=== PATIENT | female | born 1950 ===

== ENCOUNTER 2016-12-25 09:05 | Emergency (ER) | payer MEDICARE, OTHER ==
[2016-09-13 23:18] VITALS: BMI 29.8
--- NOTE | 2016-12-26 09:04 | RAD ---
HISTORY: Not available COMPARISON: No prior. TECHNIQUE: Chest PA and lateral FINDINGS: LUNGS: No active pulmonary disease. PLEURA: No significant pleural effusion identified. No pneumothorax apparent. CARDIOVASCULAR: Normal. OSSEOUS STRUCTURES: No significant abnormalities. VISUALIZED UPPER ABDOMEN: Normal. OTHER FINDINGS: None. IMPRESSION: No active disease.
== END 2016-12-25 12:30 | disposition home or self-care (01) ==
LOC: H.EDERROR 09:05 → H.ER 09:05 → H.EDERROR 12:30
DX: J40 Bronchitis, not specified as acute or chronic (principal)

== ENCOUNTER 2017-09-21 12:34 | Emergency (ER) | payer MEDICARE, OTHER ==
[2017-09-21 12:34] VITALS: BMI 29.8
[2017-09-21 12:48] VITALS: PULSE 90; RESP 18; TEMP 98; O2SAT 100
--- NOTE | 2017-09-21 14:53 | ED PDOC ---
Lower Extremity Pain/Injury Time Seen by Provider: 09/21/17 14:10 Chief Complaint (Nursing): Lower Extremity Problem/Injury Chief Complaint (Provider): hip pain History Per: Patient Additional Complaint(s): 67-year-old female presents with left hip pain that started yesterday. Patient was walking when she stumbled on her right leg causing sharp pain to left hip. Patient is concerned because she has history of L hip replacement. She is able to walk with cane that she uses at baseline. No medication taken for pain relief. PMD: Dr. Kwon Past Medical History Reviewed: Historical Data, Nursing Documentation, Vital Signs Vital Signs: Last Vital Signs Temp 98 F 09/21/17 12:44 Pulse 90 09/21/17 12:44 Resp 18 09/21/17 12:44 BP 168/73 H 09/21/17 12:44 Pulse Ox 100 09/21/17 12:44 - Medical History PMH: Anxiety, Asthma, CAD (Hx of cardiac stent placement), Depression, Diabetes , HTN, Hypothyroidism, Seizures - Surgical History Surgical History: Coronary Stent Other surgeries: Left hip replacement - Family History Family History: States: No Known Family Hx - Living Arrangements Living Arrangements: With Family - Social History Current smoker - smoking cessation education provided: No Alcohol: None Drugs: Denies - Home Medications Home Medications: Ambulatory Orders Medication Instructions Recorded Insulin Human NPH 25 units SC QAM 01/18/14 Insulin Pork Regular 6 units SC AMHS 01/18/14 Levothyroxine Sodium [Synthroid] 1 tab PO DAILY 01/18/14 Nitrofurantoin Macrocrystals 1 cap PO BID #10 cap 07/14/15 [Macrobid] Insulin Human Isophane (NPH) 25 - 26 unit SC QAM 08/29/16 [Novolin N] Insulin Human Regular [Novolin R] 3 unit SC DIN 08/29/16 Insulin Human Regular [Novolin R] 6 unit SC BRK 08/29/16 Levothyroxine [Synthroid] 112 mcg PO DAILY 08/29/16 Fluconazole 150 mg PO ONCE #1 tablet 09/01/16 - Allergies Allergies/Adverse Reactions: Allergies Allergy/AdvReac Type Severity Reaction Status Date / Time iodine Allergy DIZZINESS Verified 09/13/16 23:25 Penicillins Allergy RASH Verified 09/13/16 23:25 Wells Criteria for PE - Wells Criteria for Pulmonary Embolism Clinical Signs and Symptoms of DVT: No P.E is #1 Diagnosis, or Equally Likely: No Heart Rate >100: No Immobilization at least 3 days;Surgery previous 4 weeks: No Previous, objectively diagnosed PE or DVT: No Hemoptysis: No Malignancy w/treatment within 6 months, or palliative: No Total Score: 0 Review of Systems ROS Statement: Except As Marked, All Systems Reviewed And Found Negative Musculoskeletal: Positive for: Other (left hip pain) Physical Exam - Reviewed Nursing Documentation Reviewed: Yes Vital Signs Reviewed: Yes - Physical Exam Appears: Positive for: Well, Non-toxic, No Acute Distress Skin: Negative for: Rash Eye Exam: Positive for: Normal appearance Cardiovascular/Chest: Positive for: Regular Rate, Rhythm Respiratory: Positive for: Normal Breath Sounds. Negative for: Respiratory Distress Extremity: Positive for: Normal ROM Neurologic/Psych: Positive for: Alert, Oriented, Gait (steady with cane that she uses at baseline) - ECG O2 Sat by Pulse Oximetry: 100 Pulse Ox Interpretation: Normal - Other Rad Pelvis and Left Hip x-ray X-Ray: Interpreted by Me, Viewed By Me X-Ray Interpretation: prosthesis is grossly aligned, no acute fx or dis Medical Decision Making Medical Decision Makin67 year old with left hip pain Plan: X-ray left hip and pelvis Pain meds declined Patient is aware of x-ray results, all questions answered. Advised Tylenol for pain and follow up with primary doctor for any persistent symptoms. Disposition - Clinical Impression Clinical Impression: Hip pain - Patient ED Disposition Is Patient to be Admitted: No Counseled Patient/Family Regarding: Diagnosis, Need For Followup - Disposition Referrals: Ari Kwon DO [[facility]] - Disposition: Routine/Home Disposition Time: 15:56 Condition: STABLE Additional Instructions: Tylenol as needed for pain. Follow-up with primary doctor for any persistent symptoms. Instructions: Hip Pain (ED) Forms: [employer] ([place]amese)
[2017-09-21 16:17] VITALS: BP 132/72
--- NOTE | 2017-09-21 16:52 | RAD ---
PROCEDURE: Left Hip X-ray Radiographs. HISTORY: Pain. No history of recent/ related trauma provided anatomic area of interest greater trochanteric region COMPARISON: None. FINDINGS: BONES: Satisfactory position of bipolar hip arthroplasty on the left. No evidence of orthopedic hardware failure. JOINTS: Degenerative changes noted contralateral, right hip SOFT TISSUES: Normal. OTHER FINDINGS: None. IMPRESSION: No significant or acute findings to account for/ related to the clinical presentation.
== END 2017-09-21 16:17 | disposition home or self-care (01) ==
LOC: H.ER 12:34
DX: M25.552 Pain in left hip (principal)

== ENCOUNTER 2017-10-16 11:36 | Inpatient (IN) | payer MEDICARE, OTHER ==
[2017-10-16 11:36] VITALS: BMI 29.8
[2017-10-16] MEDS ORDERED: Sucralfate 1 gm/10 ml Oral Susp UD PO STA (12:35)
--- NOTE | 2017-10-16 12:44 | ED PDOC ---
HPI: Chest Pain Time Seen by Provider: 10/16/17 12:00 Chief Complaint (Nursing): Abdominal Pain Chief Complaint (Provider): Abdominal Pain History Per: Patient History/Exam Limitations: no limitations Onset/Duration Of Symptoms: Hrs (x4), Sudden Onset Current Symptoms Are (Timing): Still Present Additional Complaint(s): 67 year old female with medical history of seizures, hypertension and diabetes, presents to the emergency department for acute onset of severe substernal chest pain associated with burning sensation radiating to back ongoing since 0800 earlier today. Patient reported having her normal breakfast of oatmeal and coffee when symptoms began. Denied any fever, chills, dizziness, shortness of breath, nausea, vomiting, abdominal pain or headache. PMD: Ari Kwon MD Past Medical History Reviewed: Historical Data, Nursing Documentation, Vital Signs Vital Signs: Last Vital Signs Temp 98.0 F 10/16/17 11:54 Pulse 89 10/16/17 11:54 Resp 20 10/16/17 11:54 BP 161/83 H 10/16/17 11:54 Pulse Ox 100 10/16/17 12:51 - Medical History PMH: Anxiety, Asthma, CAD (Hx of cardiac stent placement), Depression, Diabetes , HTN, Hypothyroidism, Seizures Denies: Chronic Kidney Disease - Surgical History Surgical History: Coronary Stent Denies: No Surg Hx - Family History Family History: States: Unknown Family Hx - Social History Current smoker - smoking cessation education provided: No Alcohol: None Drugs: Denies - Immunization History Hx Tetanus Toxoid Vaccination: No Hx Influenza Vaccination: No Hx Pneumococcal Vaccination: No - Home Medications Home Medications: Ambulatory Orders Medication Instructions Recorded Insulin Human NPH 25 units SC QAM 01/18/14 Insulin Pork Regular 6 units SC AMHS 01/18/14 Levothyroxine Sodium [Synthroid] 1 tab PO DAILY 01/18/14 Nitrofurantoin Macrocrystals 1 cap PO BID #10 cap 07/14/15 [Macrobid] Insulin Human Isophane (NPH) 25 - 26 unit SC QAM 08/29/16 [Novolin N] Insulin Human Regular [Novolin R] 3 unit SC DIN 08/29/16 Insulin Human Regular [Novolin R] 6 unit SC BRK 08/29/16 Levothyroxine [Synthroid] 112 mcg PO DAILY 01/20/17 Fluconazole 150 mg PO ONCE #1 tablet 09/01/16 - Allergies Allergies/Adverse Reactions: Allergies Allergy/AdvReac Type Severity Reaction Status Date / Time iodine Allergy DIZZINESS Verified 10/16/17 11:54 Penicillins Allergy RASH Verified 10/16/17 11:54 Review of Systems ROS Statement: Except As Marked, All Systems Reviewed And Found Negative Constitutional: Negative for: Fever, Chills Cardiovascular: Positive for: Chest Pain (substernal with burning sensation) Respiratory: Negative for: Shortness of Breath Gastrointestinal: Negative for: Nausea, Vomiting, Abdominal Pain Musculoskeletal: Positive for: Back Pain Neurological: Negative for: Headache, Dizziness Physical Exam - Reviewed Nursing Documentation Reviewed: Yes Vital Signs Reviewed: Yes - Physical Exam Appears: Positive for: Non-toxic, Uncomfortable, In Acute Distress (moderately due to pain) Cardiovascular/Chest: Positive for: Regular Rate, Rhythm, Chest Non Tender (on palpation) Respiratory: Positive for: Normal Breath Sounds. Negative for: Decreased Breath Sounds, Respiratory Distress Pulses-Dorsalis Pedis (L): 2+ Pulses-Dorsalis Pedis (R): 2+ Gastrointestinal/Abdominal: Positive for: Normal Exam, Soft. Negative for: Tenderness, Mass Extremity: Positive for: Normal ROM (upper/lower), Capillary Refill (<2 seconds) . Negative for: Pedal Edema (bilateral), Calf Tenderness (bilateral) Neurologic/Psych: Positive for: Alert, Oriented - Laboratory Results Result Diagrams: 10/16/17 12:57 10/16/17 12:57 - ECG O2 Sat by Pulse Oximetry: 100 (RA) Pulse Ox Interpretation: Normal Medical Decision Making Medical Decision Making: Initial Impression: Acute onset of substernal chest pain Initial Plan: * EKG * CMP * Lipase * Troponin I * CBC * CXR * Carafate Oral susp 1gm PO * Famotidine 20mg IVP * Morphine 2mg IVP * Accucheck Scribe Attestation: Documented by Sonam Solares, acting as a scribe for Nathan Granados III, DO. Provider Scribe Attestation: All medical record entries made by the Scribe were at my direction and personally dictated by me. I have reviewed the chart and agree that the record accurately reflects my personal performance of the history, physical exam, medical decision making, and the department course for this patient. I have also personally directed, reviewed, and agree with the discharge instructions and disposition. patient still has persistent chest pain. Given age and h/o DM and hypertension, will admit for observation. Disposition - Clinical Impression Clinical Impression: Chest pain Doctor Will See Patient In The: Hospital - Disposition Disposition: Transfer of Care Disposition Time: 14:30 Condition: FAIR Forms: [facility] ([place]) - Pt Status Changed To: Hospital Disposition Of: Observation - POA Present On Arrival: None
[2017-10-16] MEDS ORDERED: Sucralfate 1 gm/10 ml Oral Susp UD ONE (13:03)
[2017-10-16 13:08] LABS: BASO # 0.1 K/uL (0.0-0.2); BASO % 1.4 % (0.0-2.0); EOS % 0.4 % (0.0-4.0); HEMOGLOBIN 13.2 g/dL (12.0-16.0); LYMPH # 1.1 K/uL (1.0-4.3); LYMPH % 12.6 % (20.0-40.0); MEAN CELL VOLUME 90.6 fl (81.0-99.0); MEAN CORPUSCULAR HEMOGLOBIN 30.5 pg (27.0-31.0); MEAN CORPUSCULAR HGB CONC 33.7 g/dL (33.0-37.0); MEAN PLATELET VOLUME 9.4 fl (7.2-11.7); MONO # 0.4 K/uL (0.0-0.8); MONO % 4.9 % (0.0-10.0); NEUT # 7.4 K/uL (1.8-7.0); NEUT % 80.7 % (50.0-75.0); RBC 4.33 Mil/uL (3.80-5.20); RED CELL DISTRIBUTION WIDTH 14.3 % (11.5-14.5); WHITE BLOOD COUNT 9.1 K/uL (4.8-10.8)
[2017-10-16 13:19] LABS: ALB/GLOB RATIO 1.1 (1.0-2.1); ALBUMIN 4.7 g/dL (3.5-5.0); ALT/SGPT 29 U/L (9-52); AST/SGOT 28 U/L (14-36); BLOOD UREA NITROGEN 16 mg/dl (7-17); CALCIUM 10.7 mg/dL (8.4-10.2); GFR AFRICAN-AMERICAN > 60; GFR NON-AFRICAN AMERICAN > 60; LIPASE 13 U/L (23-300)
--- NOTE | 2017-10-16 15:13 | RAD ---
HISTORY: chest pain radiating to the back COMPARISON: Comparison chest 12/25/2016 TECHNIQUE: Chest PA and lateral FINDINGS: LUNGS: No active pulmonary disease. PLEURA: No significant pleural effusion identified. No pneumothorax apparent. CARDIOVASCULAR: Normal. OSSEOUS STRUCTURES: Re- demonstrated is a chronic anterior wedge compression fracture of what appears to be the the T12 segment. Mild multilevel degenerative spondylosis of the thoracic spine. No significant abnormalities. VISUALIZED UPPER ABDOMEN: Normal. OTHER FINDINGS: None. IMPRESSION: No acute consolidation.
[2017-10-16] MEDS ORDERED: Alum-Mag Hydrox-Simethicone Susp (30 mL) PO STA (15:46)
--- NOTE | 2017-10-16 16:54 | CP.PCM.CON ---
History of Present Illness - History of Present Illness History of Present Illness: pt very poor historian. unable to answer most questions, appears very anxious and uncomfortable. pt states she has had substernal burning since this morning. she says this radiates to her back. denies palp, sob, vommiting. she admits to nausea, mild abd discomfort. Pt admits to intermittent left sided cp for 3 days ( 2 weeks ago). she took her asa for 3 days and these episodes resolved. today pt recieved pepcid, viscous lido and carafate without relief. pt has a hx of pci to prox lad and mid om1 in 2011 at [facility]. she is noncompliant with asa, taking it only on occasion. Review of Systems - Review of Systems Systems not reviewed;Unavailable: Acuity of Condition, Uncooperative Past Patient History - Infectious Disease Hx of Infectious Diseases: None - Past Medical History & Family History Past Medical History?: Yes - Past Social History Smoking Status: Current Some Days Smoker Chewing Tobacco Use: No Cigar Use: No Alcohol: None Drugs: Denies - CARDIAC Hx Cardiac Disorders: Yes - PULMONARY Hx Asthma: Yes - NEUROLOGICAL Hx Seizures: Yes - HEENT Hx HEENT Problems: No - RENAL Hx Chronic Kidney Disease: No - ENDOCRINE/METABOLIC Hx Endocrine Disorders: Yes - HEMATOLOGICAL/ONCOLOGICAL Hx Blood Transfusions: Yes - INTEGUMENTARY Hx Dermatological Problems: No - MUSCULOSKELETAL/RHEUMATOLOGICAL Hx Falls: Yes - GASTROINTESTINAL Hx Gastrointestinal Disorders: No - GENITOURINARY/GYNECOLOGICAL Hx Genitourinary Disorders: No - PSYCHIATRIC Hx Psychophysiologic Disorder: Yes - SURGICAL HISTORY Hx Coronary Stent: Yes - ANESTHESIA Hx Anesthesia: Yes Hx Anesthesia Reactions: No Hx Malignant Hyperthermia: No Meds Allergies/Adverse Reactions: Allergies Allergy/AdvReac Type Severity Reaction Status Date / Time iodine Allergy DIZZINESS Verified 10/16/17 11:54 Penicillins Allergy RASH Verified 10/16/17 11:54 Physical Exam - Constitutional Appears: In Acute Distress - Head Exam Head Exam: ATRAUMATIC, NORMAL INSPECTION, NORMOCEPHALIC - Eye Exam Eye Exam: EOMI, Normal appearance, PERRL. absent: Conjunctival injection, Nystagmus, Periorbital swelling, Periorbital tenderness, Scleral icterus Pupil Exam: NORMAL ACCOMODATION, PERRL. absent: Fixed, Irregular, Miosis, Mydriatic, Unequal - ENT Exam ENT Exam: Mucous Membranes Moist, Normal Exam. absent: Mucous Membranes Dry, Normal External Ear Exam, Normal Oropharynx, TM's Normal Bilaterally - Neck Exam Neck exam: Positive for: Normal Inspection. Negative for: Full Rom, Lymphadenopathy, Meningismus, Tenderness, Thyromegaly - Respiratory Exam Respiratory Exam: Clear to Auscultation Bilateral, NORMAL BREATHING PATTERN. absent: Accessory Muscle Use, Chest Wall Tenderness, Decreased Breath Sounds, Prolonged Expiratory Phase, Rales, Rhonchi, Wheezes, Respiratory Distress, Stridor - Cardiovascular Exam Cardiovascular Exam: REGULAR RHYTHM, +S1, +S2, Systolic Murmur. absent: Bradycardia, Tachycardia, Clicks, Diastolic murmur, Gallop, Irregular Rhythm, JVD, RRR, Rubs, +S4 - GI/Abdominal Exam GI & Abdominal Exam: Normal Bowel Sounds, Soft, Tenderness. absent: Bruit, Diminished Bowel Sounds, Distended, Firm, Guarding, Hernia, Hyperactive Bowel Sounds, Hypoactive Bowel Sounds, Mass, Organomegaly, Pulsatile Mass, Rebound, Rigid - Rectal Exam Rectal Exam: Deferred. absent: Black Stool, Bloody Stool, Hemorrhoids, Fecal Impaction, NORMAL INSPECTION - Exam Exam: absent: Circumcision, NORMAL INSPECTION, Scrotal Swelling, Testicular Tenderness, Uretheral Discharge, Testicular Vertical Lie, Bladder Distension External exam: absent: Ecchymosis, Erythema, Lacerations, Lesions, NORMAL EXTERNAL EXAM, Swelling Speculum exam: absent: Cervical Discharge, Erythema, Foreign Body, Laceration, NORMAL SPECULUM EXAM, Tissue, Vaginal Bleeding, Vaginal Discharge Bimanual exam: absent: Adenexal Mass, Adnexal, Cervical Motion Tendernes, NORMAL BIMANUAL EXAM, Uterine Enlargement, Uterine Tenderness - Extremities Exam Extremities exam: Positive for: normal inspection. Negative for: calf tenderness, full ROM, joint swelling, normal capillary refill, pedal edema, tenderness, pedal pulses present - Back Exam Back exam: NORMAL INSPECTION. absent: CVA tenderness (L), CVA tenderness (R), FULL ROM, muscle spasm, paraspinal tenderness, rash noted, tenderness, vertebral tenderness - Neurological Exam Neurological exam: Alert, CN II-XII Intact, Oriented x3 - Psychiatric Exam Psychiatric exam: Anxious - Skin Skin Exam: Dry, Intact, Normal Color, Warm Results - Vital Signs Recent Vital Signs: Last Vital Signs Temp 97.7 F 10/16/17 16:10 Pulse 64 10/16/17 16:10 Resp 18 10/16/17 16:10 BP 150/54 L 10/16/17 16:10 Pulse Ox 97 10/16/17 15:55 - Labs Result Diagrams: 10/16/17 12:57 10/16/17 12:57 Labs: Laboratory Results - last 24 hr 10/16/17 10/16/17 10/16/17 12:13 12:57 12:57 WBC 9.1 RBC 4.33 Hgb 13.2 Hct 39.3 MCV 90.6 MCH 30.5 MCHC 33.7 RDW 14.3 Plt Count 261 MPV 9.4 Neut % (Auto) 80.7 H Lymph % (Auto) 12.6 L [place] % (Auto) 4.9 Eos % (Auto) 0.4 Baso % (Auto) 1.4 Neut # (Auto) 7.4 H Lymph # (Auto) 1.1 [place] # (Auto) 0.4 Eos # (Auto) 0.0 Baso # (Auto) 0.1 Sodium 144 Potassium 4.4 Chloride 102 Carbon Dioxide 28 Anion Gap 18 BUN 16 Creatinine 0.7 Est GFR ( Amer) > 60 Est GFR (Non-Af Amer) > 60 POC Glucose (mg/dL) 158 H Random Glucose 94 Calcium 10.7 H Total Bilirubin 0.6 AST 28 ALT 29 Alkaline Phosphatase 97 Troponin I 0.0780 Total Protein 8.9 H Albumin 4.7 Globulin 4.2 H Albumin/Globulin Ratio 1.1 Lipase 13 L 10/16/17 10/16/17 13:48 14:41 WBC RBC Hgb Hct MCV MCH MCHC RDW Plt Count MPV Neut % (Auto) Lymph % (Auto) [place] % (Auto) Eos % (Auto) Baso % (Auto) Neut # (Auto) Lymph # (Auto) [place] # (Auto) Eos # (Auto) Baso # (Auto) Sodium Potassium Chloride Carbon Dioxide Anion Gap BUN Creatinine Est GFR ( Amer) Est GFR (Non-Af Amer) POC Glucose (mg/dL) 48 L 142 H Random Glucose Calcium Total Bilirubin AST ALT Alkaline Phosphatase Troponin I Total Protein Albumin Globulin Albumin/Globulin Ratio Lipase - EKG Data EKG Interpreted by: Myself EKG shows normal: Sinus rhythm Rate: Normal Assessment & Plan (1) Abdominal pain Status: Acute (2) HTN (hypertension) Status: Acute (3) Chest pain Status: Acute (4) CAD (coronary artery disease) Status: Acute (5) Diabetes mellitus Status: Acute - Assessment and Plan (Free Text) Plan: ETIOLOGY OF PTS SUBSTERNAL CP IS UNCLEAR. FIRST TROP AND EKG WNL. TREATMENT FOR GERD DID NOT BRING ON RELIEF. SL NTG DID NOT BRING RELIEF. WILL ORDER ECHO, STRESS TEST, ASA AND PLAVIX. LOW DOSE METOPROLOL. CONT TELE MONITOR. WILL NEED FULL LIST OF PTS HOME MEDS. NO REGLAN GIVEN HX OF SZ D/O
[2017-10-16] MEDS ORDERED: Bismuth Subsalicylate 262 mg Chew Tab PO PRN (18:32)
--- NOTE | 2017-10-16 19:40 | PCM.RRT ---
BOIL OFF MACHINE OPERATOR CLOTH Nurse Assessment - Situation Location: telemetry Room Number: 407-2 BOIL OFF MACHINE OPERATOR CLOTH Reason for Call: Change in Mental Status BOIL OFF MACHINE OPERATOR CLOTH Called By: RN - IV IV Inserted during BOIL OFF MACHINE OPERATOR CLOTH?: No - Respiratory Oxygen Delivery Method: Nasal Cannula Received Nebulizer Treatments: No Was the Patient Ventilated with Bag/Mask 100% O2?: No Secretions Suctioned?: No Was the Patient Intubated?: No Was the Patient Placed on a Ventilator?: No - Medication Medications Administered During BOIL OFF MACHINE OPERATOR CLOTH: Xanax 0.25 mg PO - Diagnostic Test Ordered EKG: No Chest X-Ray: No CT Scan: No - Vital Signs Vital Signs: Rapid Response Vital Sign Blood Pressure 176/75 Pulse Rate 64 Respiratory Rate 21 Temperature 97.5 F Oxygen Saturation 99 - Time BOIL OFF MACHINE OPERATOR CLOTH Ended Time BOIL OFF MACHINE OPERATOR CLOTH Ended: 18:55 - Vital Signs at end of BOIL OFF MACHINE OPERATOR CLOTH Vital Signs at end of BOIL OFF MACHINE OPERATOR CLOTH: Rapid Response End Vital Sign Blood Pressure 176/73 Pulse Rate 64 Respiratory Rate 21 O2 Sat by Pulse Oximetry 99 - Recommendations BOIL OFF MACHINE OPERATOR CLOTH Level of Care Recommendations: Remain in current setting I.Reason for BOIL OFF MACHINE OPERATOR CLOTH - A) Acute Change in Patient: Subjective: S: 67 y/o female with PMHx of HTN, HLD, DM, CAD s/p stenting (several years ago) , 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 Nurse whom was at bedside reported the pt stopped responding and had associated "stiffening" of upper extremities. Entire episode lasted approx 5-10secs as per witness. No associated weakness, numbness/tingling, post-ictal confusion, bladder/bowel incontinence. O: ROS: no fever/chills, headaches, changes in vision, dizziness/lightheadedness , CP/SOB/Palpitations, N/V/D/C, urinary symptoms, weakness, muscle pain, bladder /bowel incontinence, numbness/tingling. PE: Vitals on presentation: 97. 5 F, BP 176/75, HR 99, POX: 99% RA Gen: AAOx3, NAD Cardio: RRR, S1S2+, no MRG Lungs: CTA B/L, no WRR Neuro: CN II-XII grossly intact, no pronator drift, no asymmetry, msk strength 5 /5 b/l in upper and lower extremities, sensation intact Assessment: 67 y/o female with BOIL OFF MACHINE OPERATOR CLOTH called for suspected breakthrough seizure activity. Plan: vitals stable, pt alert and oriented, no focal neurological deficit, no seizure activity witnessed during BOIL OFF MACHINE OPERATOR CLOTH admission labs and imaging reviewed with attending -prolactin ordered -non contrast head CT ordered -EEG ordered -attending discussed case with admitting MD, wanting neurology consult -consult placed with Dr. Cohn Vitals on BOIL OFF MACHINE OPERATOR CLOTH end: BP: 176/73, HR 64, RR 16 POX 99% - Neurological Status (Select all that apply): Alert, Responsive, Oriented, Verbal, Follows Commands - Respiratory Oxygen Delivery Method: Nasal Cannula @L/min Oxygen Flow Rate: 2
[2017-10-16] MEDS ORDERED: Enoxaparin 40 mg Syringe SC SCH (21:00)
[2017-10-16 21:05] LABS: PROLACTIN 22.8 ng/mL (3.0-18.9)
[2017-10-16] MEDS: Enoxaparin 80 mg Syringe SC SCH (22:07)
--- NOTE | 2017-10-17 07:33 | CT ---
PROCEDURE: CT HEAD WITHOUT CONTRAST. HISTORY: questionable seizure COMPARISON: None available. TECHNIQUE: Axial computed tomography images were obtained through the head/brain without intravenous contrast. Radiation dose: Total exam DLP = mGy-cm. This CT exam was performed using one or more of the following dose reduction techniques: Automated exposure control, adjustment of the mA and/or kV according to patient size, and/or use of iterative reconstruction technique. FINDINGS: HEMORRHAGE: No intracranial hemorrhage. BRAIN: No mass effect or edema. No atrophy or chronic microvascular ischemic changes. VENTRICLES: Unremarkable. No hydrocephalus. CALVARIUM: Unremarkable. PARANASAL SINUSES: Unremarkable as visualized. No significant inflammatory changes. MASTOID AIR CELLS: Unremarkable as visualized. No inflammatory changes. OTHER FINDINGS: None. IMPRESSION: Normal CT of the Head.
[2017-10-17] MEDS ORDERED: Insulin Regular 100 units/ml SC SCH ×2 (08:00→17:00)
[2017-10-17 08:03] LABS: HEMOGLOBIN 12.5 g/dL (12.0-16.0); MEAN CELL VOLUME 91.5 fl (81.0-99.0); MEAN CORPUSCULAR HEMOGLOBIN 30.6 pg (27.0-31.0); MEAN CORPUSCULAR HGB CONC 33.5 g/dL (33.0-37.0); RBC 4.07 Mil/uL (3.80-5.20); RED CELL DISTRIBUTION WIDTH 14.6 % (11.5-14.5); WHITE BLOOD COUNT 7.7 K/uL (4.8-10.8)
[2017-10-17 08:14] LABS: ALB/GLOB RATIO 1.1 (1.0-2.1); ALBUMIN 4.2 g/dL (3.5-5.0); ALT/SGPT 31 U/L (9-52); AMYLASE 44 U/L (30-110); AST/SGOT 56 U/L (14-36); BLOOD UREA NITROGEN 13 mg/dl (7-17); CALCIUM 10.2 mg/dL (8.4-10.2); GFR AFRICAN-AMERICAN > 60; GFR NON-AFRICAN AMERICAN > 60; LIPASE 17 U/L (23-300)
[2017-10-17] MEDS: Levothyroxine 125 MCG TAB PO SCH (08:20)
[2017-10-17 08:34] LABS: T4 7.95 ug/dl (5.5-11.0)
[2017-10-17] MEDS ORDERED: Enoxaparin 40 mg Syringe SC SCH (09:00)
[2017-10-17 10:21] LABS: BARBITURATES, UR NEGATIVE (NEGATIVE); BENZODIAZEPINES, UR NEGATIVE (NEGATIVE); OPIATES, UR NEGATIVE (NEGATIVE); PHENCYCLIDINE, UR NEGATIVE (NEGATIVE)
[2017-10-17] MEDS: Enoxaparin 80 mg Syringe SC SCH ×2 (10:58→21:35)
[2017-10-17] MEDS: Cholecalciferol 1,000 INTLU TAB PO SCH (10:58)
--- NOTE | 2017-10-17 11:04 | CARD ---
APPROVED REPORT EXAM: Two-dimensional and M-mode echocardiogram with Doppler and color Doppler. Other Information Quality : GoodRhythm : NSR INDICATION Chest Pain 2D DIMENSIONS IVSd1.24 (0.7-1.1cm)LVDd4.56 (3.9-5.9cm) LVOT Diameter1.79 (1.8-2.4cm)PWd0.78 (0.7-1.1cm) IVSs1.06 (0.8-1.2cm)LVDs3.36 (2.5-4.0cm) FS (%) 26.3 %PWs0.90 (0.8-1.2cm) M-Mode DIMENSIONS Left Atrium (MM)3.88 (2.5-4.0cm)IVSd1.06 (0.7-1.1cm) Aortic Root3.38 (2.2-3.7cm)LVDd4.59 (4.0-5.6cm) Aortic Cusp Exc.1.74 (1.5-2.0cm)PWd0.82 (0.7-1.1cm) IVSs1.18 cmFS (%) 33 % LVDs3.09 (2.0-3.8cm)PWs1.32 cm Mitral Valve MV E Xwjiiwnn75.8cm/sMV DECEL [id number] A Wqlrkhdw424.0cm/s MV GKW88riB/A ratio0.9MVA (PHT)2.54cm2 TDI Lateral E' Peak V7.17cm/sMedial E' Peak V8.07cm/sE/Lateral E'13.4 E/Medial E'11.9 Pulmonary Valve PV Peak Tlnxvvzr13.9cm/s LEFT VENTRICLE The left ventricle is normal size. There is normal left ventricular wall thickness. The left ventricular function is normal. The left ventricular ejection fraction is within the normal range. The Ejection Fraction is 60-65%. There is normal LV segmental wall motion. The left ventricular diastolic function is normal. RIGHT VENTRICLE The right ventricle is normal size. There is normal right ventricular wall thickness. The right ventricular systolic function is normal. ATRIA The left atrium size is normal. The right atrium size is normal. AORTIC VALVE The aortic valve is normal in structure. No aortic regurgitation is present. There is no aortic valvular stenosis. MITRAL VALVE The mitral valve is normal in structure. There is no mitral valve stenosis. There is no mitral valve regurgitation noted. TRICUSPID VALVE The tricuspid valve is normal in structure. There is no tricuspid valve regurgitation noted. There is no tricuspid valve stenosis. PULMONIC VALVE The pulmonary valve is normal in structure. There is no pulmonic valvular regurgitation. GREAT VESSELS The aortic root is normal in size. The IVC is normal in size and collapses >50% with inspiration. PERICARDIAL EFFUSION The pericardium appears normal. <Conclusion> The left ventricle is normal size. The left ventricular function is normal. The left ventricular ejection fraction is within the normal range. The Ejection Fraction is 60-65%.
--- NOTE | 2017-10-17 11:58 | CP.PCM.CON ---
History of Present Illness - History of Present Illness History of Present Illness: Psychiatry consult CC: "I had chest pain." HPI: 67 y/o female with PMHx of HTN, HLD, DM, CAD s/p stenting (several years ago), petite mal seizures as child, admitted for evaluation of acute chest pain. Patient reports that she does not want to take all the medications the doctors prescribe because she is concerned about side effects and being over medicated. She is concerned that the elderly are constantly overmedicated by doctors. She denies paranoid ideation that anyone is trying to harm her, follow her, poison her. She denies depression/anxiety/AH/VH/SI/HI. She denies acute psychiatric complaints and does not believe she needs psychiatric medications. Patient is A + O x 3 and is aware that there are both risks and benefits associated with taking medications. PPHx: No past psychiatric treatment, hospitalizations or medications. PMHx: HTN, HLD, DM, CAD s/p stenting (several years ago), petite mal seizures ALL: Iodine, PCN SHx: Lives alone, , has 3 adult children. Used to work at a [employer], now retired. 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 Patient denies all acute psychiatric complaints and is not acutely psychotic. -No acute psychiatric medications or treatment indicated at this time. Past Patient History - Infectious Disease Hx of Infectious Diseases: None - Past Medical History & Family History Past Medical History?: Yes - Past Social History Smoking Status: Current Some Days Smoker Chewing Tobacco Use: No Cigar Use: No Alcohol: None Drugs: Denies - CARDIAC Hx Cardiac Disorders: Yes - PULMONARY Hx Asthma: Yes - NEUROLOGICAL Hx Seizures: Yes - HEENT Hx HEENT Problems: No - RENAL Hx Chronic Kidney Disease: No - ENDOCRINE/METABOLIC Hx Endocrine Disorders: Yes - HEMATOLOGICAL/ONCOLOGICAL Hx Blood Transfusions: Yes - INTEGUMENTARY Hx Dermatological Problems: No - MUSCULOSKELETAL/RHEUMATOLOGICAL Hx Falls: Yes - GASTROINTESTINAL Hx Gastrointestinal Disorders: No - GENITOURINARY/GYNECOLOGICAL Hx Genitourinary Disorders: No - PSYCHIATRIC Hx Psychophysiologic Disorder: Yes - SURGICAL HISTORY Hx Coronary Stent: Yes - ANESTHESIA Hx Anesthesia: Yes Hx Anesthesia Reactions: No Hx Malignant Hyperthermia: No Meds Allergies/Adverse Reactions: Allergies Allergy/AdvReac Type Severity Reaction Status Date / Time iodine Allergy DIZZINESS Verified 10/16/17 11:54 Penicillins Allergy RASH Verified 10/16/17 11:54 - Medications Medications: Current Medications Aspirin (Aspirin Chewable) 81 mg PO DAILY [facility] Last Admin: 10/17/17 10:57 Dose: 81 mg Bismuth Subsalicylate (Pepto Bismol) 524 mg PO Q1 PRN PRN Reason: Heartburn Last Admin: 10/16/17 19:30 Dose: 524 mg Cholecalciferol (Vitamin D) 2,000 intlu PO DAILY [facility] Last Admin: 10/17/17 10:58 Dose: Not Given Clopidogrel Bisulfate (Plavix) 75 mg PO DAILY [facility] Last Admin: 10/17/17 10:58 Dose: Not Given Enoxaparin Sodium (Lovenox) 70 mg SC Q12 [facility] PRN Reason: Protocol Last Admin: 10/17/17 10:58 Dose: Not Given Famotidine (Pepcid) 40 mg PO DAILY [facility] Last Admin: 10/17/17 10:58 Dose: Not Given Insulin Human Lispro (Humalog) 0 units SC ACHS [facility] PRN Reason: Protocol Insulin Human Regular (Humulin R) 2 units SC DIN [facility] Insulin Human Regular (Humulin R) 5 units SC BRK [facility] Last Admin: 10/17/17 08:21 Dose: 5 units Levothyroxine Sodium (Synthroid) 125 mcg PO DAILY@0630 [facility] Last Admin: 10/17/17 08:20 Dose: 125 mcg Meclizine HCl (Antivert) 25 mg PO DAILY PRN PRN Reason: Dizziness Metoprolol Tartrate (Lopressor) 25 mg PO Q12 [facility] Last Admin: 10/17/17 10:57 Dose: Not Given Nitroglycerin (Nitrostat Sl Tab) 0.4 mg SL Q5M PRN PRN Reason: Other Last Admin: 10/16/17 22:04 Dose: 0.4 mg Results - Vital Signs Recent Vital Signs: Last Vital Signs Temp 98.1 F 10/17/17 09:00 Pulse 61 10/17/17 10:57 Resp 18 10/17/17 09:00 BP 147/84 10/17/17 10:57 Pulse Ox 97 10/17/17 09:00 - Labs Result Diagrams: 10/17/17 06:45 10/17/17 06:45 Labs: Laboratory Results - last 24 hr 10/16/17 10/16/17 10/16/17 12:13 12:57 12:57 WBC 9.1 RBC 4.33 Hgb 13.2 Hct 39.3 MCV 90.6 MCH 30.5 MCHC 33.7 RDW 14.3 Plt Count 261 MPV 9.4 Neut % (Auto) 80.7 H Lymph % (Auto) 12.6 L Banks % (Auto) 4.9 Eos % (Auto) 0.4 Baso % (Auto) 1.4 Neut # (Auto) 7.4 H Lymph # (Auto) 1.1 Banks # (Auto) 0.4 Eos # (Auto) 0.0 Baso # (Auto) 0.1 Sodium 144 Potassium 4.4 Chloride 102 Carbon Dioxide 28 Anion Gap 18 BUN 16 Creatinine 0.7 Est GFR ( Amer) > 60 Est GFR (Non-Af Amer) > 60 POC Glucose (mg/dL) 158 H Random Glucose 94 Lactic Acid Calcium 10.7 H Magnesium Total Bilirubin 0.6 AST 28 ALT 29 Alkaline Phosphatase 97 Troponin I 0.0780 Total Protein 8.9 H Albumin 4.7 Globulin 4.2 H Albumin/Globulin Ratio 1.1 Amylase Lipase 13 L Thyroxine (T4) TSH 3rd Generation Prolactin Urine Opiates Screen Urine Methadone Screen Ur Barbiturates Screen Ur Phencyclidine Scrn Ur Amphetamines Screen U Benzodiazepines Scrn U Oth Cocaine Metabols U Cannabinoids Screen Alcohol, Quantitative 10/16/17 10/16/17 10/16/17 13:48 14:41 17:25 WBC RBC Hgb Hct MCV MCH MCHC RDW Plt Count MPV Neut % (Auto) Lymph % (Auto) Banks % (Auto) Eos % (Auto) Baso % (Auto) Neut # (Auto) Lymph # (Auto) Banks # (Auto) Eos # (Auto) Baso # (Auto) Sodium Potassium Chloride Carbon Dioxide Anion Gap BUN Creatinine Est GFR ( Amer) Est GFR (Non-Af Amer) POC Glucose (mg/dL) 48 L 142 H 135 H Random Glucose Lactic Acid Calcium Magnesium Total Bilirubin AST ALT Alkaline Phosphatase Troponin I Total Protein Albumin Globulin Albumin/Globulin Ratio Amylase Lipase Thyroxine (T4) TSH 3rd Generation Prolactin Urine Opiates Screen Urine Methadone Screen Ur Barbiturates Screen Ur Phencyclidine Scrn Ur Amphetamines Screen U Benzodiazepines Scrn U Oth Cocaine Metabols U Cannabinoids Screen Alcohol, Quantitative 10/16/17 10/16/17 10/16/17 19:10 19:35 21:21 WBC RBC Hgb Hct MCV MCH MCHC RDW Plt Count MPV Neut % (Auto) Lymph % (Auto) Banks % (Auto) Eos % (Auto) Baso % (Auto) Neut # (Auto) Lymph # (Auto) Banks # (Auto) Eos # (Auto) Baso # (Auto) Sodium Potassium Chloride Carbon Dioxide Anion Gap BUN Creatinine Est GFR ( Amer) Est GFR (Non-Af Amer) POC Glucose (mg/dL) 154 H Random Glucose Lactic Acid Calcium Magnesium Total Bilirubin AST ALT Alkaline Phosphatase Troponin I 1.1000 H* Total Protein Albumin Globulin Albumin/Globulin Ratio Amylase Lipase Thyroxine (T4) TSH 3rd Generation Prolactin 22.8 H Urine Opiates Screen Urine Methadone Screen Ur Barbiturates Screen Ur Phencyclidine Scrn Ur Amphetamines Screen U Benzodiazepines Scrn U Oth Cocaine Metabols U Cannabinoids Screen Alcohol, Quantitative < 10 10/17/17 10/17/17 10/17/17 05:45 06:14 06:45 WBC RBC Hgb Hct MCV MCH MCHC RDW Plt Count MPV Neut % (Auto) Lymph % (Auto) Banks % (Auto) Eos % (Auto) Baso % (Auto) Neut # (Auto) Lymph # (Auto) Banks # (Auto) Eos # (Auto) Baso # (Auto) Sodium 139 Potassium 4.6 Chloride 97 L Carbon Dioxide 30 Anion Gap 17 BUN 13 Creatinine 0.6 L Est GFR ( Amer) > 60 Est GFR (Non-Af Amer) > 60 POC Glucose (mg/dL) 294 H Random Glucose 348 H Lactic Acid 0.7 Calcium 10.2 Magnesium 1.8 Total Bilirubin 0.9 AST 56 H D ALT 31 Alkaline Phosphatase 94 Troponin I 7.4200 H* Total Protein 7.9 Albumin 4.2 Globulin 3.7 Albumin/Globulin Ratio 1.1 Amylase 44 Lipase 17 L Thyroxine (T4) 7.95 TSH 3rd Generation 18.80 H Prolactin Urine Opiates Screen Urine Methadone Screen Ur Barbiturates Screen Ur Phencyclidine Scrn Ur Amphetamines Screen U Benzodiazepines Scrn U Oth Cocaine Metabols U Cannabinoids Screen Alcohol, Quantitative 10/17/17 10/17/17 10/17/17 06:45 09:06 11:10 WBC 7.7 RBC 4.07 Hgb 12.5 Hct 37.2 MCV 91.5 MCH 30.6 MCHC 33.5 RDW 14.6 H Plt Count 239 MPV Neut % (Auto) Lymph % (Auto) Banks % (Auto) Eos % (Auto) Baso % (Auto) Neut # (Auto) Lymph # (Auto) Banks # (Auto) Eos # (Auto) Baso # (Auto) Sodium Potassium Chloride Carbon Dioxide Anion Gap BUN Creatinine Est GFR ( Amer) Est GFR (Non-Af Amer) POC Glucose (mg/dL) 383 H Random Glucose Lactic Acid Calcium Magnesium Total Bilirubin AST ALT Alkaline Phosphatase Troponin I Total Protein Albumin Globulin Albumin/Globulin Ratio Amylase Lipase Thyroxine (T4) TSH 3rd Generation Prolactin Urine Opiates Screen Negative Urine Methadone Screen Negative Ur Barbiturates Screen Negative Ur Phencyclidine Scrn Negative Ur Amphetamines Screen Negative U Benzodiazepines Scrn Negative U Oth Cocaine Metabols Negative U Cannabinoids Screen Negative Alcohol, Quantitative
[2017-10-17] MEDS: Insulin Lispro (humaLOG) 100 Units/ml Inj SC SCH ×3 (12:05→21:35)
--- NOTE | 2017-10-17 12:20 | CARD ---
APPROVED REPORT EKG Measurement Heart [id number] [place] [id number] <Conclusion> Normal sinus rhythm Normal ECG
--- NOTE | 2017-10-17 12:36 | MRI ---
EXAM: MR Head Without Intravenous Contrast EXAM DATE/TIME: Examination ordered 10/16/2017 9:11 PM. Image number total count reviewed 413 CLINICAL HISTORY: The patient is 67 years old and is female; Signs and symptoms; Other: Seizure; Additional info: Seizure-like activity Facility exam id and description: Mri br s brain without contrast TECHNIQUE: Magnetic resonance images of the head/brain without intravenous contrast in multiple planes. COMPARISON: CT - HEAD W/O CONTRAST 2017-10-16 19:58 FINDINGS: BRAIN: There are mild confluent T2 hyperintensities on T2 and FLAIR imaging in the periventricular white matter, bilaterally. These hyperintensities do not exert mass effect or restricted diffusion. These are felt to represent the sequela of small vessel ischemic disease (microangiopathy). There is no restricted diffusion identified. High-resolution coronal images demonstrate NO abnormalities in the mesial temporal lobes. There is no mass, mass-effect or midline shift. There are no intra-or extra-axial fluid collections. No intracranial hemorrhage is identified on gradient echo. The rose/white matter differentiation is intact. To the extent that they may be viewed on routine MR images, the intracranial vascular flow-voids have a normal appearance. VENTRICLES: Ventricles: The ventricles, sulci, and basilar cisterns are prominent, compatible with minimal stable atrophy. BONES/JOINTS: Unremarkable. SINUSES: The visualized paranasal sinuses are clear. No acute sinusitis. MASTOID AIR CELLS: Unremarkable as visualized. No mastoid effusion. ORBITS: The globes and orbits are intact. SELLA: Again noted is an enlarged and partially empty sella. The midline structures including the clivus, corpus callosum, superior sagittal sinus and cerebellar tonsils are normal. OTHER FINDINGS: NO hemosiderin deposition on gradient echo. IMPRESSION: 1. There are mild confluent T2 hyperintensities on T2 and FLAIR imaging in the periventricular white matter, bilaterally. These hyperintensities do not exert mass effect or restricted diffusion. These are felt to represent the sequela of small vessel ischemic disease (microangiopathy). The appearance is stable from the prior head CT. 2. There is no restricted diffusion identified. NO evidence of ischemia. 3. Again noted is an enlarged and partially empty sella. 4. High-resolution coronal images demonstrate NO abnormalities in the mesial temporal lobes.
--- NOTE | 2017-10-17 14:19 | CP.PCM.PN ---
Subjective - Date & Time of Evaluation Date of Evaluation: 10/17/17 Time of Evaluation: 15:22 - Subjective Subjective: pt refusing meds b/c she does not want to have a bag of meds. pschy consult deemed pt competent Objective - Vital Signs/Intake and Output Vital Signs (last 24 hours): Temp Pulse Resp BP Pulse Ox 98.2 F 65 18 149/77 99 10/17/17 12:25 10/17/17 12:25 10/17/17 12:25 10/17/17 12:25 10/17/17 12:25 - Medications Medications: Current Medications Aspirin (Aspirin Chewable) 81 mg PO DAILY [facility] Last Admin: 10/17/17 10:57 Dose: 81 mg Bismuth Subsalicylate (Pepto Bismol) 524 mg PO Q1 PRN PRN Reason: Heartburn Last Admin: 10/16/17 19:30 Dose: 524 mg Cholecalciferol (Vitamin D) 2,000 intlu PO DAILY [facility] Last Admin: 10/17/17 10:58 Dose: Not Given Clopidogrel Bisulfate (Plavix) 75 mg PO DAILY [facility] Last Admin: 10/17/17 10:58 Dose: Not Given Enoxaparin Sodium (Lovenox) 70 mg SC Q12 [facility] PRN Reason: Protocol Last Admin: 10/17/17 10:58 Dose: Not Given Famotidine (Pepcid) 40 mg PO DAILY [facility] Last Admin: 10/17/17 10:58 Dose: Not Given Insulin Human Lispro (Humalog) 0 units SC ACHS [facility] PRN Reason: Protocol Last Admin: 10/17/17 12:05 Dose: 8 units Insulin Human Regular (Humulin R) 2 units SC DIN [facility] Insulin Human Regular (Humulin R) 5 units SC BRK [facility] Last Admin: 10/17/17 08:21 Dose: 5 units Levothyroxine Sodium (Synthroid) 125 mcg PO DAILY@0630 [facility] Last Admin: 10/17/17 08:20 Dose: 125 mcg Meclizine HCl (Antivert) 25 mg PO DAILY PRN PRN Reason: Dizziness Metoprolol Tartrate (Lopressor) 25 mg PO Q12 [facility] Last Admin: 10/17/17 10:57 Dose: Not Given Nitroglycerin (Nitrostat Sl Tab) 0.4 mg SL Q5M PRN PRN Reason: Other Last Admin: 10/16/17 22:04 Dose: 0.4 mg - Labs Labs: 10/17/17 06:45 10/17/17 06:45 Assessment and Plan (1) Abdominal pain Status: Acute (2) HTN (hypertension) Status: Acute (3) Chest pain Status: Acute (4) CAD (coronary artery disease) Status: Acute (5) Diabetes mellitus Status: Acute (6) NSTEMI (non-ST elevated myocardial infarction) Status: Acute (7) Medical non-compliance Status: Acute - Assessment and Plan (Free Text) Plan: pt needs cath on thursday. i will not do cath or stent unless pt agrees to and is compliant with dual antiplt therapy. i explained to pt that she is having a progressive heart attack and she needs to take the meds at this time. she has agreed. i explained the risk of , arrythmia, further mi, chf, vt.
--- NOTE | 2017-10-17 15:09 | CP.PCM.HP ---
History of Present Illness - History of Present Illness History of Present Illness: CC: Abdominal pain/Chest pain. 67 y/o F, Hx of Petite Mal Seizure as child, CAD with coronary stent placement, came to ER [facility] on 10/16/17 to be evaluated Chest pain since 8am DOA , acute onset of substernal chest pain radiated to the back , also epigastric with burning sensation moderate intensity 5:10, associated to nausea, no vomiting or diarrhea On admission, c/o of Chest pain, constant, moderate intensity of 5:10 radiates to back. Pt non in compliance with her ASA. After admission, [employer] was called by nurse for suspected breakthrough seizure activity, Pt stopped responding with associated stiffening of upper extremities for a laps of 5-10 seconds, no post-ictal confusion, weakness, numbness/tingling , headache, vomiting. Aggravated factor: Non compliance with medications, she is concern to be overmedicated by doctors for her advanced age. Pt denied: Fever, chills, SOB, cough, palpitations, dizziness, weakness, numbness/tingling, v/d, urinary symptoms, change in vision,sick contact, recent travel out of [facility] CXR showed: No acute consolidations. EKG: Normal sinus rhythm. Head CT: Normal CT. Brain MRI: Mild confluent T2 hyperintensities on T2 and flair imaging in the periventricular white matter b/l, no mas effect or restricted diffusion. Echo: LVEF 60-65% Present on Admission - Present on Admission Any Indicators Present on Admission: No Review of Systems - Constitutional Constitutional: Other (negative) - EENT Eyes: Requires Corrective Lenses Ears: Other (negative) Nose/Mouth/Throat: Other (negative) - Cardiovascular Cardiovascular: Chest Pain, Radiating Pain - Respiratory Respiratory: Other (negative) - Gastrointestinal Gastrointestinal: Abdominal Pain, Heartburn, Nausea - Genitourinary Genitourinary: Other (negative) - Musculoskeletal Musculoskeletal: Back Pain - Integumentary Integumentary: Other (negative) - Neurological Neurological: Other (negative) - Psychiatric Psychiatric: Other (negative) - Endocrine Endocrine: Other (negative) - Hematologic/Lymphatic Hematologic: Other (negative) Past Patient History - Infectious Disease Hx of Infectious Diseases: None - Past Medical History & Family History Past Medical History?: Yes Pertinent Family History: Unknown - Past Social History Smoking Status: Current Some Days Smoker Chewing Tobacco Use: No Cigar Use: No Alcohol: None Drugs: Denies Home Situation {Lives}: Alone - CARDIAC Hx Cardiac Disorders: Yes Hx Hypertension: Yes - PULMONARY Hx Respiratory Disorders: Yes Hx Asthma: Yes - NEUROLOGICAL Hx Neurological Disorder: Yes Hx Seizures: Yes - HEENT Hx HEENT Problems: No - RENAL Hx Chronic Kidney Disease: No - ENDOCRINE/METABOLIC Hx Endocrine Disorders: Yes - HEMATOLOGICAL/ONCOLOGICAL Hx Blood Disorders: Yes Hx Blood Transfusions: Yes - INTEGUMENTARY Hx Dermatological Problems: No - MUSCULOSKELETAL/RHEUMATOLOGICAL Hx Musculoskeletal Disorders: Yes Hx Falls: Yes - GASTROINTESTINAL Hx Gastrointestinal Disorders: No - GENITOURINARY/GYNECOLOGICAL Hx Genitourinary Disorders: No - PSYCHIATRIC Hx Psychophysiologic Disorder: Yes Hx Anxiety: Yes - SURGICAL HISTORY Hx Surgeries: Yes Hx Coronary Stent: Yes - ANESTHESIA Hx Anesthesia: Yes Hx Anesthesia Reactions: No Hx Malignant Hyperthermia: No Meds Home Medications: Home Medication List Medication Instructions Recorded Confirmed Type Aspirin [Aspirin Chewable] 81 mg PO DAILY #30 chew 10/20/17 Rx Clopidogrel [Plavix] 75 mg PO DAILY #30 tab 10/20/17 Rx Levothyroxine Sodium [Levothroid] 137 mcg PO DAILY@0630 #30 tab 10/20/17 Rx Metoprolol Tartrate [Lopressor] 25 mg PO Q12 #60 tab 10/20/17 Rx Allergies/Adverse Reactions: Allergies Allergy/AdvReac Type Severity Reaction Status Date / Time iodine Allergy DIZZINESS Verified 10/16/17 11:54 Penicillins Allergy RASH Verified 10/16/17 11:54 Physical Exam - Constitutional Appears: No Acute Distress - Head Exam Head Exam: NORMAL INSPECTION - Eye Exam Eye Exam: PERRL - ENT Exam ENT Exam: Normal Exam - Neck Exam Neck exam: Positive for: Normal Inspection - Respiratory Exam Respiratory Exam: NORMAL BREATHING PATTERN - Cardiovascular Exam Cardiovascular Exam: REGULAR RHYTHM - GI/Abdominal Exam GI & Abdominal Exam: Normal Bowel Sounds, Soft. absent: Distended, Tenderness - Extremities Exam Extremities exam: Positive for: normal inspection - Back Exam Back exam: NORMAL INSPECTION - Neurological Exam Neurological exam: Alert, Oriented x3 Additional comments: Follows commands - Psychiatric Exam Psychiatric exam: Normal Mood - Skin Skin Exam: Warm Results - Vital Signs Recent Vital Signs: Last Vital Signs Temp 98.2 F 10/17/17 12:25 Pulse 65 10/17/17 12:25 Resp 18 10/17/17 12:25 BP 149/77 10/17/17 12:25 Pulse Ox 99 10/17/17 12:25 reviewed Kelly - Labs Result Diagrams: 10/20/17 04:25 10/20/17 04:25 Labs: Laboratory Results - last 24 hr 10/16/17 10/16/17 10/16/17 17:25 19:10 19:35 WBC RBC Hgb Hct MCV MCH MCHC RDW Plt Count Sodium Potassium Chloride Carbon Dioxide Anion Gap BUN Creatinine Est GFR ( Amer) Est GFR (Non-Af Amer) POC Glucose (mg/dL) 135 H Random Glucose Lactic Acid Calcium Magnesium Total Bilirubin AST ALT Alkaline Phosphatase Troponin I 1.1000 H* Total Protein Albumin Globulin Albumin/Globulin Ratio Amylase Lipase Thyroxine (T4) TSH 3rd Generation Prolactin 22.8 H Urine Opiates Screen Urine Methadone Screen Ur Barbiturates Screen Ur Phencyclidine Scrn Ur Amphetamines Screen U Benzodiazepines Scrn U Oth Cocaine Metabols U Cannabinoids Screen Alcohol, Quantitative < 10 10/16/17 10/17/17 10/17/17 21:21 05:45 06:14 WBC RBC Hgb Hct MCV MCH MCHC RDW Plt Count Sodium Potassium Chloride Carbon Dioxide Anion Gap BUN Creatinine Est GFR ( Amer) Est GFR (Non-Af Amer) POC Glucose (mg/dL) 154 H 294 H Random Glucose Lactic Acid 0.7 Calcium Magnesium Total Bilirubin AST ALT Alkaline Phosphatase Troponin I Total Protein Albumin Globulin Albumin/Globulin Ratio Amylase Lipase Thyroxine (T4) TSH 3rd Generation Prolactin Urine Opiates Screen Urine Methadone Screen Ur Barbiturates Screen Ur Phencyclidine Scrn Ur Amphetamines Screen U Benzodiazepines Scrn U Oth Cocaine Metabols U Cannabinoids Screen Alcohol, Quantitative 10/17/17 10/17/17 10/17/17 06:45 06:45 09:06 WBC 7.7 RBC 4.07 Hgb 12.5 Hct 37.2 MCV 91.5 MCH 30.6 MCHC 33.5 RDW 14.6 H Plt Count 239 Sodium 139 Potassium 4.6 Chloride 97 L Carbon Dioxide 30 Anion Gap 17 BUN 13 Creatinine 0.6 L Est GFR ( Amer) > 60 Est GFR (Non-Af Amer) > 60 POC Glucose (mg/dL) Random Glucose 348 H Lactic Acid Calcium 10.2 Magnesium 1.8 Total Bilirubin 0.9 AST 56 H D ALT 31 Alkaline Phosphatase 94 Troponin I 7.4200 H* Total Protein 7.9 Albumin 4.2 Globulin 3.7 Albumin/Globulin Ratio 1.1 Amylase 44 Lipase 17 L Thyroxine (T4) 7.95 TSH 3rd Generation 18.80 H Prolactin Urine Opiates Screen Negative Urine Methadone Screen Negative Ur Barbiturates Screen Negative Ur Phencyclidine Scrn Negative Ur Amphetamines Screen Negative U Benzodiazepines Scrn Negative U Oth Cocaine Metabols Negative U Cannabinoids Screen Negative Alcohol, Quantitative 10/17/17 11:10 WBC RBC Hgb Hct MCV MCH MCHC RDW Plt Count Sodium Potassium Chloride Carbon Dioxide Anion Gap BUN Creatinine Est GFR ( Amer) Est GFR (Non-Af Amer) POC Glucose (mg/dL) 383 H Random Glucose Lactic Acid Calcium Magnesium Total Bilirubin AST ALT Alkaline Phosphatase Troponin I Total Protein Albumin Globulin Albumin/Globulin Ratio Amylase Lipase Thyroxine (T4) TSH 3rd Generation Prolactin Urine Opiates Screen Urine Methadone Screen Ur Barbiturates Screen Ur Phencyclidine Scrn Ur Amphetamines Screen U Benzodiazepines Scrn U Oth Cocaine Metabols U Cannabinoids Screen Alcohol, Quantitative reviewed J.P. - EKG Data EKG comments: reviewed J.P. - Impressions Impression: Echo: Reviewed J.P. - Imaging and Cardiology Chest x-ray Status: Report reviewed by me (Kelly) CT scan - head Status: Report reviewed by me (Kelly) MRI - head Status: Report reviewed by me (Kelly) Assessment & Plan (1) NSTEMI (non-ST elevated myocardial infarction) Status: Acute (2) Chest pain Assessment and Plan: NSTMI Status: Acute Priority: High (3) CAD (coronary artery disease) Assessment and Plan: Stent Status: Chronic Priority: High (4) Abdominal pain Assessment and Plan: Related to NSTMI Status: Acute Priority: High (5) Seizure Status: Acute Priority: High (6) HTN (hypertension) Status: Acute Priority: High (7) Diabetes mellitus Status: Chronic Priority: High (8) Hypothyroidism Status: Chronic Priority: Medium (9) Medical non-compliance Status: Chronic Priority: High - Assessment and Plan (Free Text) Plan: Discussed with [employer] financial planning consultant , Patient to have Cardiac Cath on Thursday it Patient agrees to take Plavix and ASA. Discussed with Patient, She agrees to take Plavix and ASA, She is refusing Lovenox , for possible Cardiac Cath on Thursday. Cardiology, Neurology and Psychiatric consult appreciated , no Psychiatric disease, Patient's blood sugar fluctuating , She wants use only her out Patient Insulin. Endocrinology consult. - Date & Time Date: 10/17/17 Time: 13:00
[2017-10-17 15:32] LABS: SQUAMOUS EPITHIAL 1 /hpf (0-5); URINE BILIRUBIN NEGATIVE (NEGATIVE); URINE BLOOD NEGATIVE (NEGATIVE); URINE CLARITY CLEAR (Clear); URINE COLOR YELLOW (YELLOW); URINE GLUCOSE (UA) >=500 mg/dL (Normal); URINE LEUKOCYTE ESTERASE NEG Leu/uL (Negative); URINE PROTEIN NEGATIVE (NEGATIVE); URINE UROBILINOGEN 0.2-1.0 mg/dL (0.2-1.0)
[2017-10-18] MEDS: Levothyroxine 125 MCG TAB PO SCH ×2 (06:56→06:58)
[2017-10-18] MEDS: Insulin Lispro (humaLOG) 100 Units/ml Inj SC SCH ×2 (07:00→12:28)
[2017-10-18] MEDS ORDERED: NOVOLIN N SC SCH (08:00)
[2017-10-18] MEDS ORDERED: INSULIN REGULAR SC SCH (08:00)
[2017-10-18 08:33] LABS: INR 1.1 (0.9-1.2); PROTHROMBIN TIME 11.9 Seconds (9.8-13.1)
[2017-10-18] MEDS: Enoxaparin 80 mg Syringe SC SCH ×2 (10:21→22:36)
[2017-10-18] MEDS: Cholecalciferol 1,000 INTLU TAB PO SCH (10:24)
[2017-10-18] MEDS ORDERED: NOVOLIN R SC ONE (12:00)
[2017-10-18] MEDS ORDERED: Insulin Regular 100 units/ml SC SCH (16:30)
--- NOTE | 2017-10-18 17:59 | US ---
PROCEDURE: Duplex ultrasound of the carotid and vertebral arteries. HISTORY: Chest pain COMPARISON: None available. TECHNIQUE: Grayscale and duplex Doppler evaluation of the cervical carotid and vertebral arteries were performed. The common carotid, carotid bifurcations and cervical ICA and proximal ECA were evaluated. The vertebral arteries were evaluated for gross patency and direction. FINDINGS: RIGHT CAROTID ARTERIES: Common Carotid Artery: Intimal thickening is present Maximal flow velocity of 78.1 cm/s. Carotid Bifurcation: Normal. Internal Carotid Artery:Heterogeneous plaque formation. Maximal flow velocity of 98.4 cm/s. External Carotid Artery (proximal branches): Normal. Maximal flow velocity of 138.7 cm/s. ICA/CCA Ratio: 1.3 LEFT CAROTID ARTERIES: Common Carotid Artery: Intimal thickening is present Maximal flow velocity of 90.3 cm/s. Carotid Bifurcation: Normal. Internal Carotid Artery:Heterogeneous plaque formation. Maximal flow velocity of 11.9 cm/s. External Carotid Artery (proximal branches): Normal. Maximal flow velocity of 104.6 cm/s. ICA/CCA Ratio: 1.2 VERTEBRAL ARTERIES: Right Vertebral Artery: Patent. Antegrade flow. Left Vertebral Artery: Patent. Antegrade flow. OTHER FINDINGS: None. IMPRESSION: Right ICA degree of stenosis: Less than 50% Left ICA degree of stenosis: Less than 50% Reference Internal Carotid Artery (ICA) Peak Systolic Velocity (PSV) for above: 1. Less than 50% stenosis less than 125 cm/s peak systolic velocity 2. 50-69% stenosis 125-230cm/s peak systolic velocity 3. Greater than 70% but less than near occlusion greater than 230 cm/s peak systolic velocity
--- NOTE | 2017-10-18 19:43 | CP.PCM.PN ---
Subjective - Date & Time of Evaluation Date of Evaluation: 10/18/17 Time of Evaluation: 19:00 - Subjective Subjective: F/U NSTEMI Pt awake, no A/D, no chest pain. Objective - Vital Signs/Intake and Output Vital Signs (last 24 hours): Temp Pulse Resp BP Pulse Ox 98.4 F 79 20 180/64 H 100 10/18/17 19:24 10/18/17 19:24 10/18/17 19:24 10/18/17 19:24 10/18/17 19:24 - Medications Medications: Current Medications Aspirin (Aspirin Chewable) 81 mg PO DAILY [facility] Last Admin: 10/18/17 10:25 Dose: Not Given Bismuth Subsalicylate (Pepto Bismol) 524 mg PO Q1 PRN PRN Reason: Heartburn Last Admin: 10/16/17 19:30 Dose: 524 mg Cholecalciferol (Vitamin D) 2,000 intlu PO DAILY [facility] Last Admin: 10/18/17 10:24 Dose: 2,000 intlu Clopidogrel Bisulfate (Plavix) 75 mg PO DAILY [facility] Last Admin: 10/18/17 10:25 Dose: Not Given Enoxaparin Sodium (Lovenox) 70 mg SC Q12 [facility] PRN Reason: Protocol Last Admin: 10/18/17 10:21 Dose: Not Given Famotidine (Pepcid) 40 mg PO DAILY [facility] Last Admin: 10/18/17 10:24 Dose: 40 mg Home Med (Patient's Own Medication) 25 unit SC BRK [facility] Last Admin: 10/18/17 08:00 Dose: Not Given Home Med (Patient's Own Medication) 5 unit SC BRK [facility] Last Admin: 10/18/17 08:00 Dose: Not Given Home Med (Patient's Own Medication) 0 unit SC ACHS [facility] PRN Reason: Protocol Sodium Chloride (Sodium Chloride 0.45%) 1,000 mls @ 125 mls/hr IV .Q8H [facility] Stop: 10/19/17 16:09 Insulin Human NPH (Humulin N) 30 units SC HS [facility] Insulin Human NPH (Humulin N) 20 units SC ACB [facility] Insulin Human Regular (Humulin R) 14 units SC ACB [facility] Insulin Human Regular (Humulin R) 10 units SC ACD [facility] Insulin Human Regular (Humulin R) 0 units SC ACHS [facility] Levothyroxine Sodium (Synthroid) 125 mcg PO DAILY@0630 [facility] Last Admin: 10/18/17 06:58 Dose: Not Given Meclizine HCl (Antivert) 25 mg PO DAILY PRN PRN Reason: Dizziness Metoprolol Tartrate (Lopressor) 25 mg PO Q12 [facility] Last Admin: 10/18/17 10:24 Dose: 25 mg Nitroglycerin (Nitrostat Sl Tab) 0.4 mg SL Q5M PRN PRN Reason: Other Last Admin: 10/16/17 22:04 Dose: 0.4 mg - Labs Labs: 10/17/17 06:45 10/17/17 06:45 PT 11.9 Seconds (9.8-13.1) 10/18/17 07:00 INR 1.1 (0.9-1.2) 10/18/17 07:00 APTT 32.0 Seconds (25.6-37.1) 10/18/17 07:00 - Constitutional Appears: No Acute Distress - Head Exam Head Exam: NORMAL INSPECTION - Eye Exam Eye Exam: PERRL - ENT Exam ENT Exam: Normal Exam - Neck Exam Neck Exam: Normal Inspection - Respiratory Exam Respiratory Exam: NORMAL BREATHING PATTERN - Cardiovascular Exam Cardiovascular Exam: REGULAR RHYTHM - GI/Abdominal Exam GI & Abdominal Exam: Soft, Normal Bowel Sounds - Extremities Exam Extremities Exam: Normal Inspection - Back Exam Back Exam: NORMAL INSPECTION - Neurological Exam Neurological Exam: Alert, Oriented x3 Additional comments: Follows commands. - Psychiatric Exam Psychiatric exam: Normal Mood - Skin Skin Exam: Warm Assessment and Plan (1) NSTEMI (non-ST elevated myocardial infarction) Status: Acute (2) Chest pain Status: Acute (3) CAD (coronary artery disease) Status: Chronic (4) Abdominal pain Status: Acute (5) Seizure Status: Acute (6) HTN (hypertension) Status: Acute (7) Diabetes mellitus Status: Chronic (8) Hypothyroidism Status: Chronic (9) Medical non-compliance Status: Chronic - Assessment and Plan (Free Text) Plan: For Cardiac Cath tomorrow, continue current Tx.
[2017-10-18] MEDS: Insulin Regular 100 units/ml SC SCH (22:31)
[2017-10-18] MEDS: Insulin NPH Human 100 Units/ml Inj SC SCH (22:34)
[2017-10-18] MEDS: Sodium Chloride 0.45% 1,000 ML IV SCH (22:37)
[2017-10-19 00:19] VITALS: RESP 18
--- NOTE | 2017-10-19 03:02 | CON ---
ENDOCRINOLOGY CONSULTATION DATE: LOCATION: Room 407. HISTORY OF PRESENT ILLNESS: This is a 67-year-old female with known history of type 2 insulin-requiring diabetes presenting here with substernal chest pain and currently undergoing cardiac workup at this time for acute coronary syndrome and is also being referred for diabetic evaluation because of persistent hyperglycemic accelerations as noted thereof. PAST MEDICAL HISTORY: As mentioned above, history of type 2 insulin-requiring diabetes on a combination of NPH given as 25 units every morning and regular insulin given as 5 units at breakfast time and 2 units at dinner time. 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 History of diabetic retinopathy and polyneuropathy with also coronary artery disease and previous coronary artery stent placements. FAMILY HISTORY: Positive for hypertension and diabetes. SOCIAL HISTORY: The patient has supportive family. No known substance use. REVIEW OF SYSTEMS: Admits to generalized body weakness with easy fatigability and tiredness and suboptimal energy level. Also admits to dizziness and lightheadedness, worse in the last 2-3 days prior to admission. Moreover, admits to sudden onset of substernal chest pain with radiation to the entire left precordial the area and associated with progressive shortness of breath initially on exertion and then at rest. Her oral intake has been variable with nausea, dyspepsia and vague upper abdominal pains. Also admits to marked polyuria, nocturia and polydipsia with lower extremity paresthesias, especially nocturnally. PHYSICAL EXAMINATION GENERAL: This is an average built female in no apparent distress. VITAL SIGNS: Blood pressure of 140/80, pulse of 70 beats per minute regular, temperature 98, respirations 20, height is 5 feet and 1 inches and weight is 156 pounds. HEENT: Head normocephalic. Eyes anicteric with pink conjunctivae. Funduscopy not possible at this time. Ears, nose and throat otherwise normal. NECK: Supple. Thyroid gland is normal in size. No carotid bruits or cervical adenopathy. CARDIOPULMONARY: Some adynamic precordium. S1 and S2 is rapid and regular. LUNGS: Clear to auscultation. ABDOMEN: Flat and soft with positive bowel sounds. EXTREMITIES: No peripheral edema. Pulses are +2 bilaterally. LABORATORY DATA: Chemistry showed a BUN of 13, sodium 139, potassium 4.6, chloride 97, CO2 of 30, glucose 348 and creatinine 0.6. Her glucose levels have ranged today from 383-464 and 287 mg/dL. Her A1c is 9.6% which is elevated and indicative of suboptimal metabolic control of her diabetic condition even prior to this admission. Her troponin is 7.420. ASSESSMENT: This is a 67-year-old female with uncontrolled and decompensated type 2 insulin-requiring diabetes with with marked hyperglycemic accelerations related to the intercurrent suboptimal insulin therapy on the background of very poor adherence and compliance to the insulin regimen as noted thereof. She also has diabetic microvascular complications of retinopathy and polyneuropathy with diabetic macrovascular complications of coronary artery disease with previous coronary artery stent placement and underlying peripheral arterial disease and vasculopathy. PLAN OF MANAGEMENT: As discussed with the patient and staff, we will modify her current insulin regimen to actual preference of insulin medications and she has opted to go for the same combination of regular and NPH insulin as given at home. So we will discontinue the Humalog coverage scale as ordered here and also the Humalog fixed dose as noted. We will change her over to Humulin regular insulin given as 14 units before breakfast and 10 units before dinner to start today. We will also modify the coverage scale using regular insulin as ordered. Moreover, we will also add NPH given as 30 units subcu at bedtime daily to start tonight. We will modify the coverage scale to hypoglycemia and detailed orders been given. We will also repeat the thyroid studies and adjust her levothyroxine dose accordingly. We will obtain serial chemistries and supplement accordingly needed. Sonam Lozano MD
[2017-10-19 06:32] LABS: ALB/GLOB RATIO 1.2 (1.0-2.1); ALBUMIN 4.1 g/dL (3.5-5.0); ALT/SGPT 31 U/L (9-52); AST/SGOT 37 U/L (14-36); BLOOD UREA NITROGEN 16 mg/dl (7-17); CALCIUM 10.2 mg/dL (8.4-10.2); GFR AFRICAN-AMERICAN > 60; GFR NON-AFRICAN AMERICAN > 60
--- NOTE | 2017-10-19 13:48 | CP.PCM.PN ---
Subjective - Date & Time of Evaluation Date of Evaluation: 10/19/17 Time of Evaluation: 13:46 - Subjective Subjective: PT DOING WELL POST CATH. Objective - Vital Signs/Intake and Output Vital Signs (last 24 hours): Temp Pulse Resp BP Pulse Ox 97.8 F 70 18 134/69 99 10/19/17 05:38 10/19/17 05:38 10/19/17 05:38 10/19/17 05:38 10/19/17 05:38 - Medications Medications: Current Medications Aspirin (Aspirin Chewable) 81 mg PO DAILY [facility] Last Admin: 10/18/17 10:25 Dose: Not Given Bismuth Subsalicylate (Pepto Bismol) 524 mg PO Q1 PRN PRN Reason: Heartburn Last Admin: 10/16/17 19:30 Dose: 524 mg Cholecalciferol (Vitamin D) 2,000 intlu PO DAILY [facility] Last Admin: 10/18/17 10:24 Dose: 2,000 intlu Clopidogrel Bisulfate (Plavix) 75 mg PO DAILY [facility] Last Admin: 10/18/17 10:25 Dose: Not Given Enoxaparin Sodium (Lovenox) 70 mg SC Q12 [facility] PRN Reason: Protocol Last Admin: 10/18/17 22:36 Dose: Not Given Famotidine (Pepcid) 40 mg PO DAILY [facility] Last Admin: 10/18/17 10:24 Dose: 40 mg Home Med (Patient's Own Medication) 25 unit SC BRK [facility] Last Admin: 10/18/17 08:00 Dose: Not Given Home Med (Patient's Own Medication) 5 unit SC BRK [facility] Last Admin: 10/18/17 08:00 Dose: Not Given Home Med (Patient's Own Medication) 0 unit SC ACHS [facility] PRN Reason: Protocol Last Admin: 10/18/17 22:53 Dose: 1 unit Sodium Chloride (Sodium Chloride 0.45%) 1,000 mls @ 125 mls/hr IV .Q8H [facility] Stop: 10/19/17 16:09 Last Admin: 10/18/17 22:37 Dose: Not Given Insulin Human NPH (Humulin N) 30 units SC HS [facility] Last Admin: 10/18/17 22:34 Dose: Not Given Insulin Human NPH (Humulin N) 20 units SC ACB [facility] Insulin Human Regular (Humulin R) 14 units SC ACB [facility] Insulin Human Regular (Humulin R) 10 units SC ACD [facility] Insulin Human Regular (Humulin R) 0 units SC ACHS [facility] Last Admin: 10/18/17 22:31 Dose: 4 units Levothyroxine Sodium (Levothroid) 137 mcg PO DAILY@0630 [facility] Last Admin: 10/19/17 06:26 Dose: 137 mcg Meclizine HCl (Antivert) 25 mg PO DAILY PRN PRN Reason: Dizziness Metoprolol Tartrate (Lopressor) 25 mg PO Q12 [facility] Last Admin: 10/18/17 22:31 Dose: 25 mg Nitroglycerin (Nitrostat Sl Tab) 0.4 mg SL Q5M PRN PRN Reason: Other Last Admin: 10/16/17 22:04 Dose: 0.4 mg - Labs Labs: 10/17/17 06:45 10/19/17 04:20 PT 11.9 Seconds (9.8-13.1) 10/18/17 07:00 INR 1.1 (0.9-1.2) 10/18/17 07:00 APTT 32.0 Seconds (25.6-37.1) 10/18/17 07:00 - Constitutional Appears: Well - Head Exam Head Exam: ATRAUMATIC, NORMAL INSPECTION, NORMOCEPHALIC - Eye Exam Eye Exam: EOMI, Normal appearance, PERRL. absent: Conjunctival injection, Nystagmus, Periorbital swelling, Periorbital tenderness, Scleral icterus Pupil Exam: NORMAL ACCOMODATION, PERRL - ENT Exam ENT Exam: Mucous Membranes Moist, Normal Exam. absent: Mucous Membranes Dry, Normal External Ear Exam, Normal Oropharynx, TM's Normal Bilaterally - Neck Exam Neck Exam: Full ROM, Normal Inspection. absent: Lymphadenopathy - Respiratory Exam Respiratory Exam: Clear to Ausculation Bilateral, NORMAL BREATHING PATTERN. absent: Accessory Muscle Use, Chest Wall Tenderness, Decreased Breath Sounds, Prolonged Expiratory Phase, Rales, Rhonchi, Wheezes, Respiratory Distress, Stridor - Cardiovascular Exam Cardiovascular Exam: REGULAR RHYTHM, +S1, +S2, Murmur. absent: Bradycardia, Tachycardia, Clicks, Diastolic murmur, Gallop, Irregular Rhythm, JVD, RRR, Rubs , +S4 - GI/Abdominal Exam GI & Abdominal Exam: Soft, Normal Bowel Sounds. absent: Bruit, Distended, Firm , Guarding, Rigid, Tenderness, Diminished Bowel Sounds, Hernia, Hyperactive Bowel Sounds, Hypoactive Bowel Sounds, Organomegaly, Pulsatile Mass, Rebound, Mass - Rectal Exam Rectal Exam: Deferred - Extremities Exam Extremities Exam: Full ROM, Normal Capillary Refill, Normal Inspection. absent : Calf Tenderness, Joint Swelling, Pedal Edema, Tenderness - Back Exam Back Exam: NORMAL INSPECTION. absent: CVA tenderness (L), CVA tenderness (R), Full ROM, muscle spasm, paraspinal tenderness, rash noted, tenderness, vertebral tenderness - Neurological Exam Neurological Exam: Alert, Awake, CN II-XII Intact, Normal Gait, Oriented x3. absent: Abnormal Gait, Altered, Motor Sensory Deficit, Reflexes Normal - Psychiatric Exam Psychiatric exam: Normal Affect, Normal Mood. absent: Agitated, Anxious, Depressed, Flat Affect, Homicidal Ideation, Manic, Suicidal Ideation - Skin Skin Exam: Dry, Intact, Normal Color, Warm. absent: Abrasion, Cyanosis, Diaphoretic, Erythema, Mottled, Pallor, Pallor, Petechiae, Rash, Urticaria, Vesicles Assessment and Plan (1) Abdominal pain Status: Acute (2) HTN (hypertension) Status: Acute (3) Chest pain Status: Acute (4) CAD (coronary artery disease) Status: Chronic (5) Diabetes mellitus Status: Chronic (6) NSTEMI (non-ST elevated myocardial infarction) Status: Acute (7) Medical non-compliance Status: Chronic - Assessment and Plan (Free Text) Plan: PT WITH MULTIVESSEL DISEASE. CULPRIT LESION LIKELY MID RCA. PT SHOULD STAY ON DUAL ANTIPLTS. IF SHE PROVES THAT SHE CAN TOLERATE THEM X 1 MONTH AND AGREES TO 1YR OF DUAL ANTIPLT THEN WE CAN CONSIDER PCI. MONITOR UNTIL AM. RECHECK TROP
[2017-10-19] MEDS: Insulin Regular 100 units/ml SC SCH ×3 (16:15→21:40)
[2017-10-19] MEDS: Insulin NPH Human 100 Units/ml Inj SC SCH ×2 (16:16→21:41)
[2017-10-19] MEDS: Enoxaparin 80 mg Syringe SC SCH ×2 (16:18→21:50)
[2017-10-19] MEDS: Cholecalciferol 1,000 INTLU TAB PO SCH (16:20)
[2017-10-19] MEDS: Sodium Chloride 0.45% 1,000 ML IV SCH (16:20)
--- NOTE | 2017-10-19 16:33 | CP.PCM.CON ---
History of Present Illness - History of Present Illness History of Present Illness: The patient is a 67-year-old woman with a past medical history of epilepsy as a child, CAD (s/p 3 stents), who had chest pain, and went to [facility] cardiac cath. The stents are patent. A few days ago, the patient was witnessed having a seizure. She refused EEG and does not want to be on AEDs. Review of Systems - Review of Systems All systems: reviewed and no additional remarkable complaints except Past Patient History - Infectious Disease Hx of Infectious Diseases: None - Past Medical History & Family History Past Medical History?: Yes - Past Social History Smoking Status: Current Some Days Smoker Chewing Tobacco Use: No Cigar Use: No Alcohol: None Drugs: Denies Home Situation {Lives}: Alone - CARDIAC Hx Cardiac Disorders: Yes Hx Hypertension: Yes - PULMONARY Hx Respiratory Disorders: Yes Hx Asthma: Yes - NEUROLOGICAL Hx Neurological Disorder: Yes Hx Seizures: Yes - HEENT Hx HEENT Problems: No - RENAL Hx Chronic Kidney Disease: No - ENDOCRINE/METABOLIC Hx Endocrine Disorders: Yes - HEMATOLOGICAL/ONCOLOGICAL Hx Blood Disorders: Yes Hx Blood Transfusions: Yes - INTEGUMENTARY Hx Dermatological Problems: No - MUSCULOSKELETAL/RHEUMATOLOGICAL Hx Musculoskeletal Disorders: Yes Hx Falls: Yes - GASTROINTESTINAL Hx Gastrointestinal Disorders: No - GENITOURINARY/GYNECOLOGICAL Hx Genitourinary Disorders: No - PSYCHIATRIC Hx Psychophysiologic Disorder: Yes Hx Anxiety: Yes - SURGICAL HISTORY Hx Surgeries: Yes Hx Coronary Stent: Yes - ANESTHESIA Hx Anesthesia: Yes Hx Anesthesia Reactions: No Hx Malignant Hyperthermia: No Meds Allergies/Adverse Reactions: Allergies Allergy/AdvReac Type Severity Reaction Status Date / Time iodine Allergy DIZZINESS Verified 10/16/17 11:54 Penicillins Allergy RASH Verified 10/16/17 11:54 - Medications Medications: Current Medications Aspirin (Aspirin Chewable) 81 mg PO DAILY [facility] Last Admin: 10/19/17 16:16 Dose: Not Given Bismuth Subsalicylate (Pepto Bismol) 524 mg PO Q1 PRN PRN Reason: Heartburn Last Admin: 10/16/17 19:30 Dose: 524 mg Cholecalciferol (Vitamin D) 2,000 intlu PO DAILY [facility] Last Admin: 10/19/17 16:20 Dose: Not Given Clopidogrel Bisulfate (Plavix) 75 mg PO DAILY [facility] Last Admin: 10/19/17 16:20 Dose: Not Given Enoxaparin Sodium (Lovenox) 70 mg SC Q12 [facility] PRN Reason: Protocol Last Admin: 10/19/17 16:18 Dose: Not Given Famotidine (Pepcid) 40 mg PO DAILY [facility] Last Admin: 10/19/17 16:18 Dose: Not Given Insulin Human NPH (Humulin N) 30 units SC HS [facility] Last Admin: 10/18/17 22:34 Dose: Not Given Insulin Human NPH (Humulin N) 20 units SC ACB [facility] Last Admin: 10/19/17 16:16 Dose: Not Given Insulin Human Regular (Humulin R) 14 units SC ACB [facility] Last Admin: 10/19/17 16:17 Dose: Not Given Insulin Human Regular (Humulin R) 10 units SC ACD [facility] Last Admin: 10/19/17 16:17 Dose: Not Given Insulin Human Regular (Humulin R) 0 units SC ACHS [facility] Last Admin: 10/19/17 16:15 Dose: Not Given Levothyroxine Sodium (Levothroid) 137 mcg PO DAILY@0630 [facility] Last Admin: 10/19/17 06:26 Dose: 137 mcg Meclizine HCl (Antivert) 25 mg PO DAILY PRN PRN Reason: Dizziness Metoprolol Tartrate (Lopressor) 25 mg PO Q12 [facility] Last Admin: 10/19/17 16:17 Dose: Not Given Nitroglycerin (Nitrostat Sl Tab) 0.4 mg SL Q5M PRN PRN Reason: Other Last Admin: 10/16/17 22:04 Dose: 0.4 mg Physical Exam - Neurological Exam Neurological exam: Alert, CN II-XII Intact, Normal Gait, Oriented x3, Reflexes Normal Results - Vital Signs Recent Vital Signs: Last Vital Signs Temp 97.7 F 10/19/17 16:11 Pulse 92 H 10/19/17 16:11 Resp 18 10/19/17 16:11 BP 151/62 H 10/19/17 16:11 Pulse Ox 98 10/19/17 16:11 - Labs Result Diagrams: 10/17/17 06:45 10/19/17 04:20 Labs: Laboratory Results - last 24 hr 10/18/17 10/18/17 10/19/17 16:52 21:08 00:00 Sodium Potassium Chloride Carbon Dioxide Anion Gap BUN Creatinine Est GFR ( Amer) Est GFR (Non-Af Amer) POC Glucose (mg/dL) 268 H 390 H 231 H Random Glucose Calcium Total Bilirubin AST ALT Alkaline Phosphatase Total Protein Albumin Globulin Albumin/Globulin Ratio 10/19/17 10/19/17 04:20 05:46 Sodium 140 Potassium 4.3 Chloride 99 Carbon Dioxide 29 Anion Gap 16 BUN 16 Creatinine 0.6 L Est GFR ( Amer) > 60 Est GFR (Non-Af Amer) > 60 POC Glucose (mg/dL) 130 H Random Glucose 141 H Calcium 10.2 Total Bilirubin 0.6 AST 37 H D ALT 31 Alkaline Phosphatase 100 Total Protein 7.6 Albumin 4.1 Globulin 3.5 Albumin/Globulin Ratio 1.2 Assessment & Plan (1) Seizure Assessment and Plan: The patient is non-compliant with medications and refuses further testing. She was informed that she is not allowed to drive according to the laws in [place]. She should follow up with outpatient neurology. No further recommendations. Status: Acute Priority: High
--- NOTE | 2017-10-19 16:33 | CP.PCM.CON ---
History of Present Illness - History of Present Illness History of Present Illness: 67 year old female with PMHx of DM, CAD s/p 3 stents, hypothyroidism, and vertigo presents with substernal chest pain starting yesterday morning. The chest pain was described as burning and radiated across the chest and to the back, it has since resolved since she came to the hospital yesterday. Neurology consulted for remote history of seizure. Patient states she has had one seizure at age 14 with no recurrence that she is aware of. Patient denies headache, dizziness, nausea, vomiting, and any focal weakness or numbness. 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 absent: Chest Pain at Rest, Leg Edema, Rapid Heart Rate - Respiratory Respiratory: absent: Cough, Wheezing, Chest Congestion - Gastrointestinal Gastrointestinal: absent: Abdominal Pain, Diarrhea - Genitourinary Genitourinary: absent: Dysuria - Neurological Neurological: absent: Abnormal Gait, Abnormal Movements, Confusion, Dizziness, Numbness, Focal Weakness, Frequent Falls, Headaches, Loss of Vision, Memory Loss - Psychiatric Psychiatric: absent: As Per HPI Past Patient History - Infectious Disease Hx of Infectious Diseases: None - Past Medical History & Family History Past Medical History?: Yes - Past Social History Smoking Status: Current Some Days Smoker Chewing Tobacco Use: No Cigar Use: No Alcohol: None Drugs: Denies - CARDIAC Hx Cardiac Disorders: Yes - PULMONARY Hx Asthma: Yes - NEUROLOGICAL Hx Seizures: Yes - HEENT Hx HEENT Problems: No - RENAL Hx Chronic Kidney Disease: No - ENDOCRINE/METABOLIC Hx Endocrine Disorders: Yes - HEMATOLOGICAL/ONCOLOGICAL Hx Blood Transfusions: Yes - INTEGUMENTARY Hx Dermatological Problems: No - MUSCULOSKELETAL/RHEUMATOLOGICAL Hx Falls: Yes - GASTROINTESTINAL Hx Gastrointestinal Disorders: No - GENITOURINARY/GYNECOLOGICAL Hx Genitourinary Disorders: No - PSYCHIATRIC Hx Psychophysiologic Disorder: Yes - SURGICAL HISTORY Hx Coronary Stent: Yes - ANESTHESIA Hx Anesthesia: Yes Hx Anesthesia Reactions: No Hx Malignant Hyperthermia: No Meds Allergies/Adverse Reactions: Allergies Allergy/AdvReac Type Severity Reaction Status Date / Time iodine Allergy DIZZINESS Verified 10/16/17 11:54 Penicillins Allergy RASH Verified 10/16/17 11:54 - Medications Medications: Current Medications Aspirin (Aspirin Chewable) 81 mg PO DAILY [facility] Last Admin: 10/17/17 10:57 Dose: 81 mg Bismuth Subsalicylate (Pepto Bismol) 524 mg PO Q1 PRN PRN Reason: Heartburn Last Admin: 10/16/17 19:30 Dose: 524 mg Cholecalciferol (Vitamin D) 2,000 intlu PO DAILY [facility] Last Admin: 10/17/17 10:58 Dose: Not Given Clopidogrel Bisulfate (Plavix) 75 mg PO DAILY [facility] Last Admin: 10/17/17 10:58 Dose: Not Given Enoxaparin Sodium (Lovenox) 70 mg SC Q12 [facility] PRN Reason: Protocol Last Admin: 10/17/17 10:58 Dose: Not Given Famotidine (Pepcid) 40 mg PO DAILY [facility] Last Admin: 10/17/17 10:58 Dose: Not Given Insulin Human Lispro (Humalog) 0 units SC ACHS [facility] PRN Reason: Protocol Last Admin: 10/17/17 12:05 Dose: 8 units Insulin Human Regular (Humulin R) 2 units SC DIN [facility] Insulin Human Regular (Humulin R) 5 units SC BRK [facility] Last Admin: 10/17/17 08:21 Dose: 5 units Levothyroxine Sodium (Synthroid) 125 mcg PO DAILY@0630 [facility] Last Admin: 10/17/17 08:20 Dose: 125 mcg Meclizine HCl (Antivert) 25 mg PO DAILY PRN PRN Reason: Dizziness Metoprolol Tartrate (Lopressor) 25 mg PO Q12 [facility] Last Admin: 10/17/17 10:57 Dose: Not Given Nitroglycerin (Nitrostat Sl Tab) 0.4 mg SL Q5M PRN PRN Reason: Other Last Admin: 10/16/17 22:04 Dose: 0.4 mg Physical Exam - Constitutional Appears: Well, No Acute Distress - Head Exam Head Exam: NORMAL INSPECTION, NORMOCEPHALIC - Eye Exam Eye Exam: EOMI, PERRL - ENT Exam ENT Exam: Mucous Membranes Moist - Respiratory Exam Respiratory Exam: NORMAL BREATHING PATTERN - Cardiovascular Exam Cardiovascular Exam: REGULAR RHYTHM, +S1, +S2 - Neurological Exam Additional comments: Awake, Alert and oriented x3. Speech fluent. Can name and repeat. CN 2-12 grossly intact. No nystagmus. no facial asymmetry, tongue midline. 5/5 strength all extremities; 2/4 DTR's b/l, no clonus Normal gait. Negative pronator drift; normal finger to nose, normal heel to tai ; normal rapid alternating movements and fine motor skills Results - Vital Signs Recent Vital Signs: Last Vital Signs Temp 98.2 F 10/17/17 12:25 Pulse 65 10/17/17 12:25 Resp 18 10/17/17 12:25 BP 149/77 10/17/17 12:25 Pulse Ox 99 10/17/17 12:25 - Labs Result Diagrams: 10/17/17 06:45 10/19/17 04:20 Labs: Laboratory Results - last 24 hr 10/16/17 10/16/17 10/16/17 13:48 14:41 17:25 WBC RBC Hgb Hct MCV MCH MCHC RDW Plt Count Sodium Potassium Chloride Carbon Dioxide Anion Gap BUN Creatinine Est GFR ( Amer) Est GFR (Non-Af Amer) POC Glucose (mg/dL) 48 L 142 H 135 H Random Glucose Lactic Acid Calcium Magnesium Total Bilirubin AST ALT Alkaline Phosphatase Troponin I Total Protein Albumin Globulin Albumin/Globulin Ratio Amylase Lipase Thyroxine (T4) TSH 3rd Generation Prolactin Urine Opiates Screen Urine Methadone Screen Ur Barbiturates Screen Ur Phencyclidine Scrn Ur Amphetamines Screen U Benzodiazepines Scrn U Oth Cocaine Metabols U Cannabinoids Screen Alcohol, Quantitative 10/16/17 10/16/17 10/16/17 19:10 19:35 21:21 WBC RBC Hgb Hct MCV MCH MCHC RDW Plt Count Sodium Potassium Chloride Carbon Dioxide Anion Gap BUN Creatinine Est GFR ( Amer) Est GFR (Non-Af Amer) POC Glucose (mg/dL) 154 H Random Glucose Lactic Acid Calcium Magnesium Total Bilirubin AST ALT Alkaline Phosphatase Troponin I 1.1000 H* Total Protein Albumin Globulin Albumin/Globulin Ratio Amylase Lipase Thyroxine (T4) TSH 3rd Generation Prolactin 22.8 H Urine Opiates Screen Urine Methadone Screen Ur Barbiturates Screen Ur Phencyclidine Scrn Ur Amphetamines Screen U Benzodiazepines Scrn U Oth Cocaine Metabols U Cannabinoids Screen Alcohol, Quantitative < 10 10/17/17 10/17/17 10/17/17 05:45 06:14 06:45 WBC RBC Hgb Hct MCV MCH MCHC RDW Plt Count Sodium 139 Potassium 4.6 Chloride 97 L Carbon Dioxide 30 Anion Gap 17 BUN 13 Creatinine 0.6 L Est GFR ( Amer) > 60 Est GFR (Non-Af Amer) > 60 POC Glucose (mg/dL) 294 H Random Glucose 348 H Lactic Acid 0.7 Calcium 10.2 Magnesium 1.8 Total Bilirubin 0.9 AST 56 H D ALT 31 Alkaline Phosphatase 94 Troponin I 7.4200 H* Total Protein 7.9 Albumin 4.2 Globulin 3.7 Albumin/Globulin Ratio 1.1 Amylase 44 Lipase 17 L Thyroxine (T4) 7.95 TSH 3rd Generation 18.80 H Prolactin Urine Opiates Screen Urine Methadone Screen Ur Barbiturates Screen Ur Phencyclidine Scrn Ur Amphetamines Screen U Benzodiazepines Scrn U Oth Cocaine Metabols U Cannabinoids Screen Alcohol, Quantitative 10/17/17 10/17/17 10/17/17 06:45 09:06 11:10 WBC 7.7 RBC 4.07 Hgb 12.5 Hct 37.2 MCV 91.5 MCH 30.6 MCHC 33.5 RDW 14.6 H Plt Count 239 Sodium Potassium Chloride Carbon Dioxide Anion Gap BUN Creatinine Est GFR ( Amer) Est GFR (Non-Af Amer) POC Glucose (mg/dL) 383 H Random Glucose Lactic Acid Calcium Magnesium Total Bilirubin AST ALT Alkaline Phosphatase Troponin I Total Protein Albumin Globulin Albumin/Globulin Ratio Amylase Lipase Thyroxine (T4) TSH 3rd Generation Prolactin Urine Opiates Screen Negative Urine Methadone Screen Negative Ur Barbiturates Screen Negative Ur Phencyclidine Scrn Negative Ur Amphetamines Screen Negative U Benzodiazepines Scrn Negative U Oth Cocaine Metabols Negative U Cannabinoids Screen Negative Alcohol, Quantitative Assessment & Plan - Assessment and Plan (Free Text) Assessment: 67 year old female with PMHx of DM, CAD s/p 3 stents, hypothyroidism, vertigo, and remote history of seizure as a teenager presents with burning substernal chest pain radiating to the back. Neurology consult for evaluation of remote history of seizure. Plan 1. continue antiplatelets as per medice team 2. f/u outpatient EEG
--- NOTE | 2017-10-20 00:14 | PN ---
DATE: ENDOCRINOLOGY PROGRESS NOTE LOCATION: In room 407, bed 2. This is a 67-year-old female with recent uncontrolled type 2 insulin-requiring diabetes, now being followed closely for metabolic management. She continues to have persistent hyperglycemic accelerations as noted overnight. She has been sent to [facility] for cardiac catheterization procedure as noted thereof today. Her glucose levels have ranged from 130-231 and 390 mg/dL. Her A1c is 9.6%. The latest chemistry showed a BUN of 16, sodium 140, potassium 4.3, chloride 99, CO2 of 29, glucose 141 and creatinine 0.6. So at this time, we will continue the same basal and bolus insulin regimen to allow for dose equilibration as she was actually kept n.p.o. and the dose regimen was held this morning as noted. We will continue her Humulin NPH given as 20 units before breakfast and 30 units at bedtime as ordered. We will continue the Humulin regular insulin given as 14 units before breakfast and 10 units before dinner as ordered. We will also continue the modified levothyroxine dose of 137 mcg once daily in the morning as ordered. We will obtain serial chemistries and supplement accordingly as needed. We will follow. Sonam Lozano MD
[2017-10-20 05:53] LABS: HEMOGLOBIN 10.8 g/dL (12.0-16.0); MEAN CELL VOLUME 90.3 fl (81.0-99.0); MEAN CORPUSCULAR HEMOGLOBIN 30.4 pg (27.0-31.0); MEAN CORPUSCULAR HGB CONC 33.7 g/dL (33.0-37.0); RBC 3.54 Mil/uL (3.80-5.20); RED CELL DISTRIBUTION WIDTH 14.2 % (11.5-14.5); WHITE BLOOD COUNT 9.8 K/uL (4.8-10.8)
[2017-10-20 05:56] VITALS: O2SAT 99
[2017-10-20 06:16] LABS: BLOOD UREA NITROGEN 22 mg/dl (7-17); CALCIUM 9.6 mg/dL (8.4-10.2); GFR AFRICAN-AMERICAN > 60; GFR NON-AFRICAN AMERICAN > 60
[2017-10-20 07:57] VITALS: BP 140/70; PULSE 80; TEMP 97.5
[2017-10-20] MEDS: Insulin NPH Human 100 Units/ml Inj SC SCH (08:51)
[2017-10-20] MEDS: Insulin Regular 100 units/ml SC SCH ×2 (08:51→08:52)
[2017-10-20] MEDS: Cholecalciferol 1,000 INTLU TAB PO SCH (08:52)
--- NOTE | 2017-10-21 08:40 | PN ---
DATE: ENDO FOLLOWUP NOTE LOCATION: Room 407. SUBJECTIVE: This is a 67-year-old female with recent uncontrolled type 2 insulin-requiring diabetes presenting here with acute coronary syndrome and underwent cardiac workup and management and is now also being followed closely for metabolic management. Her glycemic levels are fluctuating, but improved and today's glucose levels have ranged from 264 mg/dL to 275 mg/dL. The latest chemistry showed BUN of 22, sodium of 138, potassium of 4.4, chloride of 99, CO2 of 27, glucose of 264, and creatinine of 0.7. Her A1c is elevated at 9.6%. So at this time, we would recommend the same basal and bolus insulin regimen with NPH given as 30 units at bedtime and 20 units before breakfast as ordered. We will continue the regular insulin given as 14 units before breakfast and 10 units before dinner as ordered. We will also continue the low dose regular insulin coverage scale as ordered to obviate hypoglycemia and detailed orders have been given. We will continue her levothyroxine given as 137 mcg once daily because of persistent subclinical hypothyroidism as noted. We will follow and advise accordingly. Sonam Lozano MD
== END 2017-10-20 10:49 | disposition left against medical advice (07) | DRG 282 ==
LOC: H.ER 11:36 → H.ERHOLD 15:13 → H.TEL 17:40 → OBSVTOIN 10-17 15:08
PROVIDERS: ADMIT Internal Medicine Pulmonary Disease; ATTEND Internal Medicine Pulmonary Disease
PROC: 4A023N7 Measurement of Cardiac Sampling and Pressure, Left Heart, Percutaneous Approach (ICD-10-PCS; principal; 2017-10-19)
PROC: B205YZZ Plain Radiography of Left Heart using Other Contrast (ICD-10-PCS; 2017-10-19)
DX: I21.4 Non-ST elevation (NSTEMI) myocardial infarction (principal); E11.42 Type 2 diabetes mellitus with diabetic polyneuropathy; E11.51 Type 2 diabetes mellitus with diabetic peripheral angiopathy without gangrene; E11.319 Type 2 diabetes mellitus with unspecified diabetic retinopathy without macular edema; E11.65 Type 2 diabetes mellitus with hyperglycemia; I11.9 Hypertensive heart disease without heart failure; I25.10 Atherosclerotic heart disease of native coronary artery without angina pectoris; E03.9 Hypothyroidism, unspecified; E78.5 Hyperlipidemia, unspecified; G40.909 Epilepsy, unspecified, not intractable, without status epilepticus; J45.909 Unspecified asthma, uncomplicated; H54.61 Unqualified visual loss, right eye, normal vision left eye; F41.9 Anxiety disorder, unspecified; F17.210 Nicotine dependence, cigarettes, uncomplicated; H91.92 Unspecified hearing loss, left ear; Z91.14 Patient's other noncompliance with medication regimen; Z91.19 Patient's noncompliance with other medical treatment and regimen; Z95.5 Presence of coronary angioplasty implant and graft; Z96.642 Presence of left artificial hip joint; Z79.4 Long term (current) use of insulin; Z79.02 Long term (current) use of antithrombotics/antiplatelets; Z88.0 Allergy status to penicillin; Z91.041 Radiographic dye allergy status

== ENCOUNTER 2017-11-11 17:22 | Emergency (ER) | payer MEDICARE, OTHER ==
[2017-11-11 17:22] VITALS: BMI 29.5
[2017-11-11 17:32] VITALS: TEMP 97.9
--- NOTE | 2017-11-11 18:19 | ED PDOC ---
HPI: Chest Pain Chief Complaint (Provider): "sania been feeling weak recently, iván worse today" <Dany Ann - Last Filed: 11/11/17 18:38> <Kristine Mckinney - Last Filed: 11/11/17 21:40> Time Seen by Provider: 11/11/17 17:47 Chief Complaint (Nursing): Chest Pain Additional Complaint(s): 67 y/o female, hx of IDDM, CAD (s/p cardiac cath 10/19/2017), Hypothyroid presents via EMS for evaluation of weakness. Pt reports she has been feeling weak for the past several weeks for noticed an acute worsening today. She reports she checked her sugar and it was 46 around 3pm today. She felt a "thumping" in her chest during the episode but no chest pain assoicated with it. Described it as a "pulse like sensation". She ate several cookies and relaxed. She reports b/l hand tingling that is chronic but thinks its been worse recently. No pre-syncopal symptoms. No common cardiac symptoms during episode. No difficulty speaking. No asymetric weakness/tingling. Reports symptoms are exacerbated with "plavix usage". Alleviated when she eats or drinks things with high sugar. No other complaints/concerns. Denies any recent URI symptoms, no urinary tract symptoms. Denies cough, CP/SOB/palpitations, diaphoresis. PMD: Cher (Dany Ann) Supervising Attending Note - Supervising Attending Note The Documented history was done by the: Physician Market Research Consultant, Attending Physician The documented physical exam was done by the: Physician Market Research Consultant, Attending Physician The documented procedures were done by the: Physician Market Research Consultant, Attending Physician - Attestation: I have personally seen and examined this patient.: Yes I have fully participated in the care of the patient.: Yes I have reviewed all pertinent clinical information: Yes <Kristine Mckinney - Last Filed: 11/11/17 21:40> Past Medical History Reviewed: Historical Data, Nursing Documentation, Vital Signs - Medical History PMH: Anxiety, Asthma, CAD (Hx of cardiac stent placement), Depression, Diabetes , HTN, Hypothyroidism, Seizures Denies: Chronic Kidney Disease - Surgical History Surgical History: Coronary Stent - Family History Family History: States: Unknown Family Hx - Immunization History Hx Tetanus Toxoid Vaccination: No Hx Influenza Vaccination: No Hx Pneumococcal Vaccination: No <Dany Ann - Last Filed: 11/11/17 18:38> Reviewed: Historical Data <Kristine Mckinney - Last Filed: 11/11/17 21:40> Vital Signs: Last Vital Signs Temp 97.9 F 11/11/17 17:28 Pulse 70 11/11/17 20:18 Resp 16 11/11/17 20:18 BP 160/69 H 11/11/17 20:18 Pulse Ox 100 11/11/17 21:06 - Home Medications Home Medications: Ambulatory Orders Medication Instructions Recorded Insulin Human Regular [Novolin R] 2 unit SC DIN 08/29/16 Insulin Human Regular [Novolin R] 5 unit SC BRK 08/29/16 Cholecalciferol (Vitamin D3) 2,000 unit PO DAILY 10/16/17 [Vitamin D3] Insulin Human NPH [Humulin N] 25 unit SC QAM 10/16/17 Meclizine [Meclizine*] 25 mg PO DAILY PRN 10/16/17 Aspirin [Aspirin Chewable] 81 mg PO DAILY #30 chew 10/20/17 Clopidogrel [Plavix] 75 mg PO DAILY #30 tab 10/20/17 Levothyroxine Sodium [Levothroid] 137 mcg PO DAILY@0630 #30 tab 10/20/17 Metoprolol Tartrate [Lopressor] 25 mg PO Q12 #60 tab 10/20/17 - Allergies Allergies/Adverse Reactions: Allergies Allergy/AdvReac Type Severity Reaction Status Date / Time iodine Allergy DIZZINESS Verified 11/11/17 17:28 Penicillins Allergy RASH Verified 11/11/17 17:28 Review of Systems Constitutional: Negative for: Fever, Chills, Sweats, Weakness, Malaise Eyes: Negative for: Vision Change Cardiovascular: Negative for: Chest Pain, Palpitations, Orthopnea, Paroxysmal Noc. Dyspnea, Edema, Light Headedness Respiratory: Negative for: Cough, Shortness of Breath, Hemoptysis, SOB with Exertion, Pleuritic Pain, Wheezing Gastrointestinal: Negative for: Nausea, Vomiting, Abdominal Pain, Diarrhea, Constipation Genitourinary Female: Negative for: Dysuria, Frequency, Incontinence, Hematuria Skin: Negative for: Rash, Bruising Neurological: Positive for: Weakness, Numbness (b/l hands ). Negative for: Incoordination, Change in Speech, Confusion, Altered Mental Status, Headache, Dizziness Psych: Negative for: Anxiety, Depression <Dany Ann - Last Filed: 11/11/17 18:38> ROS Statement: Except As Marked, All Systems Reviewed And Found Negative <Kristine Mckinney - Last Filed: 11/11/17 21:40> Physical Exam - Reviewed Nursing Documentation Reviewed: Yes Vital Signs Reviewed: Yes - Physical Exam Appears: Positive for: Well, Non-toxic, No Acute Distress Head Exam: Positive for: ATRAUMATIC, NORMOCEPHALIC Skin: Positive for: Normal Color, Warm, Dry. Negative for: Diaphoresis, Pallor Eye Exam: Positive for: EOMI, PERRL, Other (cataracts). Negative for: Conjunctival injection Neck: Positive for: Normal, Painless ROM, Supple Cardiovascular/Chest: Positive for: Regular Rate, Rhythm, Chest Non Tender. Negative for: Edema, Gallop, JVD, Murmur, Bradycardia, Tachycardia, Friction Rub , Irregularly Irregular Respiratory: Positive for: Normal Breath Sounds. Negative for: Decreased Breath Sounds, Accessory Muscle Use, Crackles, Rales, Rhonchi, Stridor, Wheezing , Respiratory Distress Pulses-Dorsalis Pedis (L): 2+ Pulses-Dorsalis Pedis (R): 2+ Pulses-Radial (L): 2+ Pulses-Radial (R): 2+ Gastrointestinal/Abdominal: Positive for: Normal Exam, Bowel Sounds (normal ), Soft. Negative for: Tenderness, Organomegaly, Mass, Distended, Guarding, Rebound Back: Negative for: L CVA Tenderness, R CVA Tenderness, Vertebral Tenderness Extremity: Positive for: Capillary Refill (<2s). 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 Negative for: Motor/Sensory Deficits, Aphasia, Facial Droop <Dany Ann - Last Filed: 11/11/17 18:38> - ECG O2 Sat by Pulse Oximetry: 97 <Dany Ann - Last Filed: 11/11/17 18:38> - Laboratory Results Result Diagrams: 11/11/17 18:35 11/11/17 18:35 <Kristine Mckinney - Last Filed: 11/11/17 21:40> - Progress ED Course And Treament: hypoglycemia/dehydration/generalized weakness/diabetic neuropathy CBC CMP UA Troponin EKG Accucheck (Dany Ann) Disposition <Dany Ann - Last Filed: 11/11/17 18:38> - Patient ED Disposition Is Patient to be Admitted: Transfer of Care - Disposition Disposition: Transfer of Care Disposition Time: 07:00 Patient Signed Over To: Martin Ardon <Kristine Mckinney - Last Filed: 11/11/17 21:40> - Clinical Impression Clinical Impression: Hypoglycemia - Disposition Referrals: [facility] [Outside] [facility] [Outside] Arie Ayon MD [Staff Provider] - Condition: STABLE Instructions: Low Blood Sugar, Adult (DC) Forms: [facility] (Djiboutian)
[2017-11-11 18:46] LABS: HEMOGLOBIN 11.6 g/dL (12.0-16.0); MEAN CELL VOLUME 90.7 fl (81.0-99.0); MEAN CORPUSCULAR HEMOGLOBIN 30.6 pg (27.0-31.0); MEAN CORPUSCULAR HGB CONC 33.7 g/dL (33.0-37.0); RBC 3.8 Mil/uL (3.80-5.20); RED CELL DISTRIBUTION WIDTH 14.7 % (11.5-14.5); WHITE BLOOD COUNT 8.4 K/uL (4.8-10.8)
[2017-11-11 20:18] VITALS: BP 160/69; PULSE 70; RESP 16; O2SAT 100
[2017-11-11 20:28] LABS: SQUAMOUS EPITHIAL 1 /hpf (0-5); URINE BILIRUBIN NEGATIVE (NEGATIVE); URINE BLOOD NEGATIVE (NEGATIVE); URINE CLARITY CLEAR (Clear); URINE COLOR STRAW (YELLOW); URINE GLUCOSE (UA) NEG (Normal); URINE LEUKOCYTE ESTERASE NEG Leu/uL (Negative); URINE PROTEIN NEGATIVE (NEGATIVE); URINE UROBILINOGEN 0.2-1.0 mg/dL (0.2-1.0)
[2017-11-11 20:42] LABS: ALB/GLOB RATIO 1.2 (1.0-2.1); ALBUMIN 4.1 g/dL (3.5-5.0); ALT/SGPT 27 U/L (9-52); AST/SGOT 38 U/L (14-36); BLOOD UREA NITROGEN 16 mg/dl (7-17); GFR AFRICAN-AMERICAN > 60; GFR NON-AFRICAN AMERICAN > 60
--- NOTE | 2017-11-11 21:06 | ED PDOC ---
- Laboratory Results Result Diagrams: 11/11/17 18:35 11/11/17 18:35 - ECG O2 Sat by Pulse Oximetry: 100 Pulse Ox Interpretation: Normal Medical Decision Making Medical Decision MakinPM Patient was seen at bedside, all dressed and pacing room requesting to be discharged, states she felt better after drinking juice. States she has an appointment with entry level account executive at the end of the month, advised patient to also followup in 1 - 2 days with PMD, will give referral to clinic, [facility] , and collections rep med doctor. Strongly advised patient not to d/c any of her medications without consent of physician first. Patient stable, ambulatory, well appearing upon discharge. Disposition - Clinical Impression Clinical Impression: Hypoglycemia - POA Present On Arrival: None - Disposition Referrals: Arie Ayon MD [Staff Provider] - [facility] [Outside] [facility] [Outside] Disposition: Routine/Home Disposition Time: 21:05 Condition: IMPROVED Instructions: Low Blood Sugar, Adult (DC) Forms: [facility] (Wolof)
--- NOTE | 2017-11-12 09:31 | RAD ---
HISTORY: Chest pain COMPARISON: Comparison made with chest radiograph 10/16/2017 FINDINGS: LUNGS: Poor inspiration with low lung volumes, mild crowded bronchovascular markings and mild bibasilar atelectasis. PLEURA: No significant pleural effusion identified, no pneumothorax apparent. CARDIOVASCULAR: Cardiomegaly. OSSEOUS STRUCTURES: No significant abnormalities. VISUALIZED UPPER ABDOMEN: Normal. OTHER FINDINGS: None. IMPRESSION: Poor inspiration with low lung volumes, mild crowded bronchovascular markings and mild bibasilar atelectasis.
== END 2017-11-11 21:13 | disposition home or self-care (01) ==
LOC: H.ER 17:22
DX: E11.9 Type 2 diabetes mellitus without complications (principal); Z86.59 Personal history of other mental and behavioral disorders; I25.10 Atherosclerotic heart disease of native coronary artery without angina pectoris; Z95.5 Presence of coronary angioplasty implant and graft; E03.9 Hypothyroidism, unspecified; J45.909 Unspecified asthma, uncomplicated; Z79.02 Long term (current) use of antithrombotics/antiplatelets; Z79.4 Long term (current) use of insulin; Z79.82 Long term (current) use of aspirin; Z88.0 Allergy status to penicillin

== ENCOUNTER 2017-11-22 15:31 | Inpatient (IN) | payer MEDICARE, OTHER ==
[2017-11-22 15:31] VITALS: BMI 29.5
[2017-11-22] MEDS ORDERED: Sodium Chloride 0.9% 1,000 ML IV STA (15:55)
--- NOTE | 2017-11-22 16:00 | ED PDOC ---
HPI: Chest Pain Time Seen by Provider: 11/22/17 15:42 Chief Complaint (Nursing): Chest Pain Chief Complaint (Provider): Chest Pain History Per: Patient History/Exam Limitations: no limitations Additional Complaint(s): 67 year old female with a past medical history of a coronary stent, seizures ( not on medications), diabetes, and thyroid disease who presents to the emergency department via ambulance after patient called today, 11/22/2017, because she was experiencing generalized weakness, left hand weakness (not new; intermittent), and a left-sided pressure to the chest region. Patient states when she woke up this morning and walked to the kitchen, chest pressure started. Reports she then took either half of a Plavix or 3 aspirin that relieved symptoms and decided to take a shower (patient appears to be confused on what she took earlier). Patient says after she took a shower and walked into the kitchen again, symptoms returned and decided to call the ambulance. On field , EMS gave patient 1 aspirin and 1 nitroglycerin. Denies fever or chills. No dyspnea, headaches, dizziness, neck pain, numbness, tingles. No chest pain currently. Of note, patient has a coronary stent and will be receiving a new one soon. PMD: Dr. Ari Kwon MD Past Medical History Reviewed: Historical Data, Nursing Documentation, Vital Signs Vital Signs: Last Vital Signs Temp 98.1 F 11/22/17 15:33 Pulse 78 11/22/17 15:33 Resp 16 11/22/17 15:33 BP 142/68 11/22/17 15:33 Pulse Ox 99 11/22/17 18:41 - Medical History PMH: Anxiety, Asthma, CAD (Hx of cardiac stent placement), Depression, Diabetes , HTN, Hypothyroidism, Seizures (known seizure and does not take any meds for it ) Denies: Chronic Kidney Disease - Surgical History Surgical History: Coronary Stent - Family History Family History: States: Unknown Family Hx - Social History Current smoker - smoking cessation education provided: No Alcohol: None Drugs: Denies - Immunization History Hx Tetanus Toxoid Vaccination: No Hx Influenza Vaccination: No Hx Pneumococcal Vaccination: No - Home Medications Home Medications: Ambulatory Orders Medication Instructions Recorded Insulin Human Regular [Novolin R] 2 unit SC DIN 08/29/16 Insulin Human Regular [Novolin R] 5 unit SC BRK 08/29/16 Cholecalciferol (Vitamin D3) 2,000 unit PO DAILY 10/16/17 [Vitamin D3] Insulin Human NPH [Humulin N] 25 unit SC QAM 10/16/17 Aspirin [Aspirin Chewable] 81 mg PO DAILY #30 chew 10/20/17 Clopidogrel [Plavix] 75 mg PO DAILY #30 tab 10/20/17 Levothyroxine Sodium [Levothroid] 137 mcg PO DAILY@0630 #30 tab 10/20/17 Metoprolol Tartrate [Lopressor] 25 mg PO Q12 #60 tab 10/20/17 - Allergies Allergies/Adverse Reactions: Allergies Allergy/AdvReac Type Severity Reaction Status Date / Time iodine Allergy DIZZINESS Verified 11/22/17 15:54 Penicillins Allergy RASH Verified 11/22/17 15:54 Review of Systems ROS Statement: Except As Marked, All Systems Reviewed And Found Negative (As per HPI, otherwise negative) Constitutional: Positive for: Weakness (Generalized). Negative for: Fever, Chills Cardiovascular: Positive for: Chest Pain (Left-sided pressure to the chest region) Neurological: Positive for: Weakness (Left hand (not new)) Physical Exam - Reviewed Nursing Documentation Reviewed: Yes Vital Signs Reviewed: Yes - Physical Exam Appears: Positive for: No Acute Distress Head Exam: Positive for: NORMAL INSPECTION Skin: Positive for: Normal Color, Warm, Dry Eye Exam: Positive for: Normal appearance ENT: Positive for: Normal ENT Inspection Cardiovascular/Chest: Positive for: Regular Rate, Rhythm. Negative for: Murmur Respiratory: Positive for: Normal Breath Sounds. Negative for: Accessory Muscle Use, Respiratory Distress Gastrointestinal/Abdominal: Positive for: Normal Exam, Soft. Negative for: Tenderness Back: Positive for: Normal Inspection. Negative for: L CVA Tenderness, R CVA Tenderness Extremity: Positive for: Normal ROM. Negative for: Tenderness, Pedal Edema Neurologic/Psych: Positive for: Alert, health care facility administrator II-XII (intact), Oriented (x3), Gait (Steady). Negative for: Motor/Sensory Deficits, Aphasia, Facial Droop - Laboratory Results Result Diagrams: 11/22/17 16:07 11/22/17 16:07 Interpretation Of Abn Labs: no acute - ECG ECG: Positive for: Interpreted By Me, Viewed By Me ECG Rhythm: Positive for: Normal QRS, Normal ST Segment, Sinus Rhythm O2 Sat by Pulse Oximetry: 99 (RA) Pulse Ox Interpretation: Normal - Radiology X-Ray: Read By Radiologist X-Ray Interpretation: No Acute Disease - CT Scan/US ct Other Rad Studies (CT/US): Read By Radiologist Other Rad Interpretation: no acute - Progress ED Course And Treament: 1853: Stable. AAOx3. Son at bedside. Pt. has capacity to make decisions. Pt. with no pain, tolerated po. Ambulated with no issues. Has CAD hx. Refuses to stay for obs and further management. Aware of possible or decreased functioning from chest pain, heart attack, or other etiologies. Son agrees with pt. decision and pt. will AMA. Has cardiology, Dr. Araya, appointment soon and will fu with him. Advised to see him right away. Medical Decision Making Medical Decision Making: Time: 1554 Initial impression: Chest pain Initial plan: --EKG --CMP --Magnesium --Phosphorous --Troponin I --CBC w. diff --PTT & Prothrombin --Chest Portable --Sodium Chloride 1L IV --AccuCheck --Head CT --Reevaluation --Patient had free episode in ER with decreased responsiveness for 5 seconds and clenching hand. Patient then acknowledged that she has a history of seizures and thinks this episode was related to a seizure because it was similar to previous experiences. States she does not taking any medications because she only has seizures about 1 to 2 times a year. No stool or urine incontinence. Time: 1642 --Chest x-ray FINDINGS: LUNGS: No active pulmonary disease. PLEURA: No significant pleural effusion identified, no pneumothorax apparent. CARDIOVASCULAR: Normal. OSSEOUS STRUCTURES: No significant abnormalities. VISUALIZED UPPER ABDOMEN: Normal. OTHER FINDINGS: None. IMPRESSION: No active disease. Time: 1730 --Head CT FINDINGS: HEMORRHAGE: No intracranial hemorrhage. BRAIN: No mass effect or edema. No atrophy or chronic microvascular ischemic changes. VENTRICLES: Unremarkable. No hydrocephalus. CALVARIUM: Unremarkable. PARANASAL SINUSES: Unremarkable as visualized. No significant inflammatory changes. MASTOID AIR CELLS: Unremarkable as visualized. No inflammatory changes. OTHER FINDINGS: None. IMPRESSION: Normal CT of the Head. Scribe Attestation: Documented by Amparo Chan, acting as a scribe for Estuardo Oates MD Provider Scribe Attestation: All medical record entries made by the Scribe were at my direction and personally dictated by me. I have reviewed the chart and agree that the record accurately reflects my personal performance of the history, physical exam, medical decision making, and the department course for this patient. I have also personally directed, reviewed, and agree with the discharge instructions and disposition. Disposition - Clinical Impression Clinical Impression: Chest pain - Patient ED Disposition Is Patient to be Admitted: Yes Counseled Patient/Family Regarding: Studies Performed, Diagnosis - Disposition Referrals: [facility] [place] [Outside] (See the clinic Thursday without fail.) Disposition: Against Medical Advice Disposition Time: 18:39 Condition: FAIR Additional Instructions: You are going against medical advice. You are aware of possible or decreased functioning from chest pain, heart attack, or other similar issues. Come back right away for further evaluation and admission/monitoring. At the least, see your doctor and geospatial engineer right away. Va contra consejos mdicos. Usted es consciente de la posible muerte o disminuci n del funcionamiento por dolor de pecho, ataque cardaco u otros problemas similares. Vuelva de inmediato para spike evaluacin adicional y admisin / control. Por lo menos, consulte a caban mdico y cardilogo de inmediato. Instructions: Chest Pain Forms: [facility] (Marshallese) Print Language: IVORIAN
[2017-11-22 16:19] LABS: BASO # 0.1 K/uL (0.0-0.2); EOS # 0.1 K/uL (0.0-0.7); HEMOGLOBIN 11.8 g/dL (12.0-16.0); LYMPH # 1.3 K/uL (1.0-4.3); LYMPH % 17.6 % (20.0-40.0); MEAN CELL VOLUME 90.7 fl (81.0-99.0); MEAN CORPUSCULAR HEMOGLOBIN 30.2 pg (27.0-31.0); MEAN CORPUSCULAR HGB CONC 33.3 g/dL (33.0-37.0); MEAN PLATELET VOLUME 9.4 fl (7.2-11.7); MONO # 0.3 K/uL (0.0-0.8); MONO % 4.2 % (0.0-10.0); NEUT # 5.7 K/uL (1.8-7.0); NEUT % 76.2 % (50.0-75.0); RBC 3.89 Mil/uL (3.80-5.20); RED CELL DISTRIBUTION WIDTH 14.7 % (11.5-14.5); WHITE BLOOD COUNT 7.5 K/uL (4.8-10.8)
--- NOTE | 2017-11-22 16:45 | RAD ---
HISTORY: chest pain COMPARISON: No prior. FINDINGS: LUNGS: No active pulmonary disease. PLEURA: No significant pleural effusion identified, no pneumothorax apparent. CARDIOVASCULAR: Normal. OSSEOUS STRUCTURES: No significant abnormalities. VISUALIZED UPPER ABDOMEN: Normal. OTHER FINDINGS: None. IMPRESSION: No active disease.
[2017-11-22 16:49] LABS: ALB/GLOB RATIO 1.2 (1.0-2.1); ALT/SGPT 32 U/L (9-52); AST/SGOT 24 U/L (14-36); BLOOD UREA NITROGEN 15 mg/dl (7-17); GFR AFRICAN-AMERICAN > 60; GFR NON-AFRICAN AMERICAN > 60
[2017-11-22 16:50] LABS: INR 1.1 (0.9-1.2); PARTIAL THROMBOPLASTIN TIME 32.6 Seconds (25.6-37.1)
--- NOTE | 2017-11-22 17:33 | CT ---
PROCEDURE: CT HEAD WITHOUT CONTRAST. HISTORY: headache COMPARISON: None available. TECHNIQUE: Axial computed tomography images were obtained through the head/brain without intravenous contrast. Radiation dose: Total exam DLP = mGy-cm. This CT exam was performed using one or more of the following dose reduction techniques: Automated exposure control, adjustment of the mA and/or kV according to patient size, and/or use of iterative reconstruction technique. FINDINGS: HEMORRHAGE: No intracranial hemorrhage. BRAIN: No mass effect or edema. No atrophy or chronic microvascular ischemic changes. VENTRICLES: Unremarkable. No hydrocephalus. CALVARIUM: Unremarkable. PARANASAL SINUSES: Unremarkable as visualized. No significant inflammatory changes. MASTOID AIR CELLS: Unremarkable as visualized. No inflammatory changes. OTHER FINDINGS: None. IMPRESSION: Normal CT of the Head.
--- NOTE | 2017-11-22 20:17 | CP.PCM.HP ---
History of Present Illness - History of Present Illness History of Present Illness: 67 yo female with history of DM2 and CAD came in because of left sided chest pain radiating to her left arm and hand associated with generalized weakness. Patient was admitted a month ago because of the same problem and was diagnosed with NSTEMI. She was transferred to [facility] where cardiac cath was done by Dr Zamudio which revealed Double Vessel CAD. She was given ASA and Plavix plus Metoprolol and was advised to have stent once she become compliant with the dual antiplatelet therapy. Patient however complained of feeling worse with Plavix and refused to continue taking them. Present on Admission - Present on Admission Any Indicators Present on Admission: No History of DVT/PE: No History of Uncontrolled Diabetes: No Urinary Catheter: No Decubitus Ulcer Present: No Review of Systems - Review of Systems All systems: reviewed and no additional remarkable complaints except (aside from those mentioned above, 12 point system review were negative by me) Past Patient History - Infectious Disease Hx of Infectious Diseases: None - Past Medical History & Family History Past Medical History?: Yes - Past Social History Smoking Status: Never Smoked Alcohol: None Drugs: Denies - CARDIAC Hx Heart Attack: Yes (NSTEMI) Hx Hypertension: Yes Other/Comment: NSTEMI a month ago - PULMONARY Hx Asthma: Yes - NEUROLOGICAL Hx Seizures: Yes (known seizure and does not take any meds for it) - HEENT Hx HEENT Problems: No - RENAL Hx Chronic Kidney Disease: No - ENDOCRINE/METABOLIC Hx Diabetes Mellitus Type 2: Yes Hx Hypothyroidism: Yes - HEMATOLOGICAL/ONCOLOGICAL Hx Blood Disorders: Yes Hx Blood Transfusions: Yes - INTEGUMENTARY Hx Dermatological Problems: No - MUSCULOSKELETAL/RHEUMATOLOGICAL Hx Musculoskeletal Disorders: Yes Hx Falls: Yes - GASTROINTESTINAL Hx Gastrointestinal Disorders: No - GENITOURINARY/GYNECOLOGICAL Hx Genitourinary Disorders: No - PSYCHIATRIC Hx Anxiety: Yes Hx Depression: Yes - SURGICAL HISTORY Hx Coronary Stent: Yes - ANESTHESIA Hx Anesthesia: Yes Hx Anesthesia Reactions: No Hx Malignant Hyperthermia: No Meds Allergies/Adverse Reactions: Allergies Allergy/AdvReac Type Severity Reaction Status Date / Time iodine Allergy DIZZINESS Verified 11/22/17 15:54 Penicillins Allergy RASH Verified 11/22/17 15:54 Physical Exam - Constitutional Appears: No Acute Distress - Head Exam Head Exam: ATRAUMATIC - Eye Exam Eye Exam: absent: Scleral icterus - ENT Exam ENT Exam: Mucous Membranes Moist - Neck Exam Neck exam: Negative for: Meningismus - Respiratory Exam Respiratory Exam: absent: Rales, Rhonchi, Wheezes, Respiratory Distress - Cardiovascular Exam Cardiovascular Exam: REGULAR RHYTHM, +S1, +S2 - GI/Abdominal Exam GI & Abdominal Exam: Soft. absent: Tenderness - Rectal Exam Rectal Exam: Deferred - Extremities Exam Extremities exam: Positive for: normal inspection - Back Exam Back exam: absent: tenderness - Neurological Exam Neurological exam: Alert, Oriented x3 - Psychiatric Exam Psychiatric exam: Normal Affect - Skin Skin Exam: Dry, Intact Results - Vital Signs Recent Vital Signs: Last Vital Signs Temp 98.1 F 11/22/17 15:33 Pulse 78 11/22/17 15:33 Resp 16 11/22/17 15:33 BP 142/68 11/22/17 15:33 Pulse Ox 99 11/22/17 18:56 - Labs Result Diagrams: 11/22/17 16:07 11/22/17 16:07 Labs: Laboratory Results - last 24 hr 11/22/17 11/22/17 11/22/17 15:52 16:07 16:07 WBC 7.5 RBC 3.89 Hgb 11.8 L Hct 35.2 MCV 90.7 MCH 30.2 MCHC 33.3 RDW 14.7 H Plt Count 247 MPV 9.4 Neut % (Auto) 76.2 H Lymph % (Auto) 17.6 L Dyer % (Auto) 4.2 Eos % (Auto) 1.0 Baso % (Auto) 1.0 Neut # (Auto) 5.7 Lymph # (Auto) 1.3 Dyer # (Auto) 0.3 Eos # (Auto) 0.1 Baso # (Auto) 0.1 PT INR APTT Sodium 143 Potassium 4.0 Chloride 104 Carbon Dioxide 25 Anion Gap 18 BUN 15 Creatinine 0.6 L Est GFR ( Amer) > 60 Est GFR (Non-Af Amer) > 60 POC Glucose (mg/dL) 155 H Random Glucose 153 H Calcium 10.0 Phosphorus 3.0 Magnesium 1.9 Total Bilirubin 0.3 AST 24 ALT 32 Alkaline Phosphatase 91 Troponin I < 0.0120 Total Protein 7.4 Albumin 4.0 Globulin 3.4 Albumin/Globulin Ratio 1.2 11/22/17 16:07 WBC RBC Hgb Hct MCV MCH MCHC RDW Plt Count MPV Neut % (Auto) Lymph % (Auto) Dyer % (Auto) Eos % (Auto) Baso % (Auto) Neut # (Auto) Lymph # (Auto) Dyer # (Auto) Eos # (Auto) Baso # (Auto) PT 12.0 INR 1.1 APTT 32.6 Sodium Potassium Chloride Carbon Dioxide Anion Gap BUN Creatinine Est GFR ( Amer) Est GFR (Non-Af Amer) POC Glucose (mg/dL) Random Glucose Calcium Phosphorus Magnesium Total Bilirubin AST ALT Alkaline Phosphatase Troponin I Total Protein Albumin Globulin Albumin/Globulin Ratio Assessment & Plan - Assessment and Plan (Free Text) Assessment: 67 yo female with history of DM2 and CAD came in because of left sided chest pain radiating to her left arm and hand associated with generalized weakness. Patient was admitted a month ago because of the same problem and was diagnosed with NSTEMI. She was transferred to [facility] where cardiac cath was done by Dr Zamudio which revealed Double Vessel CAD. She was given ASA and Plavix plus Metoprolol and was advised to have stent once she become compliant with the dual antiplatelet therapy. Patient however complained of feeling worse with Plavix and refused to continue taking them. 1. Chest Pain serial Troponin and EKG cardiology consult with Dr Zamudio (he did cardiac cath on this patient last month ) NTG SL PRN for chest pain Morphine 2mg IV q 4hrs prn for chest pain continue ASA and Plavix Metoprolol 25mg PO q 12hrs Lipitor 40mg PO HS ECHO 2. DM2 NPH insulin 25 units SC q am Regular Insulin 5 units SC BRK Regular insulin 2 units SC DIN HgA1C, BMP in am 3. DVT prophylaxis Lovenox 40mg SC daily
[2017-11-23 05:38] LABS: BASO # 0.1 K/uL (0.0-0.2); BASO % 1.4 % (0.0-2.0); EOS # 0.1 K/uL (0.0-0.7); EOS % 2.1 % (0.0-4.0); HEMOGLOBIN 11.5 g/dL (12.0-16.0); LYMPH # 1.8 K/uL (1.0-4.3); LYMPH % 26.5 % (20.0-40.0); MEAN CELL VOLUME 91.3 fl (81.0-99.0); MEAN CORPUSCULAR HEMOGLOBIN 30.2 pg (27.0-31.0); MEAN CORPUSCULAR HGB CONC 33.1 g/dL (33.0-37.0); MEAN PLATELET VOLUME 9.7 fl (7.2-11.7); MONO # 0.5 K/uL (0.0-0.8); MONO % 7.3 % (0.0-10.0); NEUT # 4.2 K/uL (1.8-7.0); NEUT % 62.7 % (50.0-75.0); NRBC % 0.1 % (0.0-0.0); RBC 3.81 Mil/uL (3.80-5.20); RED CELL DISTRIBUTION WIDTH 14.9 % (11.5-14.5); WHITE BLOOD COUNT 6.6 K/uL (4.8-10.8)
[2017-11-23 06:01] LABS: BLOOD UREA NITROGEN 12 mg/dl (7-17); CALCIUM 9.7 mg/dL (8.4-10.2); GFR AFRICAN-AMERICAN > 60; GFR NON-AFRICAN AMERICAN > 60; HDL CHOLESTEROL 56 MG/DL (30-70)
[2017-11-23 06:07] LABS: B-TYPE NATRIURETIC PEPTIDE 148 pg/ml (0-900)
[2017-11-23 06:11] LABS: LDL CHOLESTEROL 93 mg/dL (0-129)
[2017-11-23] MEDS ORDERED: Levothyroxine 112 MCG TAB PO SCH (06:30)
[2017-11-23] MEDS: Enoxaparin 40 mg Syringe SC SCH ×2 (08:15)
[2017-11-23] MEDS: Cholecalciferol 1,000 INTLU TAB PO SCH (08:16)
[2017-11-23] MEDS: Insulin Regular 100 units/ml SC SCH ×2 (08:21→17:06)
--- NOTE | 2017-11-23 08:52 | CARD ---
APPROVED REPORT EKG Measurement Heart [id number] MO [id number] <Conclusion> Normal sinus rhythm Low voltage QRS Borderline ECG
[2017-11-23] MEDS ORDERED: Insulin NPH Human 100 Units/ml Inj SC SCH (09:00)
[2017-11-23] MEDS ORDERED: Pantoprazole 40 mg EC Tab PO SCH (09:00)
--- NOTE | 2017-11-23 09:43 | CP.PCM.PN ---
Subjective - Date & Time of Evaluation Date of Evaluation: 11/23/17 Time of Evaluation: 09:00 - Subjective Subjective: Pt denies CP no SOB however complains of slight dizziness after she took the Plavix so she does not want to ever take Plavix again Patient had Cardiac Cath last month w/c showed Double Vessel CAD and was scheduled for outpatient Stenting with Dr Frost however the patient developed chest pain so she called 911 yesterday feels weak no abd pain no N/V no [place] Objective - Vital Signs/Intake and Output Vital Signs (last 24 hours): Temp Pulse Resp BP Pulse Ox 97.2 F L 59 L 18 160/79 H 98 11/23/17 08:06 11/23/17 08:06 11/23/17 08:06 11/23/17 08:06 11/23/17 08:06 - Medications Medications: Current Medications Aspirin (Aspirin Chewable) 81 mg PO DAILY [facility] Last Admin: 11/23/17 08:16 Dose: 81 mg Atorvastatin Calcium (Lipitor) 40 mg PO DAILY [facility] Last Admin: 11/23/17 08:17 Dose: Not Given Cholecalciferol (Vitamin D) 2,000 intlu PO DAILY [facility] Last Admin: 11/23/17 08:16 Dose: 2,000 intlu Clopidogrel Bisulfate (Plavix) 75 mg PO DAILY [facility] Last Admin: 11/23/17 08:16 Dose: Not Given Enoxaparin Sodium (Lovenox) 40 mg SC DAILY [facility] PRN Reason: Protocol Last Admin: 11/23/17 08:15 Dose: Not Given Insulin Human NPH (Humulin N) 25 units SC QAM [facility] Last Admin: 11/23/17 08:22 Dose: 25 units Insulin Human Regular (Humulin R) 2 units SC DIN [facility] Insulin Human Regular (Humulin R) 5 units SC BRK [facility] Last Admin: 11/23/17 08:21 Dose: 5 u Levothyroxine Sodium (Synthroid) 125 mcg PO DAILY@0630 [facility] Metoprolol Tartrate (Lopressor) 25 mg PO Q12 [facility] Last Admin: 11/23/17 00:05 Dose: 25 mg Morphine Sulfate (Morphine) 2 mg IVP Q4 PRN PRN Reason: chest pain Nitroglycerin (Nitrostat Sl Tab) 0.4 mg SL Q5M PRN PRN Reason: chest pain Pantoprazole Sodium (Protonix Ec Tab) 40 mg PO DAILY [facility] Last Admin: 11/23/17 08:17 Dose: 40 mg - Labs Labs: 11/23/17 04:20 11/23/17 04:20 PT 12.0 Seconds (9.8-13.1) 11/22/17 16:07 INR 1.1 (0.9-1.2) 11/22/17 16:07 APTT 32.6 Seconds (25.6-37.1) 11/22/17 16:07 - Constitutional Appears: No Acute Distress - Head Exam Head Exam: NORMAL INSPECTION, NORMOCEPHALIC - Eye Exam Eye Exam: EOMI, Normal appearance Pupil Exam: NORMAL ACCOMODATION - ENT Exam ENT Exam: Mucous Membranes Moist, Normal External Ear Exam - Neck Exam Neck Exam: Full ROM. absent: Meningismus - Respiratory Exam Respiratory Exam: NORMAL BREATHING PATTERN. absent: Rales, Wheezes, Respiratory Distress - Cardiovascular Exam Cardiovascular Exam: REGULAR RHYTHM, +S1, +S2 - GI/Abdominal Exam GI & Abdominal Exam: Soft, Normal Bowel Sounds. absent: Tenderness - Extremities Exam Extremities Exam: Full ROM, Normal Capillary Refill, Normal Inspection. absent : Calf Tenderness, Pedal Edema - Back Exam Back Exam: Full ROM. absent: CVA tenderness (L), CVA tenderness (R) - Neurological Exam Neurological Exam: Alert, Awake, CN II-XII Intact, Oriented x3 Neuro motor strength exam: Left Upper Extremity: 5, Right Upper Extremity: 5, Left Lower Extremity: 5, Right Lower Extremity: 5 - Psychiatric Exam Psychiatric exam: Normal Affect, Normal Mood - Skin Skin Exam: Dry, Normal Color, Warm Assessment and Plan (1) Chest pain Status: Acute (2) CAD (coronary artery disease) Status: Chronic (3) HTN (hypertension) Status: Chronic (4) Hypothyroid Status: Chronic (5) DM type 2 (diabetes mellitus, type 2) Status: Chronic (6) DVT prophylaxis Status: Acute - Assessment and Plan (Free Text) Assessment: 67 y/o lady with hx of CAD s/p Stent x 2 ( done at [facility] in 2011) , Hx of DM , Hypothyroidism, came bec of Chest Pain. She had recent Cardiac Cath done last month showing Double Vessel CAD- was scheduled for Stenting this week however developed sudden Chest Pain. Trop x 3 negative . (1) Chest pain Status: Acute ACS ruled out Pt was scheduled for Outpt Stenting with Dr Frost but developed CP Int Cardiology consult _ Dr Frost - discussed case - plan for PCI in am cont ASA, will change Palvix to Brilinta 90 mg bid start Metoprolol and Losartan cont Immdur (2) CAD (coronary artery disease) xh of Stent to LAD Status: Chronic as above (3) HTN (hypertension) Status: Chronic start Losartan and Metoprolol cont Imdur (4) Hypothyroid Status: Chronic TSH elevated , increase Levothyroxine to 125 mcg daily (5) DM type 2 (diabetes mellitus, type 2) Status: Chronic accucheck pt is on Novolin N 25 units q am and Regular insulin at dinner (6) DVT prophylaxis Status: Acute Lovenox
--- NOTE | 2017-11-23 10:06 | CP.PCM.CON ---
History of Present Illness - History of Present Illness History of Present Illness: Consultation for evaluation of unstable angina and recent NSTEMI with RCA/OM stenosis HPI: Antonia is a 67-year-old female with past medical history significant for hypertension dyslipidemia coronary artery disease status post stenting of left anterior descending and left circumflex coronary artery that was done in [facility] was recently admitted last month with episode of non- ST elevation AL for which she underwent a cardiac catheterization by Dr. Doll which showed obtuse marginal and RCA disease at that time because of noncompliance issues she was managed medically and the plan was to clinically follow her. She now presents back again for symptoms of chest pain pressure- like substernal accompanied with radiation to the left arm and left jaw area and dizziness. I have been consulted for evaluation of revascularization of the RCA and obtuse marginal branch. At baseline she follows with Dr. Waters fairly active activity baseline is limited secondary to exertional chest pain. Review of Systems - Review of Systems Systems not reviewed;Unavailable: Acuity of Condition - Constitutional Constitutional: As Per HPI - EENT Eyes: As Per HPI Ears: As Per HPI Nose/Mouth/Throat: As Per HPI - Breasts Breasts: As Per HPI - Cardiovascular Cardiovascular: As Per HPI - Respiratory Respiratory: As Per HPI - Gastrointestinal Gastrointestinal: As Per HPI - Genitourinary Genitourinary: As Per HPI - Reproductive: Female Reproductive:Female: As Per HPI - Menstruation Menstruation: As Per HPI - Musculoskeletal Musculoskeletal: As Per HPI - Integumentary Integumentary: As Per HPI - Neurological Neurological: As Per HPI - Psychiatric Psychiatric: As Per HPI - Endocrine Endocrine: As Per HPI - Hematologic/Lymphatic Hematologic: As Per HPI Past Patient History - Infectious Disease Hx of Infectious Diseases: None - Past Medical History & Family History Past Medical History?: Yes - Past Social History Smoking Status: Never Smoked - CARDIAC Hx Cardiac Disorders: Yes Hx Heart Attack: Yes (NSTEMI) Hx Hypertension: Yes Other/Comment: NSTEMI a month ago - PULMONARY Hx Respiratory Disorders: Yes Hx Asthma: Yes Hx Pneumonia: Yes - NEUROLOGICAL Hx Neurological Disorder: Yes Hx Seizures: Yes (known seizure and does not take any meds for it) - HEENT Hx HEENT Problems: Yes Hx Deafness: Yes (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) - RENAL Hx Chronic Kidney Disease: No - ENDOCRINE/METABOLIC Hx Endocrine Disorders: Yes Hx Diabetes Mellitus Type 2: Yes Hx Hypothyroidism: Yes - HEMATOLOGICAL/ONCOLOGICAL Hx Blood Disorders: Yes Hx AIDS: No Hx Blood Transfusions: Yes Hx Human Immunodeficiency Virus (HIV): No - INTEGUMENTARY Hx Dermatological Problems: No - MUSCULOSKELETAL/RHEUMATOLOGICAL Hx Musculoskeletal Disorders: Yes Hx Falls: Yes - GASTROINTESTINAL Hx Gastrointestinal Disorders: No - GENITOURINARY/GYNECOLOGICAL Hx Genitourinary Disorders: No - PSYCHIATRIC Hx Psychophysiologic Disorder: Yes Hx Anxiety: Yes Hx Depression: Yes Hx Substance Use: No - SURGICAL HISTORY Hx Surgeries: Yes Hx Coronary Stent: Yes - ANESTHESIA Hx Anesthesia: Yes Hx Anesthesia Reactions: No Hx Malignant Hyperthermia: No Meds Allergies/Adverse Reactions: Allergies Allergy/AdvReac Type Severity Reaction Status Date / Time iodine Allergy DIZZINESS Verified 11/22/17 15:54 Penicillins Allergy RASH Verified 11/22/17 15:54 - Medications Medications: Current Medications Aspirin (Aspirin Chewable) 81 mg PO DAILY [facility] Last Admin: 11/23/17 08:16 Dose: 81 mg Atorvastatin Calcium (Lipitor) 40 mg PO DAILY [facility] Last Admin: 11/23/17 08:17 Dose: Not Given Cholecalciferol (Vitamin D) 2,000 intlu PO DAILY [facility] Last Admin: 11/23/17 08:16 Dose: 2,000 intlu Clopidogrel Bisulfate (Plavix) 75 mg PO DAILY [facility] Last Admin: 11/23/17 08:16 Dose: Not Given Enoxaparin Sodium (Lovenox) 40 mg SC DAILY [facility] PRN Reason: Protocol Last Admin: 11/23/17 08:15 Dose: Not Given Insulin Human NPH (Humulin N) 25 units SC QAM [facility] Last Admin: 11/23/17 08:22 Dose: 25 units Insulin Human Regular (Humulin R) 2 units SC DIN [facility] Insulin Human Regular (Humulin R) 5 units SC BRK [facility] Last Admin: 11/23/17 08:21 Dose: 5 u Levothyroxine Sodium (Synthroid) 125 mcg PO DAILY@0630 [facility] Metoprolol Tartrate (Lopressor) 25 mg PO Q12 [facility] Last Admin: 11/23/17 00:05 Dose: 25 mg Morphine Sulfate (Morphine) 2 mg IVP Q4 PRN PRN Reason: chest pain Nitroglycerin (Nitrostat Sl Tab) 0.4 mg SL Q5M PRN PRN Reason: chest pain Pantoprazole Sodium (Protonix Ec Tab) 40 mg PO DAILY [facility] Last Admin: 11/23/17 08:17 Dose: 40 mg Physical Exam - Constitutional Appears: Well - Head Exam Head Exam: ATRAUMATIC, NORMAL INSPECTION, NORMOCEPHALIC - Eye Exam Eye Exam: EOMI, Normal appearance, PERRL Pupil Exam: NORMAL ACCOMODATION, PERRL - ENT Exam ENT Exam: Mucous Membranes Moist, Normal Exam - Neck Exam Neck exam: Positive for: Normal Inspection - Respiratory Exam Respiratory Exam: Clear to Auscultation Bilateral, NORMAL BREATHING PATTERN - Cardiovascular Exam Cardiovascular Exam: REGULAR RHYTHM, RRR, +S1, +S2 - GI/Abdominal Exam GI & Abdominal Exam: Normal Bowel Sounds, Soft. absent: Tenderness - Extremities Exam Extremities exam: Positive for: normal inspection - Back Exam Back exam: NORMAL INSPECTION - Neurological Exam Neurological exam: Alert, CN II-XII Intact, Normal Gait, Oriented x3, Reflexes Normal - Psychiatric Exam Psychiatric exam: Normal Affect, Normal Mood - Skin Skin Exam: Dry, Intact, Normal Color, Warm Results - Vital Signs Recent Vital Signs: Last Vital Signs Temp 97.2 F L 11/23/17 08:06 Pulse 59 L 11/23/17 08:06 Resp 18 11/23/17 08:06 BP 160/79 H 11/23/17 08:06 Pulse Ox 98 11/23/17 08:06 - Labs Result Diagrams: 11/23/17 04:20 11/23/17 04:20 Labs: Laboratory Results - last 24 hr 11/22/17 11/22/17 11/22/17 15:52 16:07 16:07 WBC 7.5 RBC 3.89 Hgb 11.8 L Hct 35.2 MCV 90.7 MCH 30.2 MCHC 33.3 RDW 14.7 H Plt Count 247 MPV 9.4 Neut % (Auto) 76.2 H Lymph % (Auto) 17.6 L [place] % (Auto) 4.2 Eos % (Auto) 1.0 Baso % (Auto) 1.0 Neut # (Auto) 5.7 Lymph # (Auto) 1.3 [place] # (Auto) 0.3 Eos # (Auto) 0.1 Baso # (Auto) 0.1 PT INR APTT Sodium 143 Potassium 4.0 Chloride 104 Carbon Dioxide 25 Anion Gap 18 BUN 15 Creatinine 0.6 L Est GFR ( Amer) > 60 Est GFR (Non-Af Amer) > 60 POC Glucose (mg/dL) 155 H Random Glucose 153 H Calcium 10.0 Phosphorus 3.0 Magnesium 1.9 Total Bilirubin 0.3 AST 24 ALT 32 Alkaline Phosphatase 91 Troponin I < 0.0120 NT-Pro-B Natriuret Pep Total Protein 7.4 Albumin 4.0 Globulin 3.4 Albumin/Globulin Ratio 1.2 Triglycerides Cholesterol LDL Cholesterol Direct HDL Cholesterol TSH 3rd Generation 11/22/17 11/22/17 11/22/17 16:07 21:36 21:49 WBC RBC Hgb Hct MCV MCH MCHC RDW Plt Count MPV Neut % (Auto) Lymph % (Auto) [place] % (Auto) Eos % (Auto) Baso % (Auto) Neut # (Auto) Lymph # (Auto) [place] # (Auto) Eos # (Auto) Baso # (Auto) PT 12.0 INR 1.1 APTT 32.6 Sodium Potassium Chloride Carbon Dioxide Anion Gap BUN Creatinine Est GFR ( Amer) Est GFR (Non-Af Amer) POC Glucose (mg/dL) 69 81 Random Glucose Calcium Phosphorus Magnesium Total Bilirubin AST ALT Alkaline Phosphatase Troponin I NT-Pro-B Natriuret Pep Total Protein Albumin Globulin Albumin/Globulin Ratio Triglycerides Cholesterol LDL Cholesterol Direct HDL Cholesterol TSH 3rd Generation 11/23/17 11/23/17 11/23/17 00:15 04:20 04:20 WBC 6.6 RBC 3.81 Hgb 11.5 L Hct 34.8 MCV 91.3 MCH 30.2 MCHC 33.1 RDW 14.9 H Plt Count 245 MPV 9.7 Neut % (Auto) 62.7 Lymph % (Auto) 26.5 [place] % (Auto) 7.3 Eos % (Auto) 2.1 Baso % (Auto) 1.4 Neut # (Auto) 4.2 Lymph # (Auto) 1.8 [place] # (Auto) 0.5 Eos # (Auto) 0.1 Baso # (Auto) 0.1 PT INR APTT Sodium 143 Potassium 4.6 Chloride 103 Carbon Dioxide 29 Anion Gap 16 BUN 12 Creatinine 0.6 L Est GFR ( Amer) > 60 Est GFR (Non-Af Amer) > 60 POC Glucose (mg/dL) Random Glucose 221 H Calcium 9.7 Phosphorus Magnesium Total Bilirubin AST ALT Alkaline Phosphatase Troponin I < 0.0120 NT-Pro-B Natriuret Pep 148 Total Protein Albumin Globulin Albumin/Globulin Ratio Triglycerides 156 H D Cholesterol 213 H LDL Cholesterol Direct 93 HDL Cholesterol 56 TSH 3rd Generation 24.20 H 11/23/17 11/23/17 04:20 05:56 WBC RBC Hgb Hct MCV MCH MCHC RDW Plt Count MPV Neut % (Auto) Lymph % (Auto) [place] % (Auto) Eos % (Auto) Baso % (Auto) Neut # (Auto) Lymph # (Auto) [place] # (Auto) Eos # (Auto) Baso # (Auto) PT INR APTT Sodium Potassium Chloride Carbon Dioxide Anion Gap BUN Creatinine Est GFR ( Amer) Est GFR (Non-Af Amer) POC Glucose (mg/dL) 226 H Random Glucose Calcium Phosphorus Magnesium Total Bilirubin AST ALT Alkaline Phosphatase Troponin I < 0.0120 NT-Pro-B Natriuret Pep Total Protein Albumin Globulin Albumin/Globulin Ratio Triglycerides Cholesterol LDL Cholesterol Direct HDL Cholesterol TSH 3rd Generation Assessment & Plan (1) Unstable angina Assessment and Plan: cont asa pt claims to be intolerant to plavix - substitute with ticagrelor 90mg bid cont bb, statins add nitrates chg metoprolol to 100mg po bid and add imdur 30mg po daily add losartan 50mg po daily Status: Acute (2) Chest pain Assessment and Plan: plan for urgent cath and possible PCi of OM and RCA in am at [facility] npo p mn Status: Acute Priority: High (3) Acute weakness Status: Acute (4) HTN (hypertension) Status: Acute Priority: High (5) CAD (coronary artery disease) Status: Chronic Priority: High
[2017-11-23] MEDS ORDERED: Insulin Regular 100 units/ml SC STA ×2 (11:56→11:57)
[2017-11-23] MEDS: Insulin Lispro (humaLOG) 100 Units/ml Inj SC SCH ×2 (17:06→21:12)
[2017-11-23] MEDS: Famotidine 40 MG/5 ML PO SCH (17:07)
[2017-11-24] MEDS: Levothyroxine 125 MCG TAB PO SCH (06:07)
[2017-11-24] MEDS: Insulin Lispro (humaLOG) 100 Units/ml Inj SC SCH ×4 (06:35→22:21)
[2017-11-24] MEDS: Insulin Regular 100 units/ml SC SCH ×2 (08:17→17:58)
[2017-11-24] MEDS: Famotidine 40 MG/5 ML PO SCH (08:18)
[2017-11-24] MEDS: Enoxaparin 40 mg Syringe SC SCH (08:18)
[2017-11-24] MEDS: Cholecalciferol 1,000 INTLU TAB PO SCH (08:18)
--- NOTE | 2017-11-24 11:25 | CARD ---
APPROVED REPORT EXAM: Two-dimensional and M-mode echocardiogram with Doppler and color Doppler. Other Information Quality : AverageRhythm : NSR INDICATION Non STEMI 2D DIMENSIONS IVSd0.95 (0.7-1.1cm)LVDd4.59 (3.9-5.9cm) LVOT Diameter1.89 (1.8-2.4cm)PWd0.78 (0.7-1.1cm) IVSs1.11 (0.8-1.2cm)LVDs3.67 (2.5-4.0cm) FS (%) 20.1 %PWs1.03 (0.8-1.2cm) M-Mode DIMENSIONS Left Atrium (MM)3.47 (2.5-4.0cm)IVSd1.16 (0.7-1.1cm) Aortic Root2.90 (2.2-3.7cm)LVDd4.16 (4.0-5.6cm) Aortic Cusp Exc.1.57 (1.5-2.0cm)PWd1.02 (0.7-1.1cm) IVSs1.08 cmFS (%) 28 % LVDs3.01 (2.0-3.8cm)PWs1.24 cm Mitral Valve MV E Ocmyahnu87.9cm/sMV DECEL [id number] A Kfyxwdqg054.7cm/s MV XXG02egD/A ratio0.9MVA (PHT)3.21cm2 TDI Lateral E' Peak V8.07cm/sMedial E' Peak V7.58cm/sE/Lateral E'11.5 E/Medial E'12.3 Pulmonary Valve PV Peak Amtkxakg17.1cm/s LEFT VENTRICLE The left ventricle is normal size. There is normal left ventricular wall thickness. The left ventricular function is normal. The left ventricular ejection fraction is within the normal range. The Ejection Fraction is 50-55%. There is normal LV segmental wall motion. The left ventricular diastolic function is normal. RIGHT VENTRICLE The right ventricle is normal size. The right ventricular systolic function is normal. ATRIA The left atrium size is normal. The right atrium size is normal. AORTIC VALVE The aortic valve is normal in structure. No aortic regurgitation is present. There is no aortic valvular stenosis. MITRAL VALVE The mitral valve is normal in structure. There is no mitral valve stenosis. Mitral regurgitation is trace. TRICUSPID VALVE The tricuspid valve is normal in structure. There is no tricuspid valve regurgitation noted. There is no tricuspid valve stenosis. PULMONIC VALVE The pulmonary valve is normal in structure. There is no pulmonic valvular regurgitation. GREAT VESSELS The aortic root is normal in size. The IVC is normal in size and collapses >50% with inspiration. PERICARDIAL EFFUSION The pericardium appears normal. <Conclusion> The left ventricle is normal size. The left ventricular function is normal. The left ventricular ejection fraction is within the normal range. The Ejection Fraction is 50-55%. Mitral regurgitation is trace.
--- NOTE | 2017-11-24 16:04 | CP.PCM.PN ---
Subjective - Date & Time of Evaluation Date of Evaluation: 11/24/17 Time of Evaluation: 15:45 - Subjective Subjective: Pt just came back from [facility] - post PCI - stent place on Distal and mid RCA Doing well Pt has issues with medication compliance however agreed to take ASA and Brilinta - had long discussion with pt re: importance of taking Brilinta post PCI and risk of Stent thrombosis if she does not take it. denies CP no SOB no abd pain Objective - Vital Signs/Intake and Output Vital Signs (last 24 hours): Temp Pulse Resp BP Pulse Ox 97.5 F L 61 18 149/74 97 11/24/17 08:35 11/24/17 09:00 11/24/17 08:35 11/24/17 08:35 11/24/17 08:35 - Medications Medications: Current Medications Aspirin (Aspirin Chewable) 81 mg PO DAILY [facility] Last Admin: 11/24/17 08:11 Dose: 81 mg Atorvastatin Calcium (Lipitor) 40 mg PO DAILY [facility] Last Admin: 11/24/17 08:17 Dose: Not Given Cholecalciferol (Vitamin D) 2,000 intlu PO DAILY [facility] Last Admin: 11/24/17 08:18 Dose: Not Given Enoxaparin Sodium (Lovenox) 40 mg SC DAILY [facility] PRN Reason: Protocol Last Admin: 11/24/17 08:18 Dose: Not Given Famotidine (Pepcid) 20 mg PO BID [facility] Last Admin: 11/24/17 13:51 Dose: Not Given Insulin Human Lispro (Humalog) 0 units SC ACHS [facility] PRN Reason: Protocol Last Admin: 11/24/17 13:50 Dose: Not Given Insulin Human NPH (Humulin N) 25 units SC QAM [facility] Last Admin: 11/23/17 08:22 Dose: 25 units Insulin Human Regular (Humulin R) 2 units SC DIN [facility] Last Admin: 11/23/17 17:06 Dose: Not Given Insulin Human Regular (Humulin R) 5 units SC BRK [facility] Last Admin: 11/24/17 08:17 Dose: Not Given Isosorbide Mononitrate (Imdur Er) 30 mg PO DAILY [facility] Last Admin: 11/24/17 08:17 Dose: Not Given Levothyroxine Sodium (Synthroid) 125 mcg PO DAILY@0630 [facility] Last Admin: 11/24/17 06:07 Dose: Not Given Losartan Potassium (Cozaar) 50 mg PO DAILY [facility] Last Admin: 11/24/17 08:16 Dose: Not Given Metoprolol Tartrate (Lopressor) 100 mg PO Q12 [facility] Last Admin: 11/24/17 08:20 Dose: 100 mg Morphine Sulfate (Morphine) 2 mg IVP Q4 PRN PRN Reason: chest pain Nitroglycerin (Nitrostat Sl Tab) 0.4 mg SL Q5M PRN PRN Reason: chest pain Ticagrelor (Brilinta) 90 mg PO BID [facility] Last Admin: 11/24/17 08:12 Dose: Not Given - Labs Labs: 11/23/17 04:20 11/23/17 04:20 PT 12.0 Seconds (9.8-13.1) 11/22/17 16:07 INR 1.1 (0.9-1.2) 11/22/17 16:07 APTT 32.6 Seconds (25.6-37.1) 11/22/17 16:07 - Constitutional Appears: No Acute Distress - Head Exam Head Exam: NORMAL INSPECTION, NORMOCEPHALIC - Eye Exam Eye Exam: EOMI, Normal appearance Pupil Exam: NORMAL ACCOMODATION - ENT Exam ENT Exam: Mucous Membranes Moist, Normal External Ear Exam - Neck Exam Neck Exam: Full ROM. absent: Meningismus - Respiratory Exam Respiratory Exam: NORMAL BREATHING PATTERN. absent: Rales, Wheezes, Respiratory Distress - Cardiovascular Exam Cardiovascular Exam: REGULAR RHYTHM, +S1, +S2 - GI/Abdominal Exam GI & Abdominal Exam: Soft, Normal Bowel Sounds. absent: Tenderness - Extremities Exam Extremities Exam: Full ROM, Normal Capillary Refill, Normal Inspection. absent : Calf Tenderness, Pedal Edema Left wrist ( site of cath insertion) : no hematoma , no bleeding - Back Exam Back Exam: Full ROM. absent: CVA tenderness (L), CVA tenderness (R) - Neurological Exam Neurological Exam: Alert, Awake, CN II-XII Intact, Oriented x3 Neuro motor strength exam: Left Upper Extremity: 5, Right Upper Extremity: 5, Left Lower Extremity: 5, Right Lower Extremity: 5 - Psychiatric Exam Psychiatric exam: Normal Affect, Normal Mood - Skin Skin Exam: Dry, Normal Color, Warm Assessment and Plan (1) Chest pain Status: Acute (2) CAD (coronary artery disease) Status: Chronic (3) HTN (hypertension) Status: Chronic (4) Hypothyroid Status: Chronic (5) DM type 2 (diabetes mellitus, type 2) Status: Chronic (6) DVT prophylaxis Status: Acute - Assessment and Plan (Free Text) Assessment: 67 y/o lady with hx of CAD s/p Stent x 2 ( done at [facility] in 2011) , Hx of DM , Hypothyroidism, noncompliant with her meds , came bec of Chest Pain. She had recent Cardiac Cath done last month showing Double Vessel CAD- according to pt, was scheduled for Stenting this week however developed sudden Chest Pain. Trop x 3 negative . 11/24 : Pt had PCI today : mid and distal RCA stented by Dr Frost - done in [facility] (1) Chest pain Status: Acute ACS ruled out Pt was scheduled for Outpt Stenting with Dr Frost but developed CP Interventional Cardiology consulted- Dr Frost - Stent placed in RCA ( mid and distal) cont ASA, Changed Plavix to Brilinta 90 mg bid cont Metoprolol and Losartan cont Imdur (2) CAD (coronary artery disease) Hx of Stent to LAD , now s/p Stent to RCA Status: Chronic as above (3) HTN (hypertension) Status: Chronic cont Losartan and Metoprolol, Imdur (4) Hypothyroid Status: Chronic TSH elevated , increased Levothyroxine to 125 mcg daily (5) DM type 2 (diabetes mellitus, type 2) Status: Chronic accucheck pt is on Novolin N 25 units q am and Regular insulin at dinner - refusing to change her dose (6) DVT prophylaxis Status: Acute Lovenox
[2017-11-24 23:50] VITALS: RESP 18
[2017-11-25] MEDS: Levothyroxine 125 MCG TAB PO SCH (06:11)
[2017-11-25 06:12] LABS: BLOOD UREA NITROGEN 26 mg/dl (7-17); CALCIUM 9.7 mg/dL (8.4-10.2); GFR AFRICAN-AMERICAN > 60; GFR NON-AFRICAN AMERICAN > 60
[2017-11-25 06:14] LABS: HEMOGLOBIN 11.7 g/dL (12.0-16.0); MEAN CELL VOLUME 91.9 fl (81.0-99.0); MEAN CORPUSCULAR HEMOGLOBIN 30.3 pg (27.0-31.0); RBC 3.85 Mil/uL (3.80-5.20); RED CELL DISTRIBUTION WIDTH 14.3 % (11.5-14.5); WHITE BLOOD COUNT 12.4 K/uL (4.8-10.8)
[2017-11-25] MEDS: Insulin Lispro (humaLOG) 100 Units/ml Inj SC SCH ×2 (06:34→11:48)
[2017-11-25] MEDS: Insulin Regular 100 units/ml SC SCH (08:20)
[2017-11-25] MEDS: Enoxaparin 40 mg Syringe SC SCH (08:21)
[2017-11-25] MEDS: Cholecalciferol 1,000 INTLU TAB PO SCH (08:27)
[2017-11-25 12:01] VITALS: BP 111/55; PULSE 56; TEMP 98.3; O2SAT 96
--- NOTE | 2017-11-25 12:40 | CP.PCM.DIS ---
Provider - Provider Date of Admission: 11/23/17 15:07 Attending physician: Chun Acosta MD Primary care physician: Dr. Roni Dwyer Consults: cardiology consult Time Spent in preparation of Discharge (in minutes): 20 Hospital Course - Lab Results Lab Results: Most Recent Lab Values WBC 12.4 K/uL (4.8-10.8) H D 11/25/17 04:20 RBC 3.85 Mil/uL (3.80-5.20) 11/25/17 04:20 Hgb 11.7 g/dL (12.0-16.0) L 11/25/17 04:20 Hct 35.4 % (34.0-47.0) 11/25/17 04:20 MCV 91.9 fl (81.0-99.0) 11/25/17 04:20 MCH 30.3 pg (27.0-31.0) 11/25/17 04:20 MCHC 33.0 g/dL (33.0-37.0) 11/25/17 04:20 RDW 14.3 % (11.5-14.5) 11/25/17 04:20 Plt Count 255 K/uL (130-400) 11/25/17 04:20 MPV 9.7 fl (7.2-11.7) 11/23/17 04:20 Neut % (Auto) 62.7 % (50.0-75.0) 11/23/17 04:20 Lymph % (Auto) 26.5 % (20.0-40.0) 11/23/17 04:20 [place] % (Auto) 7.3 % (0.0-10.0) 11/23/17 04:20 Eos % (Auto) 2.1 % (0.0-4.0) 11/23/17 04:20 Baso % (Auto) 1.4 % (0.0-2.0) 11/23/17 04:20 Neut # (Auto) 4.2 K/uL (1.8-7.0) 11/23/17 04:20 Lymph # (Auto) 1.8 K/uL (1.0-4.3) 11/23/17 04:20 [place] # (Auto) 0.5 K/uL (0.0-0.8) 11/23/17 04:20 Eos # (Auto) 0.1 K/uL (0.0-0.7) 11/23/17 04:20 Baso # (Auto) 0.1 K/uL (0.0-0.2) 11/23/17 04:20 PT 12.0 Seconds (9.8-13.1) 11/22/17 16:07 INR 1.1 (0.9-1.2) 11/22/17 16:07 APTT 32.6 Seconds (25.6-37.1) 11/22/17 16:07 Sodium 135 mmol/l (132-148) 11/25/17 04:20 Potassium 4.5 MMOL/L (3.6-5.0) 11/25/17 04:20 Chloride 100 mmol/L (98-107) 11/25/17 04:20 Carbon Dioxide 23 mmol/L (22-30) 11/25/17 04:20 Anion Gap 17 (10-20) 11/25/17 04:20 BUN 26 mg/dl (7-17) H 11/25/17 04:20 Creatinine 0.7 mg/dl (0.7-1.2) 11/25/17 04:20 Est GFR ( Amer) > 60 11/25/17 04:20 Est GFR (Non-Af Amer) > 60 11/25/17 04:20 POC Glucose (mg/dL) 492 mg/dL (65-110) H* 11/25/17 11:01 Random Glucose 445 mg/dL (65-105) H* D 11/25/17 04:20 Hemoglobin A1c 9.3 % (4.2-6.5) H 11/23/17 04:20 Calcium 9.7 mg/dL (8.4-10.2) 11/25/17 04:20 Phosphorus 3.0 mg/dl (2.5-4.5) 11/22/17 16:07 Magnesium 1.9 MG/DL (1.6-2.3) 11/22/17 16:07 Total Bilirubin 0.3 mg/dl (0.2-1.3) 11/22/17 16:07 AST 24 U/L (14-36) 11/22/17 16:07 ALT 32 U/L (9-52) 11/22/17 16:07 Alkaline Phosphatase 91 U/L (38-126) 11/22/17 16:07 Troponin I < 0.0120 ng/mL (0.00-0.120) 11/23/17 04:20 NT-Pro-B Natriuret Pep 148 pg/ml (0-900) 11/23/17 04:20 Total Protein 7.4 G/DL (6.3-8.2) 11/22/17 16:07 Albumin 4.0 g/dL (3.5-5.0) 11/22/17 16:07 Globulin 3.4 gm/dL (2.2-3.9) 11/22/17 16:07 Albumin/Globulin Ratio 1.2 (1.0-2.1) 11/22/17 16:07 Triglycerides 156 mg/DL (0-149) H D 11/23/17 04:20 Cholesterol 213 mg/dL (0-199) H 11/23/17 04:20 LDL Cholesterol Direct 93 mg/dL (0-129) 11/23/17 04:20 HDL Cholesterol 56 MG/DL (30-70) 11/23/17 04:20 TSH 3rd Generation 24.20 mIU/ML (0.46-4.68) H 11/23/17 04:20 - Hospital Course Hospital Course: 67 y/o lady with hx of CAD s/p Stent x 2 ( done at [facility] in 2011) , Hx of DM , Hypothyroidism, noncompliant with her meds , came because of Chest Pain. She had recent Cardiac Cath done last month showing Double Vessel CAD- according to pt, was scheduled for Stenting this week however developed sudden Chest Pain with Trop x 3 negative . Patient was taken for PCI and had stents placed in mid and distal RCA by Dr Frost - done in [facility] post cath doing well, hemodynamically stable. Cleared by cardiology for discharge. Had long discussion with patient about compliance with her medications especially blood thinners due to high risk of post cardiac cath in stent thrombosis in case of non compliance. Patient expresses understanding of the risks, including sudden ,but insisting that it will be her decision if she will take or not any pills since all medications have a lot of side effects. She seems to be very resistant to physician counselling on medication compliance. prescriptions sent to her pharmacy for p[lavix, BB, Losartan, imdur Synthroid, atorvastatin and ASA Advised to follow up with PMD and scheduled appointment for follow up with Dr. Frost in 1 week Will discharge patient home She is AAOx3 1. Chest pain/Unstable angina s/p PCI with stenting of mid and distL rca Continue Metoprolol 100 mg po QD , Losaratn 50 mg po QD, Imduur Refuses Brilinta . Agrees to try to take plavix for now ( non complinat ) D/c home follow up with Dr. Frost in 1 week 2. CAD (coronary artery disease) Hx of Stent to LAD , now s/p Stent to RCA medical management counselled on complinace with medications 3. HTN (hypertension) Chronic cont Losartan and Metoprolol, Imdur 4. Hypothyroid Chronic TSH elevated , increased Levothyroxine to 125 mcg daily 5. IDDM Chronic , not controlled Refusing to change her insulin regiment or dose accucheck pt is on Novolin N 25 units q am and Regular insulin at dinner follow up with her PMD (6) DVT prophylaxis Status: Acute Lovenox Discharge Exam - Head Exam Head Exam: NORMAL INSPECTION, NORMOCEPHALIC - Eye Exam Eye Exam: EOMI Pupil Exam: NORMAL ACCOMODATION - ENT Exam ENT Exam: Mucous Membranes Moist, Normal Exam - Neck Exam Neck exam: Full Rom, Normal Inspection - Respiratory Exam Respiratory Exam: Clear to PA & Lateral, NORMAL BREATHING PATTERN. absent: Rales, Rhonchi, Wheezes - Cardiovascular Exam Cardiovascular Exam: REGULAR RHYTHM, RRR, +S1, +S2. absent: JVD - GI/Abdominal Exam GI & Abdominal Exam: Normal Bowel Sounds, Soft. absent: Distended, Guarding, Rebound, Tenderness - Rectal Exam Rectal Exam: Deferred - Extremities Exam Extremities exam: normal capillary refill, normal inspection, pedal pulses present - Back Exam Back exam: NORMAL INSPECTION - Neurological Exam Neurological exam: Alert, CN II-XII Intact, Oriented x3, Reflexes Normal - Psychiatric Exam Psychiatric exam: Anxious - Skin Skin Exam: Dry, Normal Color, Warm Discharge Plan - Discharge Medications Prescriptions: Aspirin [Aspirin Chewable] 81 mg PO DAILY #30 chew Atorvastatin [Lipitor] 40 mg PO DAILY #30 tab Cholecalciferol (Vitamin D3) [Vitamin D3] 2,000 unit PO DAILY #30 capsule Clopidogrel [Plavix] 75 mg PO DAILY #30 tab Isosorbide Mononitrate ER [Imdur ER] 30 mg PO DAILY #30 tab Levothyroxine [Synthroid] 125 mcg PO DAILY@0630 #30 tab Losartan [Cozaar] 50 mg PO DAILY #30 tab Metoprolol Tartrate [Lopressor] 100 mg PO Q12 #60 tab - Follow Up Plan Condition: STABLE Disposition: HOME/ ROUTINE Patient education suggested?: Yes Instructions: Coronary Stenting (DC), Angina (DC) Additional Instructions: follow up wit on 12/04/17 at11:15am Referrals: Xavi Frost MD [Staff Provider] - Reymundo Waters MD [Medical Doctor] -
== END 2017-11-25 15:20 | disposition home or self-care (01) | DRG 247 ==
LOC: H.ER 15:31 → H.ERHOLD 19:43 → H.TEL 21:36 → OBSVTOIN 11-23 15:07
PROC: 027135Z Dilation of Coronary Artery, Two Arteries with Two Drug-eluting Intraluminal Devices, Percutaneous Approach (ICD-10-PCS; principal; 2017-11-24)
PROC: 4A023N7 Measurement of Cardiac Sampling and Pressure, Left Heart, Percutaneous Approach (ICD-10-PCS; 2017-11-24)
PROC: B206YZZ Plain Radiography of Right and Left Heart using Other Contrast (ICD-10-PCS; 2017-11-24)
DX: I25.110 Atherosclerotic heart disease of native coronary artery with unstable angina pectoris (principal); E11.65 Type 2 diabetes mellitus with hyperglycemia; I10 Essential (primary) hypertension; I25.2 Old myocardial infarction; E03.9 Hypothyroidism, unspecified; E78.5 Hyperlipidemia, unspecified; J45.909 Unspecified asthma, uncomplicated; H91.92 Unspecified hearing loss, left ear; F41.9 Anxiety disorder, unspecified; Z95.5 Presence of coronary angioplasty implant and graft; Z91.14 Patient's other noncompliance with medication regimen; Z91.19 Patient's noncompliance with other medical treatment and regimen; Z87.01 Personal history of pneumonia (recurrent); Z79.02 Long term (current) use of antithrombotics/antiplatelets; Z79.4 Long term (current) use of insulin; Z79.82 Long term (current) use of aspirin; Z88.0 Allergy status to penicillin; Z91.041 Radiographic dye allergy status

== ENCOUNTER 2017-12-09 14:49 | Observation (INO) | payer MEDICARE, OTHER ==
[2017-12-09 14:49] VITALS: BMI 29.5
[2017-12-09] MEDS ORDERED: Dextrose 50% SYRINGE Inj (50 ml) IVP ONE (15:18)
[2017-12-09] MEDS ORDERED: Dextrose 50% SYRINGE Inj (50 ml) ONE (15:47)
[2017-12-09 16:05] LABS: BASO # 0.1 K/uL (0.0-0.2); BASO % 0.7 % (0.0-2.0); EOS # 0.1 K/uL (0.0-0.7); LYMPH % 22.2 % (20.0-40.0); MEAN CELL VOLUME 91.2 fl (81.0-99.0); MEAN CORPUSCULAR HEMOGLOBIN 30.4 pg (27.0-31.0); MEAN CORPUSCULAR HGB CONC 33.3 g/dL (33.0-37.0); MEAN PLATELET VOLUME 9.8 fl (7.2-11.7); MONO # 0.5 K/uL (0.0-0.8); MONO % 5.4 % (0.0-10.0); NEUT # 6.2 K/uL (1.8-7.0); NEUT % 70.7 % (50.0-75.0); NRBC % 0.1 % (0.0-0.0); RBC 3.94 Mil/uL (3.80-5.20); RED CELL DISTRIBUTION WIDTH 14.5 % (11.5-14.5); WHITE BLOOD COUNT 8.8 K/uL (4.8-10.8)
[2017-12-09 16:16] LABS: ALB/GLOB RATIO 1.1 (1.0-2.1); ALBUMIN 4.3 g/dL (3.5-5.0); ALT/SGPT 37 U/L (9-52); AST/SGOT 31 U/L (14-36); BLOOD UREA NITROGEN 16 mg/dl (7-17); CALCIUM 9.8 mg/dL (8.4-10.2); GFR AFRICAN-AMERICAN > 60; GFR NON-AFRICAN AMERICAN > 60
--- NOTE | 2017-12-09 16:25 | ED PDOC ---
HPI: Trauma/Fall - HPI Time Seen by Provider: 12/09/17 15:00 Chief Complaint (Nursing): Hip Pain Chief Complaint (Provider): Left Hip Pain and Left Elbow Pain History Per: Patient History/Exam Limitations: no limitations Onset/Duration Of Symptoms: Days (x1) Additional Complaint(s): 67 y/o female with a pmhx of diabetes, hypothyroidism, and CAD (recent stent placed) presenting for evaluation of left hip and elbow pain s/p mechanical trip and fall on street prior to arrival. Patient denies any head injury. She states she feels fine and denies any vomiting or other pain. PMD: None provided Past Medical History Reviewed: Historical Data, Nursing Documentation, Vital Signs Vital Signs: Last Vital Signs Temp 98.3 F 12/09/17 14:52 Pulse 77 12/09/17 14:52 Resp 16 12/09/17 14:52 BP 139/68 12/09/17 14:52 Pulse Ox 100 12/09/17 14:52 - Medical History PMH: Anxiety, Asthma, CAD (with stent), Depression, Diabetes, HTN, Hypothyroidism, Pneumonia, Seizures (known seizure and does not take any meds for it) Denies: HIV, Chronic Kidney Disease - Surgical History Surgical History: Coronary Stent - Family History Family History: States: Unknown Family Hx - Social History Current smoker - smoking cessation education provided: No Alcohol: None Drugs: Denies - Immunization History Hx Tetanus Toxoid Vaccination: No Hx Influenza Vaccination: No Hx Pneumococcal Vaccination: No - Home Medications Home Medications: Ambulatory Orders Medication Instructions Recorded Insulin Human Regular [Novolin R] 2 unit SC DIN 08/29/16 Insulin Human Regular [Novolin R] 5 unit SC BRK 08/29/16 Insulin Human NPH [Humulin N] 25 unit SC QAM 10/16/17 Aspirin [Aspirin Chewable] 81 mg PO DAILY #30 chew 11/25/17 Atorvastatin [Lipitor] 40 mg PO DAILY #30 tab 11/25/17 Cholecalciferol (Vitamin D3) 2,000 unit PO DAILY #30 capsule 11/25/17 [Vitamin D3] Clopidogrel [Plavix] 75 mg PO DAILY #30 tab 11/25/17 Isosorbide Mononitrate ER [Imdur 30 mg PO DAILY #30 tab 11/25/17 ER] Levothyroxine [Synthroid] 125 mcg PO DAILY@0630 #30 tab 11/25/17 Losartan [Cozaar] 50 mg PO DAILY #30 tab 11/25/17 Metoprolol Tartrate [Lopressor] 100 mg PO Q12 #60 tab 11/25/17 - Allergies Allergies/Adverse Reactions: Allergies Allergy/AdvReac Type Severity Reaction Status Date / Time iodine Allergy DIZZINESS Verified 11/22/17 15:54 Penicillins Allergy RASH Verified 11/22/17 15:54 Review of Systems ROS Statement: Except As Marked, All Systems Reviewed And Found Negative Gastrointestinal: Negative for: Vomiting Musculoskeletal: Positive for: Arm Pain (left elbow pain), Other (left hip pain) Physical Exam - Reviewed Nursing Documentation Reviewed: Yes Vital Signs Reviewed: Yes - Physical Exam Appears: Positive for: Non-toxic, No Acute Distress Head Exam: Positive for: ATRAUMATIC, NORMAL INSPECTION, NORMOCEPHALIC Skin: Positive for: Normal Color, Warm, Dry. Negative for: Rash Eye Exam: Positive for: EOMI, Normal appearance, PERRL Neck: Positive for: Normal, Painless ROM, Supple Cardiovascular/Chest: Positive for: Regular Rate, Rhythm. Negative for: Murmur Respiratory: Positive for: Normal Breath Sounds. Negative for: Respiratory Distress Gastrointestinal/Abdominal: Positive for: Normal Exam, Soft. Negative for: Tenderness Back: Positive for: Normal Inspection. Negative for: L CVA Tenderness, R CVA Tenderness, Vertebral Tenderness Extremity: Positive for: Normal ROM, Tenderness (left hip tenderness, no hematoma, no swelling, no step off), Capillary Refill (less than 2 s), Other ( left elbow abrasion, full ROM, NV intact; lower extremities, full ROM, NV intact ). Negative for: Pedal Edema, Calf Tenderness, Deformity Neurologic/Psych: Positive for: Alert, Oriented. Negative for: Motor/Sensory Deficits - Laboratory Results Result Diagrams: 12/09/17 15:28 12/09/17 15:28 - ECG ECG Rhythm: Positive for: Sinus Rhythm (62) O2 Sat by Pulse Oximetry: 100 (RA) Pulse Ox Interpretation: Normal Medical Decision Making Medical Decision Makin:02 Initial Impression: mechanical fall R/o fracture, ro electrolyte abnormality ro infection such as uti Plan: --CMP --Troponin I --CBC --Glucose, POC Routine --Dextrose 50 ml IVP --Urine C&S --X-Ray Bilateral Hips --Urinalysis --Reevaluation Finger-stick showed blood glucose in 40s. Patient was in the process of eating when this provider entered the room for examination. pt likely then fell today due to low sugar. pt given one amp d50 and informed of xray results. pt will be admitted for observation for hypoglycemia to family practice. Resident aware and at [facility] at 1800. pt made aware and agreeable to stay. Scribe Attestation: Documented by Tim Tan, acting as a scribe for Amy Wolfe MD. Provider Scribe Attestation: All medical record entries made by the Scribe were at my direction and personally dictated by me. I have reviewed the chart and agree that the record accurately reflects my personal performance of the history, physical exam, medical decision making, and the department course for this patient. I have also personally directed, reviewed, and agree with the discharge instructions and disposition. Disposition - Clinical Impression Clinical Impression: Hypoglycemia, Fall - Patient ED Disposition Is Patient to be Admitted: Yes Counseled Patient/Family Regarding: Studies Performed, Diagnosis - Disposition Disposition Time: 17:00 Condition: STABLE
--- NOTE | 2017-12-09 18:02 | RAD ---
PROCEDURE: Radiographs of the pelvis and bilateral hips. HISTORY: Left hip pain status post fall. COMPARISON: Comparison made with prior radiographs left hip 09/21/2017. FINDINGS: BONES: Current study re- demonstrates in situ left total hip replacement. Hardware appears intact and appropriately located without evidence of loosening or infection. The left femoral head component is appropriately located within the acetabular component. The osseous structures appear intact. Minor heterotopic bone changes seen surrounding the joint space. Right hip is unremarkable. IMPRESSION: In situ left-sided total hip replacement. Hardware intact without evidence of failure. No evidence of acute displaced fracture nor dislocation
--- NOTE | 2017-12-09 19:16 | CP.PCM.HP ---
History of Present Illness - History of Present Illness History of Present Illness: Hx taken from patient and medical records Patient is poor historian Full code 67 y/o F with hx of CAD s/p Stent x 2 ( done at [facility] in 2011) , Hx of IDDM, Hypothyroidism, noncompliant with her meds, presented to ED s/ fall after tripping while walking outdoors this afternoon. Patient fell to her left side, denies LOC, vomiting, but admits feeling dazed after fall for few minutes. Patient denies CP, SOB, palpitations, dizziness. C/O diarrhea 2-3 days ago that resolved. States that this morning she was feeling great. She uses NPH insulin 25 unit s with 5 units of regular insulin every morning and had breakfast and lunch, however at ED she was found to be hypoglycemic. She had recent Cardiac Cath done last month showing Double Vessel CAD, Patient was taken for PCI and had stents placed in mid and distal RCA by Dr Frost - done in [facility] last month. ED course: BS=40s, d50 given and repeat BS=94. L/Hip Xray: No Fx or dislocation hard rodrigez in place Forearm Xray: No Fx or dislocation(my interpretation) EKG: Sinus arrhythmia Morphine 2 mg IV CBC unremarkable, Troponin WNL PMD: [facility] Cardiology: Dr Frost PMhx: IDDM, CAD, Stents, hypothyroid SHx: Former smoker FHx: Unknown Present on Admission - Present on Admission Any Indicators Present on Admission: Yes History of Uncontrolled Diabetes: Yes Review of Systems - Review of Systems All systems: reviewed and no additional remarkable complaints except (those described on HPI) Past Patient History - Infectious Disease Hx of Infectious Diseases: None - Past Medical History & Family History Past Medical History?: Yes - Past Social History Smoking Status: Former Smoker Alcohol: None Drugs: Denies - CARDIAC Hx Cardiac Disorders: Yes Hx Hypertension: Yes - PULMONARY Hx Asthma: Yes Hx Pneumonia: Yes - NEUROLOGICAL Hx Seizures: Yes (known seizure and does not take any meds for it) - HEENT Hx HEENT Problems: Yes Hx Deafness: Yes ([place] on left) - RENAL Hx Chronic Kidney Disease: No - ENDOCRINE/METABOLIC Hx Hypothyroidism: Yes - HEMATOLOGICAL/ONCOLOGICAL Hx Human Immunodeficiency Virus (HIV): No - INTEGUMENTARY Hx Dermatological Problems: No - MUSCULOSKELETAL/RHEUMATOLOGICAL Hx Musculoskeletal Disorders: Yes Hx Falls: Yes - GASTROINTESTINAL Hx Gastrointestinal Disorders: No - GENITOURINARY/GYNECOLOGICAL Hx Genitourinary Disorders: No - PSYCHIATRIC Hx Anxiety: Yes Hx Depression: Yes - SURGICAL HISTORY Hx Surgeries: Yes Hx Coronary Stent: Yes Hx Orthopedic Surgery: Yes Other/Comment: L/THR - ANESTHESIA Hx Anesthesia: Yes Hx Anesthesia Reactions: No Hx Malignant Hyperthermia: No Meds Allergies/Adverse Reactions: Allergies Allergy/AdvReac Type Severity Reaction Status Date / Time iodine Allergy DIZZINESS Verified 11/22/17 15:54 Penicillins Allergy RASH Verified 11/22/17 15:54 Physical Exam - Constitutional Appears: Non-toxic, No Acute Distress, Confused (at times) - Eye Exam Eye Exam: PERRL - ENT Exam ENT Exam: Mucous Membranes Moist - Respiratory Exam Respiratory Exam: Clear to Auscultation Bilateral, NORMAL BREATHING PATTERN. absent: Decreased Breath Sounds, Rales, Rhonchi, Wheezes - Cardiovascular Exam Cardiovascular Exam: REGULAR RHYTHM, +S1, +S2. absent: Gallop - GI/Abdominal Exam GI & Abdominal Exam: Normal Bowel Sounds, Soft. absent: Guarding, Hernia, Rigid , Tenderness - Extremities Exam Extremities exam: Positive for: normal capillary refill. Negative for: calf tenderness, tenderness - Expanded Upper Extremities Exam Left General: normal inspection. absent: abrasion Shoulder exam: absent: abrasion, swelling, tenderness Upper Arm exam: absent: abrasion, deformity, laceration Elbow exam: tenderness. absent: abrasion, deformity, dislocation, full ROM ( Pain with ROM), laceration Forearm Wrist exam: absent: abrasion, crepitus, deformity, dislocation, laceration, tenderness Vascular exam: normal capillary refill - Neurological Exam Neurological exam: Alert, Oriented x3 - Psychiatric Exam Additional comments: Paranoid behavior - Skin Skin Exam: Normal Color, Warm Results - Vital Signs Recent Vital Signs: Last Vital Signs Temp 98.3 F 12/09/17 14:52 Pulse 77 12/09/17 14:52 Resp 16 12/09/17 14:52 BP 139/68 12/09/17 14:52 Pulse Ox 100 12/09/17 18:14 - Labs Result Diagrams: 12/09/17 15:28 12/09/17 15:28 Labs: Laboratory Results - last 24 hr 12/09/17 12/09/17 12/09/17 15:10 15:28 15:28 WBC 8.8 RBC 3.94 Hgb 12.0 Hct 35.9 MCV 91.2 MCH 30.4 MCHC 33.3 RDW 14.5 Plt Count 284 MPV 9.8 Neut % (Auto) 70.7 Lymph % (Auto) 22.2 Cooper % (Auto) 5.4 Eos % (Auto) 1.0 Baso % (Auto) 0.7 Neut # (Auto) 6.2 Lymph # (Auto) 2.0 Cooper # (Auto) 0.5 Eos # (Auto) 0.1 Baso # (Auto) 0.1 Sodium 144 Potassium 4.3 Chloride 106 Carbon Dioxide 24 Anion Gap 18 BUN 16 Creatinine 0.7 Est GFR ( Amer) > 60 Est GFR (Non-Af Amer) > 60 POC Glucose (mg/dL) 47 L Random Glucose 44 L Calcium 9.8 Total Bilirubin 0.4 AST 31 ALT 37 Alkaline Phosphatase 106 Troponin I < 0.0120 Total Protein 8.0 Albumin 4.3 Globulin 3.7 Albumin/Globulin Ratio 1.1 12/09/17 18:12 WBC RBC Hgb Hct MCV MCH MCHC RDW Plt Count MPV Neut % (Auto) Lymph % (Auto) [place] % (Auto) Eos % (Auto) Baso % (Auto) Neut # (Auto) Lymph # (Auto) Cooper # (Auto) Eos # (Auto) Baso # (Auto) Sodium Potassium Chloride Carbon Dioxide Anion Gap BUN Creatinine Est GFR ( Amer) Est GFR (Non-Af Amer) POC Glucose (mg/dL) 94 Random Glucose Calcium Total Bilirubin AST ALT Alkaline Phosphatase Troponin I Total Protein Albumin Globulin Albumin/Globulin Ratio Assessment & Plan - Assessment and Plan (Free Text) Assessment: 67 y/o with multiple co-morbidities admitted for hypoglycemia and s/p fall for obs Hypoglycemia BS=47 Resolved Likely due to uncontrolled DM As per patient she used usual dose of Insulin and ate well. Patient is known to be non compliant with her meds and self manage her DM Repeat BS 94 Hypoglycemia protocol IDDM Chronic Uncontrolled Last HGbA1c 9.3 on 11/23/17 As per patient she is Type 1 On NPH 25 units AM and regular insulin with meals that she self manage Will stop home insulin and will start [place] dose ISS while inpatient only Diabetic diet CAD Chronic Stable No CP EKG and Trops neg for ischemia C/W Home meds Contusions, s/p fall Pain control with Toradol Await F/U official forearm Xray report HIP Xray neg for Fx or dislocation Monitor DVT prophylaxis SCD for now
[2017-12-09] MEDS ORDERED: Dextrose 50% SYRINGE Inj (50 ml) IVP PRN (19:18)
[2017-12-09] MEDS ORDERED: Glucagon Recombinant 1 mg Inj IM PRN (19:18)
[2017-12-09] MEDS ORDERED: Insulin Regular 100 units/ml SC SCH (22:00)
[2017-12-10 04:03] LABS: SQUAMOUS EPITHIAL 3 /hpf (0-5); URINE BACTERIA RARE (<OCC); URINE BILIRUBIN NEGATIVE (NEGATIVE); URINE BLOOD NEGATIVE (NEGATIVE); URINE CLARITY SLIGHTY-CLOUDY (Clear); URINE COLOR YELLOW (YELLOW); URINE GLUCOSE (UA) NEG (Normal); URINE LEUKOCYTE ESTERASE NEG Leu/uL (Negative); URINE PROTEIN NEGATIVE (NEGATIVE); URINE UROBILINOGEN 0.2-1.0 mg/dL (0.2-1.0)
[2017-12-10 06:20] LABS: ALB/GLOB RATIO 1.2 (1.0-2.1); ALBUMIN 4.1 g/dL (3.5-5.0); ALT/SGPT 33 U/L (9-52); AST/SGOT 25 U/L (14-36); BLOOD UREA NITROGEN 15 mg/dl (7-17); CALCIUM 9.8 mg/dL (8.4-10.2); GFR AFRICAN-AMERICAN > 60; GFR NON-AFRICAN AMERICAN > 60
[2017-12-10 06:25] LABS: BASO # 0.1 K/uL (0.0-0.2); BASO % 0.9 % (0.0-2.0); EOS # 0.1 K/uL (0.0-0.7); EOS % 1.6 % (0.0-4.0); HEMOGLOBIN 12.3 g/dL (12.0-16.0); LYMPH # 1.5 K/uL (1.0-4.3); LYMPH % 17.6 % (20.0-40.0); MEAN CORPUSCULAR HEMOGLOBIN 30.2 pg (27.0-31.0); MEAN CORPUSCULAR HGB CONC 33.2 g/dL (33.0-37.0); MEAN PLATELET VOLUME 9.7 fl (7.2-11.7); MONO # 0.4 K/uL (0.0-0.8); MONO % 5.1 % (0.0-10.0); NEUT # 6.3 K/uL (1.8-7.0); NEUT % 74.8 % (50.0-75.0); RBC 4.06 Mil/uL (3.80-5.20); RED CELL DISTRIBUTION WIDTH 14.1 % (11.5-14.5); WHITE BLOOD COUNT 8.4 K/uL (4.8-10.8)
[2017-12-10] MEDS: Levothyroxine 125 MCG TAB PO SCH (06:33)
[2017-12-10] MEDS ORDERED: Insulin Regular 100 units/ml SC SCH (07:54)
--- NOTE | 2017-12-10 10:03 | CP.PCM.DIS ---
Provider - Provider Date of Admission: 12/09/17 17:57 Attending physician: Tina Cornejo MD Hospital Course - Lab Results Lab Results: Most Recent Lab Values WBC 8.4 K/uL (4.8-10.8) 12/10/17 05:50 RBC 4.06 Mil/uL (3.80-5.20) 12/10/17 05:50 Hgb 12.3 g/dL (12.0-16.0) 12/10/17 05:50 Hct 37.0 % (34.0-47.0) 12/10/17 05:50 MCV 91.0 fl (81.0-99.0) 12/10/17 05:50 MCH 30.2 pg (27.0-31.0) 12/10/17 05:50 MCHC 33.2 g/dL (33.0-37.0) 12/10/17 05:50 RDW 14.1 % (11.5-14.5) 12/10/17 05:50 Plt Count 257 K/uL (130-400) 12/10/17 05:50 MPV 9.7 fl (7.2-11.7) 12/10/17 05:50 Neut % (Auto) 74.8 % (50.0-75.0) 12/10/17 05:50 Lymph % (Auto) 17.6 % (20.0-40.0) L 12/10/17 05:50 [place] % (Auto) 5.1 % (0.0-10.0) 12/10/17 05:50 Eos % (Auto) 1.6 % (0.0-4.0) 12/10/17 05:50 Baso % (Auto) 0.9 % (0.0-2.0) 12/10/17 05:50 Neut # (Auto) 6.3 K/uL (1.8-7.0) 12/10/17 05:50 Lymph # (Auto) 1.5 K/uL (1.0-4.3) 12/10/17 05:50 [place] # (Auto) 0.4 K/uL (0.0-0.8) 12/10/17 05:50 Eos # (Auto) 0.1 K/uL (0.0-0.7) 12/10/17 05:50 Baso # (Auto) 0.1 K/uL (0.0-0.2) 12/10/17 05:50 Sodium 138 mmol/l (132-148) 12/10/17 05:50 Potassium 4.3 MMOL/L (3.6-5.0) 12/10/17 05:50 Chloride 101 mmol/L (98-107) 12/10/17 05:50 Carbon Dioxide 25 mmol/L (22-30) 12/10/17 05:50 Anion Gap 16 (10-20) 12/10/17 05:50 BUN 15 mg/dl (7-17) 12/10/17 05:50 Creatinine 0.6 mg/dl (0.7-1.2) L 12/10/17 05:50 Est GFR ( Amer) > 60 12/10/17 05:50 Est GFR (Non-Af Amer) > 60 12/10/17 05:50 POC Glucose (mg/dL) 239 mg/dL (65-110) H 12/10/17 05:45 Random Glucose 258 mg/dL (65-105) H 12/10/17 05:50 Calcium 9.8 mg/dL (8.4-10.2) 12/10/17 05:50 Total Bilirubin 0.6 mg/dl (0.2-1.3) 12/10/17 05:50 AST 25 U/L (14-36) 12/10/17 05:50 ALT 33 U/L (9-52) 12/10/17 05:50 Alkaline Phosphatase 109 U/L (38-126) 12/10/17 05:50 Troponin I < 0.0120 ng/mL (0.00-0.120) 12/09/17 15:28 Total Protein 7.6 G/DL (6.3-8.2) 12/10/17 05:50 Albumin 4.1 g/dL (3.5-5.0) 12/10/17 05:50 Globulin 3.5 gm/dL (2.2-3.9) 12/10/17 05:50 Albumin/Globulin Ratio 1.2 (1.0-2.1) 12/10/17 05:50 Urine Color Yellow (YELLOW) 12/10/17 03:30 Urine Clarity Slighty-cloudy (Clear) 12/10/17 03:30 Urine pH 7.0 (5.0-8.0) 12/10/17 03:30 Ur Specific Effie 1.012 (1.003-1.030) 12/10/17 03:30 Urine Protein Negative mg/dL (NEGATIVE) 12/10/17 03:30 Urine Glucose (UA) Neg mg/dL (Normal) 12/10/17 03:30 Urine Ketones Negative mg/dL (NEGATIVE) 12/10/17 03:30 Urine Blood Negative (NEGATIVE) 12/10/17 03:30 Urine Nitrate Negative (NEGATIVE) 12/10/17 03:30 Urine Bilirubin Negative (NEGATIVE) 12/10/17 03:30 Urine Urobilinogen 0.2-1.0 mg/dL (0.2-1.0) 12/10/17 03:30 Ur Leukocyte Esterase Neg Mariely/uL (Negative) 12/10/17 03:30 Urine RBC (Auto) < 1 /hpf (0-3) 12/10/17 03:30 Urine Microscopic WBC 1 /hpf (0-5) 12/10/17 03:30 Ur Squamous Epith Cells 3 /hpf (0-5) 12/10/17 03:30 Urine Bacteria Rare (<OCC) 12/10/17 03:30 Discharge Exam - Head Exam Head Exam: ATRAUMATIC, NORMAL INSPECTION, NORMOCEPHALIC Discharge Plan - Follow Up Plan Condition: STABLE Disposition: HOME/ ROUTINE
--- NOTE | 2017-12-10 10:33 | RAD ---
PROCEDURE: Radiographs of the Left Forearm HISTORY: Status post fall COMPARISON: None available. TECHNIQUE: Frontal and lateral views obtained. . Note that the examination is limited due to poor patient positioning FINDINGS: BONES: There is a mildly displaced fracture of the radial head. Remaining osseous structures appear intact so far as can be seen. Apparent benign-appearing cystic changes within the navicular and triquetrum JOINT SPACES: Unremarkable. OTHER FINDINGS: None. IMPRESSION: Fracture of the radial head. . Dedicated radiographs of the left elbow recommended Note that this report was placed in PA review folder for followup
[2017-12-10] MEDS ORDERED: Insulin Regular 100 units/ml SC ONE (10:39)
[2017-12-10] MEDS ORDERED: Insulin NPH Human 100 Units/ml Inj SC SCH (10:45)
--- NOTE | 2017-12-10 14:30 | CP.PCM.PN ---
Subjective - Date & Time of Evaluation Date of Evaluation: 12/10/17 Time of Evaluation: 08:05 - Subjective Subjective: 67 y/o F evaluated and examined by bedside. Pt complains of L elbow pain that is constant, 10/10 intensity and aggravated with movements and palpation. Pt had a fall yesterday. Pt also complaining of L hip pain that is constant and non -radiating. Pt afebrile, tolerating PO. No acute events overnight. Objective - Vital Signs/Intake and Output Vital Signs (last 24 hours): Temp Pulse Resp BP Pulse Ox 98.4 F 76 20 136/65 98 12/10/17 08:06 12/10/17 08:53 12/10/17 08:06 12/10/17 08:53 12/10/17 08:06 - Medications Medications: Current Medications Acetaminophen (Tylenol 325mg Tab) 650 mg PO Q6 PRN PRN Reason: Pain, Mild (1-3) Last Admin: 12/09/17 23:13 Dose: 650 mg Aspirin (Aspirin Chewable) 81 mg PO DAILY [facility] Last Admin: 12/10/17 08:52 Dose: 81 mg Atorvastatin Calcium (Lipitor) 40 mg PO DAILY [facility] Last Admin: 12/10/17 08:53 Dose: Not Given Clopidogrel Bisulfate (Plavix) 75 mg PO DAILY@2100 [facility] Dextrose (Dextrose 50% Inj) 0 ml IVP STAT PRN; Protocol PRN Reason: Hypoglycemia Protocol Glucagon (Glucagen Diagnostic Kit) 0 mg IM STAT PRN; Protocol PRN Reason: Hypoglycemia Protocol Insulin Human NPH (Humulin N) 25 units SC QAM [facility] Insulin Human Regular (Humulin R) 0 units SC ACHS [facility] PRN Reason: Protocol Isosorbide Mononitrate (Imdur Er) 30 mg PO DAILY [facility] Last Admin: 12/10/17 09:04 Dose: Not Given Ketorolac Tromethamine (Toradol) 30 mg IVP Q6 PRN PRN Reason: Pain, severe (8-10) Ketorolac Tromethamine (Toradol) 15 mg IVP Q6 PRN PRN Reason: Pain, moderate (4-7) Levothyroxine Sodium (Synthroid) 125 mcg PO DAILY@0630 [facility] Last Admin: 12/10/17 06:33 Dose: 125 mcg Losartan Potassium (Cozaar) 50 mg PO DAILY [facility] Last Admin: 12/10/17 08:52 Dose: Not Given Metoprolol Tartrate (Lopressor) 100 mg PO Q12 [facility] Last Admin: 12/10/17 08:53 Dose: 100 mg - Labs Labs: 12/10/17 05:50 12/10/17 05:50 - Constitutional Appears: Well, Non-toxic - Head Exam Head Exam: ATRAUMATIC, NORMAL INSPECTION - Eye Exam Eye Exam: EOMI - ENT Exam ENT Exam: Mucous Membranes Moist - Neck Exam Neck Exam: Full ROM - Respiratory Exam Respiratory Exam: Clear to Ausculation Bilateral, NORMAL BREATHING PATTERN - Cardiovascular Exam Cardiovascular Exam: REGULAR RHYTHM, +S1, +S2 - GI/Abdominal Exam GI & Abdominal Exam: Soft, Normal Bowel Sounds. absent: Tenderness - Extremities Exam Additional comments: L elbow: mild swelling, presence of mild tenderness, ROM normal but painful, strength 4/5, SILT, distal pulses present. NO erythema or superficial lesion noted. L hip: tenderness, SILT, strenght 5/5. - Neurological Exam Neurological Exam: Alert, Awake, Oriented x3 Assessment and Plan - Assessment and Plan (Free Text) Assessment: 67 y/o with multiple co-morbidities admitted for hypoglycemia and s/p fall. Fracture of left radial head was discovered on XR of L elbow. Plan: L radial fracture -XR L elbow: fracture of radial head. Dedicated XR films were recommended. -Orthopedic Surgery, Dr Gudino, consulted. Awaiting recommendations. -X ray of L elbow, 3 views for more details. -Sling placed of affected arm Contusion, s/p fall -Pain control with Toradol -HIP Xray neg for Fx or dislocation -Monitor symptoms Hypoglycemia -Resolved -Likely due to uncontrolled DM -Patient is non-compliant with her meds and self manage her DM -Humulin 25 units administered today. -NPH 25 units every morning and 5 units of regular insulin at breakfast. -Hypoglycemia protocol IDDM -Uncontrolled, ast HGbA1c 9.3 on 11/23/17 -Diabetic diet -NPH 25 units every morning and 5 units of regular insulin at breakfast. CAD -Chronic, Stable -No CP -EKG and Trops neg for ischemia -C/W Home meds DVT prophylaxis Enoxaparin 40mg SC daily
[2017-12-10] MEDS: Insulin Regular 100 units/ml SC SCH ×2 (17:27→22:43)
--- NOTE | 2017-12-10 17:30 | CT ---
PROCEDURE: CT left lower extremity/pelvis HISTORY: left hip contusion, h/o HARRISON COMPARISON: December 09, 2017. Plain film radiographs bilateral hips TECHNIQUE: 2.5 mm axial acquisition and display. Coronal and sagittal reconstructions. 3D volumetric reconstruction Dose report (mGy-cm): 659.67 FINDINGS: There are no osseous abnormalities to suggest fracture. The pelvic ring is intact. Satisfactory position, alignment of components left HARRISON. No evidence of hardware failure. No evidence of loosening. No acute soft tissue abnormalities identified. No visible abnormalities in the pelvis. Limitations of the current examination: Artifact related to left HARRISON. IMPRESSION: No acute findings related to/accounting for the clinical presentation.
--- NOTE | 2017-12-10 17:39 | CP.PCM.CON ---
History of Present Illness - History of Present Illness History of Present Illness: Orthopedic consult Patient is a RHD 67 y/o female with PMH of IDDM, hypothyroidism and seizures admitted following a mechanical fall yesterday onto her L side. Patient is currently complaining of left elbow and left hip pain. Dr. Gudino was consulted for orthopedic evaluation. Her left elbow pain is located laterally and posteriorly, is constant and aching in quality. The pain occasionally radiates to her mid forearm. The pain worsens with bending, straightening and rotating her forearm. The pain is alleviated when at rest in a sling. She denies any numbness or tingling. In regards to her L hip, the pain is related to activity and weightbearing and relieved with rest. The patient states that the hip pain is dull in quality and located at the lateral aspect at the site of the fall. She denies any radiation of pain, numbness or tingling. She has a history of a left HARRISON. She denies CP/SOB/N/V/D/LAYTON/fever/dysuria/melena. Past Patient History - Infectious Disease Hx of Infectious Diseases: None - Past Medical History & Family History Past Medical History?: Yes - Past Social History Smoking Status: Never Smoked Alcohol: Social (wine) Drugs: Denies - CARDIAC Hx Cardiac Disorders: Yes Hx Hypertension: Yes - PULMONARY Hx Respiratory Disorders: Yes Hx Asthma: Yes Hx Pneumonia: Yes - NEUROLOGICAL Hx Neurological Disorder: Yes Hx Seizures: Yes (known seizure and does not take any meds for it) - HEENT Hx HEENT Problems: Yes Hx Deafness: Yes ([place] on left) - RENAL Hx Chronic Kidney Disease: No - ENDOCRINE/METABOLIC Hx Endocrine Disorders: Yes Hx Hypothyroidism: Yes - HEMATOLOGICAL/ONCOLOGICAL Hx Blood Disorders: No Hx Human Immunodeficiency Virus (HIV): No - INTEGUMENTARY Hx Dermatological Problems: No - MUSCULOSKELETAL/RHEUMATOLOGICAL Hx Musculoskeletal Disorders: Yes Hx Falls: Yes ([employer]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[employer]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[employer]) - GASTROINTESTINAL Hx Gastrointestinal Disorders: No - GENITOURINARY/GYNECOLOGICAL Hx Genitourinary Disorders: No - PSYCHIATRIC Hx Psychophysiologic Disorder: Yes Hx Anxiety: Yes Hx Depression: Yes Hx Substance Use: No - SURGICAL HISTORY Hx Surgeries: Yes Hx Coronary Stent: Yes Hx Orthopedic Surgery: Yes (L HARRISON) Other/Comment: L/THR - ANESTHESIA Hx Anesthesia: Yes Hx Anesthesia Reactions: No Hx Malignant Hyperthermia: No Meds Allergies/Adverse Reactions: Allergies Allergy/AdvReac Type Severity Reaction Status Date / Time iodine Allergy DIZZINESS Verified 11/22/17 15:54 Penicillins Allergy RASH Verified 11/22/17 15:54 - Medications Medications: Current Medications Acetaminophen (Tylenol 325mg Tab) 650 mg PO Q6 PRN PRN Reason: Pain, Mild (1-3) Last Admin: 12/09/17 23:13 Dose: 650 mg Alprazolam (Xanax) 0.5 mg PO ONCE ONE Stop: 12/10/17 17:24 Aspirin (Aspirin Chewable) 81 mg PO DAILY [facility] Last Admin: 12/10/17 08:52 Dose: 81 mg Atorvastatin Calcium (Lipitor) 40 mg PO DAILY [facility] Last Admin: 12/10/17 08:53 Dose: Not Given Clopidogrel Bisulfate (Plavix) 75 mg PO DAILY@2100 [facility] Dextrose (Dextrose 50% Inj) 0 ml IVP STAT PRN; Protocol PRN Reason: Hypoglycemia Protocol Enoxaparin Sodium (Lovenox) 40 mg SC HS [facility] PRN Reason: Protocol Glucagon (Glucagen Diagnostic Kit) 0 mg IM STAT PRN; Protocol PRN Reason: Hypoglycemia Protocol Insulin Human NPH (Humulin N) 25 units SC QAM [facility] Insulin Human Regular (Humulin R) 0 units SC ACHS [facility] PRN Reason: Protocol Last Admin: 12/10/17 17:27 Dose: 4 u Isosorbide Mononitrate (Imdur Er) 30 mg PO DAILY [facility] Last Admin: 12/10/17 09:04 Dose: Not Given Ketorolac Tromethamine (Toradol) 30 mg IVP Q6 PRN PRN Reason: Pain, severe (8-10) Ketorolac Tromethamine (Toradol) 15 mg IVP Q6 PRN PRN Reason: Pain, moderate (4-7) Levothyroxine Sodium (Synthroid) 125 mcg PO DAILY@0630 [facility] Last Admin: 12/10/17 06:33 Dose: 125 mcg Losartan Potassium (Cozaar) 50 mg PO DAILY [facility] Last Admin: 12/10/17 08:52 Dose: Not Given Metoprolol Tartrate (Lopressor) 100 mg PO Q12 [facility] Last Admin: 12/10/17 08:53 Dose: 100 mg Physical Exam - Constitutional Appears: No Acute Distress - Head Exam Head Exam: ATRAUMATIC, NORMOCEPHALIC - Eye Exam Eye Exam: EOMI, Normal appearance, PERRL - ENT Exam ENT Exam: Mucous Membranes Moist - Neck Exam Neck exam: Positive for: Normal Inspection - Respiratory Exam Respiratory Exam: Clear to Auscultation Bilateral, NORMAL BREATHING PATTERN - Cardiovascular Exam Cardiovascular Exam: REGULAR RHYTHM - GI/Abdominal Exam GI & Abdominal Exam: Normal Bowel Sounds, Soft - Extremities Exam Additional comments: L elbow: + tenderness posteriorly at olecranon, no tenderness medially or laterally, no tenderness with palpation of radial head, mild swelling ROM 30-120 degrees, limited supination and pronation 2nd to pain sensation intact MN/UN/RN motor intact MN/UN/RN radial pulse intact comps soft NT R elbow: no tenderness, no swelling, no lesions ROM 0-140 degrees sensation intact MN/UN/RN motor intact MN/UN/RN radial pulse intact comps soft NT L hip:+ tenderness over greater troch, no groin tenderness, old HARRISON scar, minimal swelling ROM de flex, 10 ext, 30 ext rot, 10 int rot sensation intact SP/DP/TN motor intact EHL/FHL pedal pulses intact comps soft NT R hip:no tenderness, no swelling, no lesions ROM de flex, 10 ext, 45 ext rot, 20 int rot sensation intact SP/DP/TN motor intact EHL/FHL pedal pulses intact comps soft NT Results - Vital Signs Recent Vital Signs: Last Vital Signs Temp 99.2 F 12/10/17 17:21 Pulse 59 L 12/10/17 17:21 Resp 18 12/10/17 17:21 BP 142/66 12/10/17 17:21 Pulse Ox 95 12/10/17 17:21 - Labs Result Diagrams: 12/10/17 05:50 12/10/17 05:50 Labs: Laboratory Results - last 24 hr 12/09/17 12/09/17 12/10/17 18:12 22:57 03:30 WBC RBC Hgb Hct MCV MCH MCHC RDW Plt Count MPV Neut % (Auto) Lymph % (Auto) [place] % (Auto) Eos % (Auto) Baso % (Auto) Neut # (Auto) Lymph # (Auto) [place] # (Auto) Eos # (Auto) Baso # (Auto) Sodium Potassium Chloride Carbon Dioxide Anion Gap BUN Creatinine Est GFR ( Amer) Est GFR (Non-Af Amer) POC Glucose (mg/dL) 94 235 H Random Glucose Calcium Total Bilirubin AST ALT Alkaline Phosphatase Total Protein Albumin Globulin Albumin/Globulin Ratio Urine Color Yellow Urine Clarity Slighty-cloudy Urine pH 7.0 Ur Specific [place] 1.012 Urine Protein Negative Urine Glucose (UA) Neg Urine Ketones Negative Urine Blood Negative Urine Nitrate Negative Urine Bilirubin Negative Urine Urobilinogen 0.2-1.0 Ur Leukocyte Esterase Neg Urine RBC (Auto) < 1 Urine Microscopic WBC 1 Ur Squamous Epith Cells 3 Urine Bacteria Rare 12/10/17 12/10/17 12/10/17 05:45 05:50 05:50 WBC 8.4 RBC 4.06 Hgb 12.3 Hct 37.0 MCV 91.0 MCH 30.2 MCHC 33.2 RDW 14.1 Plt Count 257 MPV 9.7 Neut % (Auto) 74.8 Lymph % (Auto) 17.6 L [place] % (Auto) 5.1 Eos % (Auto) 1.6 Baso % (Auto) 0.9 Neut # (Auto) 6.3 Lymph # (Auto) 1.5 [place] # (Auto) 0.4 Eos # (Auto) 0.1 Baso # (Auto) 0.1 Sodium 138 Potassium 4.3 Chloride 101 Carbon Dioxide 25 Anion Gap 16 BUN 15 Creatinine 0.6 L Est GFR ( Amer) > 60 Est GFR (Non-Af Amer) > 60 POC Glucose (mg/dL) 239 H Random Glucose 258 H Calcium 9.8 Total Bilirubin 0.6 AST 25 ALT 33 Alkaline Phosphatase 109 Total Protein 7.6 Albumin 4.1 Globulin 3.5 Albumin/Globulin Ratio 1.2 Urine Color Urine Clarity Urine pH Ur Specific [place] Urine Protein Urine Glucose (UA) Urine Ketones Urine Blood Urine Nitrate Urine Bilirubin Urine Urobilinogen Ur Leukocyte Esterase Urine RBC (Auto) Urine Microscopic WBC Ur Squamous Epith Cells Urine Bacteria 12/10/17 12/10/17 10:38 15:44 WBC RBC Hgb Hct MCV MCH MCHC RDW Plt Count MPV Neut % (Auto) Lymph % (Auto) [place] % (Auto) Eos % (Auto) Baso % (Auto) Neut # (Auto) Lymph # (Auto) [place] # (Auto) Eos # (Auto) Baso # (Auto) Sodium Potassium Chloride Carbon Dioxide Anion Gap BUN Creatinine Est GFR ( Amer) Est GFR (Non-Af Amer) POC Glucose (mg/dL) 312 H 405 H* Random Glucose Calcium Total Bilirubin AST ALT Alkaline Phosphatase Total Protein Albumin Globulin Albumin/Globulin Ratio Urine Color Urine Clarity Urine pH Ur Specific [place] Urine Protein Urine Glucose (UA) Urine Ketones Urine Blood Urine Nitrate Urine Bilirubin Urine Urobilinogen Ur Leukocyte Esterase Urine RBC (Auto) Urine Microscopic WBC Ur Squamous Epith Cells Urine Bacteria Assessment & Plan (1) Radial head fracture Assessment and Plan: -MRI of L elbow for further information -patient placed in posterior splint and sling -NWB LUE -above d/w Dr. Gudino in agreement Status: Acute (2) Contusion of left hip Assessment and Plan: -Xray and Ct scan are negative for acute woo-prosthetic injuries -PT/OT WBAT -NSAID's and ice -above d/w Dr. Gudino in agreement Status: Acute Radiology Interpretation - Journalist Journalist:: Radiologist - Notes: Notes:: PROCEDURE: Radiographs of the Left Forearm HISTORY: Status post fall COMPARISON: None available. TECHNIQUE: Frontal and lateral views obtained. . Note that the examination is limited due to poor patient positioning FINDINGS: BONES: There is a mildly displaced fracture of the radial head. Remaining osseous structures appear intact so far as can be seen. Apparent benign-appearing cystic changes within the navicular and triquetrum JOINT SPACES: Unremarkable. OTHER FINDINGS: None. IMPRESSION: Fracture of the radial head. . Dedicated radiographs of the left elbow recommended Note that this report was placed in [place] review folder for followup PROCEDURE: Radiographs of the left elbow. HISTORY: Left radial head fracture COMPARISON: December 09, 2017. FINDINGS: BONES: Findings apparent on the prior study of the left forearm are not seen with clarity on the current examination. Positive anterior and posterior fat pad signs consistent with radial head fracture. JOINTS: Normal. No osteoarthritis. JOINT EFFUSION: None. OTHER FINDINGS: None IMPRESSION: Nondisplaced radial head fracture better visualized on prior studies. PROCEDURE: Radiographs of the pelvis and bilateral hips. HISTORY: Left hip pain status post fall. COMPARISON: Comparison made with prior radiographs left hip 09/21/2017. FINDINGS: BONES: Current study re- demonstrates in situ left total hip replacement. Hardware appears intact and appropriately located without evidence of loosening or infection. The left femoral head component is appropriately located within the acetabular component. The osseous structures appear intact. Minor heterotopic bone changes seen surrounding the joint space. Right hip is unremarkable. IMPRESSION: In situ left-sided total hip replacement. Hardware intact without evidence of failure. No evidence of acute displaced fracture nor dislocation PROCEDURE: CT left lower extremity/pelvis HISTORY: left hip contusion, h/o HARRISON COMPARISON: December 09, 2017. Plain film radiographs bilateral hips TECHNIQUE: 2.5 mm axial acquisition and display. Coronal and sagittal reconstructions. 3D volumetric reconstruction Dose report (mGy-cm): 659.67 FINDINGS: There are no osseous abnormalities to suggest fracture. The pelvic ring is intact. Satisfactory position, alignment of components left HARRISON. No evidence of hardware failure. No evidence of loosening. No acute soft tissue abnormalities identified. No visible abnormalities in the pelvis. Limitations of the current examination: Artifact related to left HARRISON. IMPRESSION: No acute findings related to/accounting for the clinical presentation.
--- NOTE | 2017-12-10 17:51 | RAD ---
PROCEDURE: Radiographs of the left elbow. HISTORY: Left radial head fracture COMPARISON: December 09, 2017. FINDINGS: BONES: Findings apparent on the prior study of the left forearm are not seen with clarity on the current examination. Positive anterior and posterior fat pad signs consistent with radial head fracture. JOINTS: Normal. No osteoarthritis. JOINT EFFUSION: None. OTHER FINDINGS: None IMPRESSION: Nondisplaced radial head fracture better visualized on prior studies.
[2017-12-10] MEDS ORDERED: Enoxaparin 40 mg Syringe SC SCH (22:00)
[2017-12-11] MEDS: Levothyroxine 125 MCG TAB PO SCH (06:43)
[2017-12-11 06:55] LABS: ALB/GLOB RATIO 1.1 (1.0-2.1); ALBUMIN 3.7 g/dL (3.5-5.0); ALT/SGPT 25 U/L (9-52); AST/SGOT 24 U/L (14-36); BLOOD UREA NITROGEN 18 mg/dl (7-17); CALCIUM 9.7 mg/dL (8.4-10.2); GFR AFRICAN-AMERICAN > 60; GFR NON-AFRICAN AMERICAN > 60
[2017-12-11 07:00] LABS: HEMOGLOBIN 11.9 g/dL (12.0-16.0); MEAN CELL VOLUME 90.4 fl (81.0-99.0); MEAN CORPUSCULAR HEMOGLOBIN 30.1 pg (27.0-31.0); MEAN CORPUSCULAR HGB CONC 33.3 g/dL (33.0-37.0); RBC 3.95 Mil/uL (3.80-5.20); RED CELL DISTRIBUTION WIDTH 14.4 % (11.5-14.5); WHITE BLOOD COUNT 7.1 K/uL (4.8-10.8)
[2017-12-11] MEDS: Insulin Regular 100 units/ml SC SCH ×4 (07:15→21:19)
[2017-12-11] MEDS: Insulin NPH Human 100 Units/ml Inj SC SCH (08:35)
--- NOTE | 2017-12-11 09:08 | CP.PCM.PN ---
Subjective - Date & Time of Evaluation Date of Evaluation: 12/11/17 Time of Evaluation: 09:08 - Subjective Subjective: 67 y/o F evaluated and examined by bedside. Pt reports tolerable L hip pain that exacerbates with walking and fears for bone to bone friction. Pt states L elbow pain is much better with medication and immobility. Pt afebrile, tolerating PO, no acute events overnight. Pt feeling doubtful about MRI and Bone scan as she says Iodine contrast alter her mental status and makes her prone to fall. Pt is able to ambulate with her cane. Objective - Vital Signs/Intake and Output Vital Signs (last 24 hours): Temp Pulse Resp BP Pulse Ox 97.9 F 60 20 125/65 97 12/11/17 08:06 12/11/17 08:36 12/11/17 08:06 12/11/17 08:36 12/11/17 08:06 - Medications Medications: Current Medications Acetaminophen (Tylenol 325mg Tab) 650 mg PO Q6 PRN PRN Reason: Pain, Mild (1-3) Last Admin: 12/09/17 23:13 Dose: 650 mg Aspirin (Aspirin Chewable) 81 mg PO DAILY [facility] Last Admin: 12/10/17 08:52 Dose: 81 mg Atorvastatin Calcium (Lipitor) 40 mg PO DAILY [facility] Last Admin: 12/11/17 08:34 Dose: Not Given Clopidogrel Bisulfate (Plavix) 75 mg PO DAILY@2100 [facility] Dextrose (Dextrose 50% Inj) 0 ml IVP STAT PRN; Protocol PRN Reason: Hypoglycemia Protocol Enoxaparin Sodium (Lovenox) 40 mg SC HS [facility] PRN Reason: Protocol Glucagon (Glucagen Diagnostic Kit) 0 mg IM STAT PRN; Protocol PRN Reason: Hypoglycemia Protocol Insulin Human NPH (Humulin N) 25 units SC QAM [facility] Last Admin: 12/11/17 08:35 Dose: 25 units Insulin Human Regular (Humulin R) 0 units SC ACHS [facility] PRN Reason: Protocol Last Admin: 12/11/17 07:15 Dose: 2 u Isosorbide Mononitrate (Imdur Er) 30 mg PO DAILY [facility] Last Admin: 12/11/17 08:33 Dose: Not Given Ketorolac Tromethamine (Toradol) 30 mg IVP Q6 PRN PRN Reason: Pain, severe (8-10) Ketorolac Tromethamine (Toradol) 15 mg IVP Q6 PRN PRN Reason: Pain, moderate (4-7) Levothyroxine Sodium (Synthroid) 125 mcg PO DAILY@0630 [facility] Last Admin: 12/11/17 06:43 Dose: 125 mcg Losartan Potassium (Cozaar) 50 mg PO DAILY [facility] Last Admin: 12/11/17 08:33 Dose: Not Given Metoprolol Tartrate (Lopressor) 100 mg PO Q12 [facility] Last Admin: 12/11/17 08:36 Dose: 100 mg - Labs Labs: 12/11/17 05:55 12/11/17 05:55 - Constitutional Appears: No Acute Distress - Head Exam Head Exam: ATRAUMATIC - Eye Exam Eye Exam: EOMI - ENT Exam ENT Exam: Mucous Membranes Moist - Neck Exam Neck Exam: Full ROM - Respiratory Exam Respiratory Exam: Clear to Ausculation Bilateral, NORMAL BREATHING PATTERN - Cardiovascular Exam Cardiovascular Exam: REGULAR RHYTHM, +S1, +S2 - GI/Abdominal Exam GI & Abdominal Exam: Soft, Normal Bowel Sounds. absent: Tenderness - Extremities Exam Additional comments: L elbow in a splint, clean dry and intact, distal pulses present, SILT. L hip: ROM is at baseline. Mildly tender on groin area. Pt is able to ambulate with the assistance of a cane. - Neurological Exam Neurological Exam: Alert, Awake, Oriented x3 Assessment and Plan - Assessment and Plan (Free Text) Assessment: 67 y/o with multiple co-morbidities admitted for hypoglycemia and s/p fall. Fracture of left radial head was discovered on XR of L elbow. Plan: L radial fracture -XR L elbow: fracture of radial head. Dedicated XR films were recommended. -Orthopedic Surgery, Dr Gudino. Recommendations appreciated -MRI of L elbow for more details. -Splint placed of affected arm -Will f/u results if patient agrees to imaging. L hip pain -S/P Left THR. -Orthopedic Surgery recommendations appreciated. -Bone scan recommended. -Will f/u results if patient agrees to imaging. Fall -Pt reports tripping with an object before falling. No LOC, dizziness or weakness reported. -Fall precautions -F/U PT/OT evaluation and proposed management. IDDM -Uncontrolled, ast [id number] 9.3 on 11/23/17 -Diabetic diet -NPH 25 units every morning and 5 units of regular insulin at breakfast. CAD -Chronic, Stable -No CP -EKG and Trops neg for ischemia -C/W Home meds -Aspirin and Plavix on hold in preparation for possible surgical procedure DVT prophylaxis Enoxaparin 40mg SC on hold in preparation for possible surgical procedure.
--- NOTE | 2017-12-11 11:45 | CP.PCM.PN ---
Subjective - Date & Time of Evaluation Date of Evaluation: 12/11/17 Time of Evaluation: 11:00 - Subjective Subjective: Patient complaining of continued left hip pain, localizes to groin. She is also complaining of elbow pain. No new complaints. Yesterday patient refused MRI. Will reattempt with medication today. This am she refused bone scan. Explained to patient in detail that the next step in evaluation of her hip pain after negative xrays and CT scan would be for bone scan, and the injection is necessary for completion of exam. She again refuses. Review of Systems - Constitutional Additional comments: no fever/chills - Cardiovascular Cardiovascular: UNREMARKABLE - Respiratory Respiratory: UNREMARKABLE - Gastrointestinal Gastrointestinal: UNREMARKABLE - Musculoskeletal Musculoskeletal: As Par HPI - Integumentary Integumentary: UNREMARKABLE - Neurological Neurological: UNREMARKABLE - Hematologic/Lymphatic Hematologic: UNREMARKABLE Objective - Vital Signs/Intake and Output Vital Signs (last 24 hours): Temp Pulse Resp BP Pulse Ox 97.9 F 60 20 125/65 97 12/11/17 08:06 12/11/17 08:36 12/11/17 08:06 12/11/17 08:36 12/11/17 08:06 - Medications Medications: Current Medications Acetaminophen (Tylenol 325mg Tab) 650 mg PO Q6 PRN PRN Reason: Pain, Mild (1-3) Last Admin: 12/09/17 23:13 Dose: 650 mg Aspirin (Aspirin Chewable) 81 mg PO DAILY [facility] Last Admin: 12/10/17 08:52 Dose: 81 mg Atorvastatin Calcium (Lipitor) 40 mg PO DAILY [facility] Last Admin: 12/11/17 08:34 Dose: Not Given Clopidogrel Bisulfate (Plavix) 75 mg PO DAILY@2100 [facility] Dextrose (Dextrose 50% Inj) 0 ml IVP STAT PRN; Protocol PRN Reason: Hypoglycemia Protocol Enoxaparin Sodium (Lovenox) 40 mg SC HS [facility] PRN Reason: Protocol Glucagon (Glucagen Diagnostic Kit) 0 mg IM STAT PRN; Protocol PRN Reason: Hypoglycemia Protocol Insulin Human NPH (Humulin N) 25 units SC QAM [facility] Last Admin: 12/11/17 08:35 Dose: 25 units Insulin Human Regular (Humulin R) 0 units SC ACHS [facility] PRN Reason: Protocol Last Admin: 12/11/17 07:15 Dose: 2 u Isosorbide Mononitrate (Imdur Er) 30 mg PO DAILY [facility] Last Admin: 12/11/17 08:33 Dose: Not Given Ketorolac Tromethamine (Toradol) 30 mg IVP Q6 PRN PRN Reason: Pain, severe (8-10) Ketorolac Tromethamine (Toradol) 15 mg IVP Q6 PRN PRN Reason: Pain, moderate (4-7) Levothyroxine Sodium (Synthroid) 125 mcg PO DAILY@0630 [facility] Last Admin: 12/11/17 06:43 Dose: 125 mcg Losartan Potassium (Cozaar) 50 mg PO DAILY [facility] Last Admin: 12/11/17 08:33 Dose: Not Given Metoprolol Tartrate (Lopressor) 100 mg PO Q12 [facility] Last Admin: 12/11/17 08:36 Dose: 100 mg - Labs Labs: 12/11/17 05:55 12/11/17 05:55 - Constitutional Appears: Well, No Acute Distress (sitting on edge of hip with hips/knees flexed , comfortable) - Head Exam Head Exam: ATRAUMATIC - Neck Exam Neck Exam: Full ROM - Respiratory Exam Respiratory Exam: NORMAL BREATHING PATTERN - Cardiovascular Exam Additional comments: +DP/PT pulses - Extremities Exam Additional comments: Left hip: complains of pain in groin with hip ROM, but WNL calves soft NT neg homans sensatio intact, no swelling/discoloration/deformity LUE: splint intact +ROM fingers, sensation intact, cap refill < 2 sec - Neurological Exam Neurological Exam: Alert, Awake, Oriented x3 Neuro motor strength exam: Left Upper Extremity: 5, Left Lower Extremity: 5 - Psychiatric Exam Psychiatric exam: Normal Affect, Normal Mood - Skin Skin Exam: Dry, Intact, Normal Color, Warm Assessment and Plan (1) Fracture of radial neck, left, closed Assessment & Plan: long arm posterior splint, keep dry and intact patient refusing MRI, if patient continues to refuse, further imaging can be done as outpatient, she is appropriately immobilized at this time NWRubin TRUJILLO f/u Dr. Gudino in office in 7-10 days Status: Acute (2) Contusion of left hip Assessment & Plan: xrays and CT of hip are negative for any fracture or obvious loosening. Left hip xrays are compared to Sep 2017 imaging and there are no acute changes appreciated. bone scan as per Dr. Gudino for PT/OT evaluation for ambulation status, as xrays and CT negative for fracture will cont WBAT at this time patient refused bone scan today if patient continues to refuse imaging and is able to ambulate independently with PT, patient would be orthopedically stable for d/c and follow up as outpatient advised patient bone scan is next study that is indicated with continued hip pain and negative xrays/CT and she refused again to me d/w Dr. Gudino, agrees with above Status: Acute (3) Radial head fracture Status: Acute Radiology Interpretation - Radiology Interpretation #2 Interpretation: Patient Name / ID : JAJA MENDES / [id number] Exam Date : 12/10/2017 16:39:31 ( Approved ) Study Comment : Sex / Age : F / 67Y Creator : Rai Rodrigues MD Dictator : Rai Rodrigues MD Tare Worker : Windmill Technician : Rai Rodrigues MD Approver2 : Report Date : 12/10/2017 17:28:43 My Comment : PROCEDURE: CT left lower extremity/pelvis HISTORY: left hip contusion, h/o HARRISON COMPARISON: December 09, 2017. Plain film radiographs bilateral hips TECHNIQUE: 2.5 mm axial acquisition and display. Coronal and sagittal reconstructions. 3D volumetric reconstruction Dose report (mGy-cm): 659.67 FINDINGS: There are no osseous abnormalities to suggest fracture. The pelvic ring is intact. Satisfactory position, alignment of components left HARRISON. No evidence of hardware failure. No evidence of loosening. No acute soft tissue abnormalities identified. No visible abnormalities in the pelvis. Limitations of the current examination: Artifact related to left HARRISON. IMPRESSION: No acute findings related to/accounting for the clinical presentation. Patient Name / ID : JAJA MENDES / [id number] Exam Date : 12/10/2017 16:39:31 ( Approved ) Study Comment : Sex / Age : F / 67Y Creator : Rai Rodrigues MD Dictator : Rai Rodrigues MD Tare Worker : Windmill Technician : Rai Rodrigues MD Approver2 : Report Date : 12/10/2017 17:28:43 My Comment : PROCEDURE: CT left lower extremity/pelvis HISTORY: left hip contusion, h/o HARRISON COMPARISON: December 09, 2017. Plain film radiographs bilateral hips TECHNIQUE: 2.5 mm axial acquisition and display. Coronal and sagittal reconstructions. 3D volumetric reconstruction Dose report (mGy-cm): 659.67 FINDINGS: There are no osseous abnormalities to suggest fracture. The pelvic ring is intact. Satisfactory position, alignment of components left HARRISON. No evidence of hardware failure. No evidence of loosening. No acute soft tissue abnormalities identified. No visible abnormalities in the pelvis. Limitations of the current examination: Artifact related to left HARRISON. IMPRESSION: No acute findings related to/accounting for the clinical presentation. atient Name / ID : JAJA VAUGHN / [id number] Exam Date : 12/09/2017 17:41:02 ( Approved ) Study Comment : Sex / Age : F / 67Y Creator : Julián Brown MD Dictator : Julián Brown MD Tare Worker : Windmill Technician : Julián Brown MD Approver2 : Report Date : 12/10/2017 10:32:11 My Comment : PROCEDURE: Radiographs of the Left Forearm HISTORY: Status post fall COMPARISON: None available. TECHNIQUE: Frontal and lateral views obtained. . Note that the examination is limited due to poor patient positioning FINDINGS: BONES: There is a mildly displaced fracture of the radial head. Remaining osseous structures appear intact so far as can be seen. Apparent benign-appearing cystic changes within the navicular and triquetrum JOINT SPACES: Unremarkable. OTHER FINDINGS: None. IMPRESSION: Fracture of the radial head. . Dedicated radiographs of the left elbow recommended Note that this report was placed in PA review folder for followup
[2017-12-11 14:25] LABS: FOLATE 11.1 ng/mL
--- NOTE | 2017-12-11 14:32 | CP.PCM.PCO ---
Assessment/Plan - Assessment and Plan (Free Text) Assessment: Scan reviewed with patient- pt wanted to look at the actual scans pt stil complains of pain but pt was observed standing at bedside pt refuses MRI and bone scan and refuses any pain meds. D/w ortho await PT abe Pt says on can pick her up no steps to her home
[2017-12-12] MEDS: Levothyroxine 125 MCG TAB PO SCH (06:21)
--- NOTE | 2017-12-12 07:50 | CP.PCM.PN ---
Objective - Vital Signs/Intake and Output Vital Signs (last 24 hours): Temp Pulse Resp BP Pulse Ox 98.5 F 62 18 138/67 96 12/11/17 23:50 12/11/17 23:50 12/11/17 23:50 12/11/17 23:50 12/11/17 23:50 - Medications Medications: Current Medications Acetaminophen (Tylenol 325mg Tab) 650 mg PO Q6 PRN PRN Reason: Pain, Mild (1-3) Last Admin: 12/09/17 23:13 Dose: 650 mg Aspirin (Aspirin Chewable) 81 mg PO DAILY [facility] Last Admin: 12/10/17 08:52 Dose: 81 mg Atorvastatin Calcium (Lipitor) 40 mg PO DAILY [facility] Last Admin: 12/11/17 08:34 Dose: Not Given Clopidogrel Bisulfate (Plavix) 75 mg PO DAILY@2100 [facility] Dextrose (Dextrose 50% Inj) 0 ml IVP STAT PRN; Protocol PRN Reason: Hypoglycemia Protocol Enoxaparin Sodium (Lovenox) 40 mg SC HS [facility] PRN Reason: Protocol Glucagon (Glucagen Diagnostic Kit) 0 mg IM STAT PRN; Protocol PRN Reason: Hypoglycemia Protocol Insulin Human NPH (Humulin N) 25 units SC QAM [facility] Last Admin: 12/11/17 08:35 Dose: 25 units Insulin Human Regular (Humulin R) 0 units SC [facility] PRN Reason: Protocol Last Admin: 12/11/17 21:19 Dose: Not Given Isosorbide Mononitrate (Imdur Er) 30 mg PO DAILY [facility] Last Admin: 12/11/17 08:33 Dose: Not Given Ketorolac Tromethamine (Toradol) 30 mg IVP Q6 PRN PRN Reason: Pain, severe (8-10) Ketorolac Tromethamine (Toradol) 15 mg IVP Q6 PRN PRN Reason: Pain, moderate (4-7) Levothyroxine Sodium (Synthroid) 125 mcg PO DAILY@0630 [facility] Last Admin: 12/12/17 06:21 Dose: 125 mcg Losartan Potassium (Cozaar) 50 mg PO DAILY [facility] Last Admin: 12/11/17 08:33 Dose: Not Given Metoprolol Tartrate (Lopressor) 100 mg PO Q12 [facility] Last Admin: 12/11/17 21:07 Dose: 100 mg - Labs Labs: 12/11/17 05:55 12/11/17 05:55
[2017-12-12 08:02] VITALS: BP 139/74; RESP 20; TEMP 98
[2017-12-12] MEDS: Insulin Regular 100 units/ml SC SCH ×2 (08:12→12:47)
[2017-12-12] MEDS: Insulin NPH Human 100 Units/ml Inj SC SCH (08:13)
--- NOTE | 2017-12-12 10:56 | CP.PCM.PN ---
Subjective - Date & Time of Evaluation Date of Evaluation: 12/12/17 Time of Evaluation: 10:50 - Subjective Subjective: S- pt with persistent L hip discomfort, though she has been OOB without difficulty; elbow impoved Objective - Vital Signs/Intake and Output Vital Signs (last 24 hours): Temp Pulse Resp BP Pulse Ox 98 F 62 20 139/74 96 12/12/17 08:02 12/12/17 08:18 12/12/17 08:02 12/12/17 08:18 12/12/17 08:02 - Medications Medications: Current Medications Acetaminophen (Tylenol 325mg Tab) 650 mg PO Q6 PRN PRN Reason: Pain, Mild (1-3) Last Admin: 12/09/17 23:13 Dose: 650 mg Aspirin (Aspirin Chewable) 81 mg PO DAILY [facility] Last Admin: 12/10/17 08:52 Dose: 81 mg Atorvastatin Calcium (Lipitor) 40 mg PO DAILY [facility] Last Admin: 12/12/17 10:45 Dose: Not Given Clopidogrel Bisulfate (Plavix) 75 mg PO DAILY@2100 [facility] Dextrose (Dextrose 50% Inj) 0 ml IVP STAT PRN; Protocol PRN Reason: Hypoglycemia Protocol Enoxaparin Sodium (Lovenox) 40 mg SC HS [facility] PRN Reason: Protocol Glucagon (Glucagen Diagnostic Kit) 0 mg IM STAT PRN; Protocol PRN Reason: Hypoglycemia Protocol Insulin Human NPH (Humulin N) 25 units SC QAM [facility] Last Admin: 12/12/17 08:13 Dose: 25 units Insulin Human Regular (Humulin R) 0 units SC ACHS [facility] PRN Reason: Protocol Last Admin: 12/12/17 08:12 Dose: Not Given Isosorbide Mononitrate (Imdur Er) 30 mg PO DAILY [facility] Last Admin: 12/12/17 10:45 Dose: Not Given Ketorolac Tromethamine (Toradol) 30 mg IVP Q6 PRN PRN Reason: Pain, severe (8-10) Ketorolac Tromethamine (Toradol) 15 mg IVP Q6 PRN PRN Reason: Pain, moderate (4-7) Levothyroxine Sodium (Synthroid) 125 mcg PO DAILY@0630 [facility] Last Admin: 12/12/17 06:21 Dose: 125 mcg Losartan Potassium (Cozaar) 50 mg PO DAILY [facility] Last Admin: 12/12/17 10:45 Dose: Not Given Metoprolol Tartrate (Lopressor) 100 mg PO Q12 [facility] Last Admin: 12/12/17 08:18 Dose: 100 mg - Labs Labs: 12/11/17 05:55 12/11/17 05:55 - Additional Findings Additional findings: Musculoskekltal pt OOB with minimal diffciulty, although she articualtes pain L hip pt with lumbosacral scoliosis ROM hip restricted Elbow discomfort improved CT- revals vertical position of acetabular component Elbow MRI pending - r/o radial heAD FX Assessment and Plan - Assessment and Plan (Free Text) Assessment: a- MULTIPLE TRAUMA: s/p THR with vertical position of acetabular component P orthopediclaly stable- pt refusing bone scan would rtreat hip conservatively- activity modification/physio
[2017-12-12 12:28] VITALS: PULSE 60; O2SAT 97
--- NOTE | 2017-12-12 13:50 | CP.PCM.DIS ---
Provider - Provider Date of Admission: 12/09/17 17:57 Attending physician: Tina Cornejo MD Time Spent in preparation of Discharge (in minutes): 25 Diagnosis - Discharge Diagnosis (1) Fracture of radial neck, left, closed Status: Acute Hospital Course - Lab Results Lab Results: Micro Results 12/09/17 07:48 Urine,Clean Catch Urine Culture - Final No Growth (<1,000 CFU/ML) Most Recent Lab Values WBC 7.1 K/uL (4.8-10.8) 12/11/17 05:55 RBC 3.95 Mil/uL (3.80-5.20) 12/11/17 05:55 Hgb 11.9 g/dL (12.0-16.0) L 12/11/17 05:55 Hct 35.7 % (34.0-47.0) 12/11/17 05:55 MCV 90.4 fl (81.0-99.0) 12/11/17 05:55 MCH 30.1 pg (27.0-31.0) 12/11/17 05:55 MCHC 33.3 g/dL (33.0-37.0) 12/11/17 05:55 RDW 14.4 % (11.5-14.5) 12/11/17 05:55 Plt Count 261 K/uL (130-400) 12/11/17 05:55 MPV 9.7 fl (7.2-11.7) 12/10/17 05:50 Neut % (Auto) 74.8 % (50.0-75.0) 12/10/17 05:50 Lymph % (Auto) 17.6 % (20.0-40.0) L 12/10/17 05:50 [place] % (Auto) 5.1 % (0.0-10.0) 12/10/17 05:50 Eos % (Auto) 1.6 % (0.0-4.0) 12/10/17 05:50 Baso % (Auto) 0.9 % (0.0-2.0) 12/10/17 05:50 Neut # (Auto) 6.3 K/uL (1.8-7.0) 12/10/17 05:50 Lymph # (Auto) 1.5 K/uL (1.0-4.3) 12/10/17 05:50 [place] # (Auto) 0.4 K/uL (0.0-0.8) 12/10/17 05:50 Eos # (Auto) 0.1 K/uL (0.0-0.7) 12/10/17 05:50 Baso # (Auto) 0.1 K/uL (0.0-0.2) 12/10/17 05:50 Sodium 139 mmol/l (132-148) 12/11/17 05:55 Potassium 4.3 MMOL/L (3.6-5.0) 12/11/17 05:55 Chloride 101 mmol/L (98-107) 12/11/17 05:55 Carbon Dioxide 27 mmol/L (22-30) 12/11/17 05:55 Anion Gap 15 (10-20) 12/11/17 05:55 BUN 18 mg/dl (7-17) H 12/11/17 05:55 Creatinine 0.6 mg/dl (0.7-1.2) L 12/11/17 05:55 Est GFR ( Amer) > 60 12/11/17 05:55 Est GFR (Non-Af Amer) > 60 12/11/17 05:55 POC Glucose (mg/dL) 358 mg/dL (65-110) H 12/12/17 11:27 Random Glucose 192 mg/dL (65-105) H 12/11/17 05:55 Calcium 9.7 mg/dL (8.4-10.2) 12/11/17 05:55 Total Bilirubin 0.5 mg/dl (0.2-1.3) 12/11/17 05:55 AST 24 U/L (14-36) 12/11/17 05:55 ALT 25 U/L (9-52) 12/11/17 05:55 Alkaline Phosphatase 103 U/L (38-126) 12/11/17 05:55 Troponin I < 0.0120 ng/mL (0.00-0.120) 12/09/17 15:28 Total Protein 7.1 G/DL (6.3-8.2) 12/11/17 05:55 Albumin 3.7 g/dL (3.5-5.0) 12/11/17 05:55 Globulin 3.4 gm/dL (2.2-3.9) 12/11/17 05:55 Albumin/Globulin Ratio 1.1 (1.0-2.1) 12/11/17 05:55 Vitamin B12 445 pg/mL (239-931) 12/11/17 05:55 Folate 11.1 ng/mL 12/11/17 05:55 TSH 3rd Generation 6.09 mIU/ML (0.46-4.68) H 12/11/17 05:55 Prolactin 22.0 ng/mL (3.0-18.9) H 12/11/17 05:55 Urine Color Yellow (YELLOW) 12/10/17 03:30 Urine Clarity Slighty-cloudy (Clear) 12/10/17 03:30 Urine pH 7.0 (5.0-8.0) 12/10/17 03:30 Ur Specific [place] 1.012 (1.003-1.030) 12/10/17 03:30 Urine Protein Negative mg/dL (NEGATIVE) 12/10/17 03:30 Urine Glucose (UA) Neg mg/dL (Normal) 12/10/17 03:30 Urine Ketones Negative mg/dL (NEGATIVE) 12/10/17 03:30 Urine Blood Negative (NEGATIVE) 12/10/17 03:30 Urine Nitrate Negative (NEGATIVE) 12/10/17 03:30 Urine Bilirubin Negative (NEGATIVE) 12/10/17 03:30 Urine Urobilinogen 0.2-1.0 mg/dL (0.2-1.0) 12/10/17 03:30 Ur Leukocyte Esterase Neg Mariely/uL (Negative) 12/10/17 03:30 Urine RBC (Auto) < 1 /hpf (0-3) 12/10/17 03:30 Urine Microscopic WBC 1 /hpf (0-5) 12/10/17 03:30 Ur Squamous Epith Cells 3 /hpf (0-5) 12/10/17 03:30 Urine Bacteria Rare (<OCC) 12/10/17 03:30 - Hospital Course Hospital Course: 67 yo F w PMHx of CAD s/p Stent x 2, IDDM, Hypothyroidism, S/P Left THR, and noncompliant w medications. Presented to ED s/ fall after tripping while walking outdoors. XR L elbow showed fracture of radial neck. Will follow up MRI left elbow. Seen by Orthopedic Surgery, Dr Gudino. Discharge Exam - Additional Findings Additional findings: - Constitutional Appears: No Acute Distress - Eye Exam Eye Exam: EOMI - ENT Exam ENT Exam: Mucous Membranes Moist - Respiratory Exam Respiratory Exam: Clear to Ausculation Bilateral, NORMAL BREATHING PATTERN - Cardiovascular Exam Cardiovascular Exam: REGULAR RHYTHM, +S1, +S2 - GI/Abdominal Exam GI & Abdominal Exam: Soft, Normal Bowel Sounds. absent: Tenderness - Extremities Exam Additional comments: L elbow in a splint, clean dry and intact, distal pulses present, L hip: ROM is at baseline. Mildly tender on groin area. Pt is able to ambulate with the assistance of a cane. - Neurological Exam Neurological Exam: Alert, Awake, Oriented x3 Discharge Plan - Follow Up Plan Condition: GOOD Disposition: HOME/ ROUTINE Instructions: Low Blood Sugar in People With Diabetes, Preventing Falls Additional Instructions: follow up with primary MD 7-10 days follow up with Orthopedist Dr Medina ER precautions discussed Referrals: [facility] [place] [Outside] Guanakito Gudino III, MD [Staff Provider] -
--- NOTE | 2017-12-14 09:25 | MRI ---
MRI left elbow History: Radial head fracture. Comparison: X-ray dated 12/10/2017 Technique: Multi-echo multiplanar sequences were performed through the left elbow without the use of intravenous contrast. Findings: Curvilinear signal abnormality seen at the anterior aspect of the radial head measuring approximately 1.2 x 0.4 centimeters demonstrating curvilinear decreased T1 signal and increased STIR signal suggestive for subchondral osseous injury/subchondral fracturing versus bone brusing versus additional etiology. Clinical correlation. Corresponding signal abnormality seen within the mid to posterior capitellum measuring up to 9.8 millimeters demonstrating curvilinear decreased T1 signal and increased STIR signal with reactive edema also suggestive for subchondral osseous injury and or subchondral fracturing versus bone bruising versus additional etiology. Large suprapatellar joint effusion. Mild fraying with increased signal seen at the proximal attachment of the radial collateral ligament suggestive for a low grade sprain. Thickening and fraying with increased signal seen at the proximal attachment of the lateral ulnar collateral ligament suggestive for a moderate to high-grade sprain and / or partial tear. Thickening with increased signal seen at the proximal attachment of the common extensor tendon also suggestive for a moderate to high-grade sprain and / or partial tear. Common flexor tendon appears preserved. Mild increased signal seen at proximal attachment of the ulnar collateral ligament suggestive for a low grade sprain. Within the medial cortex of the proximal tibia, at the insertion of the biceps tendon, there is lobulated intensity signal foci measuring 9.5 millimeters suggestive for subchondral cyst formation and or intraosseous ganglion formation. Adjacent low grade sprain of the biceps tendon insertion with fluid in the distal biceps tendon. Brachialis tendon insertion appears preserved. Mild insertional tendinopathy of triceps tendon on the posterior olecranon. Reticulation and edema within the circumferential subcutaneous soft tissues. Impression: 1. Curvilinear signal abnormality seen at the anterior aspect of the radial head measuring approximately 1.2 x 0.4 centimeters demonstrating curvilinear decreased T1 signal and increased STIR signal suggestive for subchondral osseous injury/subchondral fracturing versus bone brusing versus additional etiology. Clinical correlation. 2. Corresponding signal abnormality seen within the mid to posterior capitellum measuring up to 9.8 millimeters demonstrating curvilinear decreased T1 signal and increased STIR signal with reactive edema also suggestive for subchondral osseous injury and or subchondral fracturing versus bone bruising versus additional etiology. 3. Large suprapatellar joint effusion. 4. Mild fraying with increased signal seen at the proximal attachment of the radial collateral ligament suggestive for a low grade sprain. 5. Thickening and fraying with increased signal seen at the proximal attachment of the lateral ulnar collateral ligament suggestive for a moderate to high-grade sprain and / or partial tear. 6. Thickening with increased signal seen at the proximal attachment of the common extensor tendon also suggestive for a moderate to high-grade sprain and / or partial tear. 7. Mild increased signal seen at proximal attachment of the ulnar collateral ligament suggestive for a low grade sprain. 8. Within the medial cortex of the proximal tibia, at the insertion of the biceps tendon, there is lobulated intensity signal foci measuring 9.5 millimeters suggestive for subchondral cyst formation and or intraosseous ganglion formation. Adjacent low grade sprain of the biceps tendon insertion with fluid in the distal biceps tendon. 9. Mild insertional tendinopathy of triceps tendon on the posterior olecranon. 10. Reticulation and edema within the circumferential subcutaneous soft tissues. These findings were preliminarily reported at 10:13 a.m. on 12/12/[address] Franki Roman from [facility].
== END 2017-12-12 13:11 | disposition home or self-care (01) ==
LOC: H.ER 14:49 → H.ERHOLD 17:57 → H.MEDSURG1 20:27
PROVIDERS: ADMIT Family Medicine Geriatric Medicine; ATTEND Family Medicine Geriatric Medicine
DX: S52.132A Displaced fracture of neck of left radius, initial encounter for closed fracture (principal); M25.552 Pain in left hip; M25.522 Pain in left elbow; E11.9 Type 2 diabetes mellitus without complications; E03.9 Hypothyroidism, unspecified; I25.10 Atherosclerotic heart disease of native coronary artery without angina pectoris; Y92.488 Other paved roadways as the place of occurrence of the external cause; Z87.01 Personal history of pneumonia (recurrent); F41.8 Other specified anxiety disorders; J45.909 Unspecified asthma, uncomplicated; I10 Essential (primary) hypertension; E11.649 Type 2 diabetes mellitus with hypoglycemia without coma; H91.90 Unspecified hearing loss, unspecified ear; S70.02XA Contusion of left hip, initial encounter; W01.0XXA Fall on same level from slipping, tripping and stumbling without subsequent striking against object, initial encounter; Z79.02 Long term (current) use of antithrombotics/antiplatelets; Z53.20 Procedure and treatment not carried out because of patient's decision for unspecified reasons; Z79.4 Long term (current) use of insulin; Z87.891 Personal history of nicotine dependence; Z91.14 Patient's other noncompliance with medication regimen; Z95.5 Presence of coronary angioplasty implant and graft; Z96.642 Presence of left artificial hip joint
CPT/HCPCS: 36415; 73080; 73090; 73221; 73521; 73700; 80053; 81003; 82607; 82746; 82948; 84146; 84443; 84484; 85025; 85027; 87086; 96374; 96375; 97116; 97162; 97166; 97530; 99285; G0378; G8978; G8979; G8987; G8988; J2270

== ENCOUNTER 2018-06-26 13:06 | Observation (INO) | payer MEDICARE, OTHER ==
[2018-06-26 13:06] VITALS: BMI 29.5
--- NOTE | 2018-06-26 14:07 | ED PDOC ---
Syncope/Near Syncope/Dizziness Time Seen by Provider: 06/26/18 13:32 Chief Complaint (Nursing): Syncope Chief Complaint (Provider): Syncope History Per: Patient History/Exam Limitations: no limitations Onset/Duration Of Symptoms: Other (x2 weeks) Current Symptoms Are (Timing): Still Present Additional Complaint(s): 68 year old female presents to the ED via EMS complaining of not feeling well for the past 2 weeks. Patient reports intermittent epigastric pain, chest pain, and left arm weakness. Today patient was walking to the grocery store when everything felt worse. She states she felt everything was rose and she fell to the ground. Denies LOC. Patient is asymptomatic at this time. PMD: Ana Paula Escalona NIHSS Stroke Scale - Date/Time Evaluation Performed Date Performed: 06/26/18 Time Performed: 13:32 When Was NIHSS Performed: Baseline - How Severe is the Stroke Level of Consciousness: 0=Alert LOC to Questions: 0=Both comments correct LOC to commands: 0=Obeys both correctly Best Gaze: 0=Normal Visual: 0=No visual loss Facial: 0=Normal Motor Arm - Left: 0=No drift Motor Arm - Right: 0=No drift Motor Leg - Left: 0=No drift Motor Leg - Right: 0=No drift Limb Ataxia: 0=Absent Sensory: 0=Normal Best Language: 0=No aphasia Dysarthia: 0=Normal articulation Extinction & Inattention (Neglect): 0=Normal, no object Score: 0 Past Medical History Reviewed: Historical Data, Nursing Documentation, Vital Signs Vital Signs: Last Vital Signs Temp 98.5 F 06/26/18 13:26 Pulse 69 06/26/18 13:26 Resp 18 06/26/18 13:26 BP 156/81 H 06/26/18 13:26 Pulse Ox 100 06/26/18 13:26 - Medical History PMH: Anxiety, Asthma, CAD (with stent), Depression, Diabetes, HTN, Hypothyroidi sm, Pneumonia, Seizures (known seizure and does not take any meds for it) Denies: HIV, Chronic Kidney Disease - Surgical History Surgical History: Coronary Stent - Family History Family History: States: Unknown Family Hx - Immunization History Hx Tetanus Toxoid Vaccination: No Hx Influenza Vaccination: No Hx Pneumococcal Vaccination: No - Home Medications Home Medications: Ambulatory Orders Medication Instructions Recorded Insulin Human Regular [Novolin R] 2 unit SC DIN 08/29/16 Insulin Human Regular [Novolin R] 5 unit SC BRK 08/29/16 Insulin Human NPH [Humulin N] 25 unit SC QAM 10/16/17 Aspirin [Aspirin Chewable] 81 mg PO DAILY #30 chew 11/25/17 Atorvastatin [Lipitor] 40 mg PO DAILY #30 tab 11/25/17 Cholecalciferol (Vitamin D3) 2,000 unit PO DAILY #30 capsule 11/25/17 [Vitamin D3] Clopidogrel [Plavix] 75 mg PO DAILY #30 tab 11/25/17 Isosorbide Mononitrate ER [Imdur 30 mg PO DAILY #30 tab 11/25/17 ER] Levothyroxine [Synthroid] 125 mcg PO DAILY@0630 #30 tab 11/25/17 Losartan [Cozaar] 50 mg PO DAILY #30 tab 11/25/17 Metoprolol Tartrate [Lopressor] 100 mg PO Q12 #60 tab 11/25/17 Levothyroxine [Synthroid] 125 mcg PO DAILY@0630 tab 12/12/17 - Allergies Allergies/Adverse Reactions: Allergies Allergy/AdvReac Type Severity Reaction Status Date / Time iodine Allergy DIZZINESS Verified 06/26/18 13:23 Penicillins Allergy RASH Verified 06/26/18 13:23 Review of Systems ROS Statement: Except As Marked, All Systems Reviewed And Found Negative Cardiovascular: Positive for: Chest Pain Gastrointestinal: Positive for: Abdominal Pain (epigastric pain) Neurological: Positive for: Weakness (left arm). Negative for: Other (LOC) Physical Exam - Reviewed Nursing Documentation Reviewed: Yes Vital Signs Reviewed: Yes - Physical Exam Appears: Positive for: Non-toxic, No Acute Distress Head Exam: Positive for: ATRAUMATIC, NORMOCEPHALIC Skin: Positive for: Normal Color, Warm, Dry Eye Exam: Positive for: Normal appearance Neck: Positive for: Normal, Painless ROM Cardiovascular/Chest: Positive for: Regular Rate, Rhythm. Negative for: Murmur Respiratory: Positive for: Normal Breath Sounds. Negative for: Wheezing, Respiratory Distress Extremity: Positive for: Normal ROM Neurologic/Psych: Positive for: Alert, Oriented. Negative for: Motor/Sensory Deficits - Laboratory Results Result Diagrams: 06/26/18 14:13 06/26/18 14:13 - ECG O2 Sat by Pulse Oximetry: 100 (RA) Pulse Ox Interpretation: Normal Medical Decision Making Medical Decision Making: Initial Impression: Near syncope, chest pain, intermittent left arm weakness Initial Plan: --CT Head --ECg --CMP --Lipase --Magnesium stat --Phosphorous stat --Troponin stat --ED urine dipstick --CBC --PTT --Prothrombin time --Chest X-ray --Glucose --Urinalysis Last took Plavix one week ago, noncompliant with ASA. Pt refused Insulin. ------- Scribe Attestation: Documented by Lauri Mora acting as a scribe for Yane Arredondo MD. Provider Scribe Attestation: All medical record entries made by the Scribe were at my direction and personally dictated by me. I have reviewed the chart and agree that the record accurately reflects my personal performance of the history, physical exam, medical decision making, and the department course for this patient. I have also personally directed, reviewed, and agree with the discharge instructions and disposition. Disposition - Clinical Impression Clinical Impression: Near syncope, Chest pain - Patient ED Disposition Is Patient to be Admitted: Yes - Disposition Disposition Time: 15:53 Condition: STABLE Forms: [employer] (Lao) - Pt Status Changed To: Hospital Disposition Of: Observation - POA Present On Arrival: Poor Glycemic Control
[2018-06-26 14:16] LABS: BASO # 0.1 K/uL (0.0-0.2); BASO % 1.2 % (0.0-2.0); EOS # 0.1 K/uL (0.0-0.7); HEMOGLOBIN 12.5 g/dL (12.0-16.0); LYMPH # 1.1 K/uL (1.0-4.3); LYMPH % 18.2 % (20.0-40.0); MEAN CELL VOLUME 91.4 fl (81.0-99.0); MEAN CORPUSCULAR HEMOGLOBIN 30.3 pg (27.0-31.0); MEAN CORPUSCULAR HGB CONC 33.1 g/dL (33.0-37.0); MEAN PLATELET VOLUME 9.3 fl (7.2-11.7); MONO # 0.3 K/uL (0.0-0.8); MONO % 5.2 % (0.0-10.0); NEUT # 4.5 K/uL (1.8-7.0); NEUT % 74.4 % (50.0-75.0); RBC 4.13 Mil/uL (3.80-5.20); RED CELL DISTRIBUTION WIDTH 14.3 % (11.5-14.5)
[2018-06-26 14:28] LABS: PROTHROMBIN TIME 11.3 Seconds (9.8-13.1)
[2018-06-26 14:31] LABS: PARTIAL THROMBOPLASTIN TIME 32.2 Seconds (25.6-37.1)
[2018-06-26 14:32] LABS: ALB/GLOB RATIO 1.4 (1.0-2.1); ALBUMIN 4.3 g/dL (3.5-5.0); ALT/SGPT 32 U/L (9-52); AST/SGOT 30 U/L (14-36); BLOOD UREA NITROGEN 15 mg/dl (7-17); CALCIUM 10.1 mg/dL (8.4-10.2); GFR NON-AFRICAN AMERICAN > 60; LIPASE 22 U/L (23-300)
--- NOTE | 2018-06-26 14:46 | CT ---
Date of service: 06/26/2018 PROCEDURE: CT HEAD WITHOUT CONTRAST. HISTORY: Intermittent L arm weakness COMPARISON: Noncontrast head CT 11/22/2017. TECHNIQUE: Axial computed tomography images were obtained through the head/brain without intravenous contrast. Radiation dose: Total exam DLP = 1264.93 mGy-cm. This CT exam was performed using one or more of the following dose reduction techniques: Automated exposure control, adjustment of the mA and/or kV according to patient size, and/or use of iterative reconstruction technique. FINDINGS: HEMORRHAGE: No intracranial hemorrhage. BRAIN: The rose-white matter differentiation is well preserved. There is no mass effect or definitive edema pattern appreciated including the cortex. There is mild proportional expansion of the ventriculosulcal and cisternal spaces however in a pattern most compatible with diffuse cerebral atrophy. No suspicious extra-axial fluid collection is identified in the midline brain anatomy appears grossly nonfocal as imaged. VENTRICLES: Unremarkable. No hydrocephalus. CALVARIUM: No destructive bony lesion or displaced fracture identified including through the skullbase. Note is made of partially calcified atherosclerosis of the bilateral cavernous internal carotid artery segments. PARANASAL SINUSES: Unremarkable as visualized. No significant inflammatory changes. MASTOID AIR CELLS: Unremarkable as visualized. No inflammatory changes. OTHER FINDINGS: None. IMPRESSION: Stable mild diffuse cerebral atrophy, age appropriate. No interval acute intracranial findings as discussed above. Follow-up CT or MRI are available if clinically warranted.
[2018-06-26] MEDS ORDERED: Insulin Regular 100 units/ml IV ONE (15:02)
[2018-06-26] MEDS ORDERED: Insulin Regular 100 units/ml ONE (15:34)
--- NOTE | 2018-06-26 15:42 | RAD ---
Date of service: 06/26/2018 HISTORY: CP COMPARISON: No prior. FINDINGS: LUNGS: No active pulmonary disease. PLEURA: No significant pleural effusion identified, no pneumothorax apparent. CARDIOVASCULAR: No aortic atherosclerotic calcification present. Borderline cardiomegaly reiterated. No pulmonary vascular congestion. OSSEOUS STRUCTURES: No significant abnormalities. VISUALIZED UPPER ABDOMEN: Normal. OTHER FINDINGS: None. IMPRESSION: No interval acute cardiopulmonary disease appreciated. Borderline cardiomegaly unchanged.
--- NOTE | 2018-06-26 17:18 | CP.PCM.HP ---
History of Present Illness - History of Present Illness History of Present Illness: HPI: 68 y/o female with hx of HTN, IDDM, CAD s/p drug eluting stent x2 in 11/2017 (Dr. Frost) presents to ED with complaints of chest pain. Describes "not feeling well" early this morning and later in the day when she went to the grocery store, she began feeling abdominal discomfort, chest pain, left arm numbness and dizziness. She describes the pain as pressure like and associated lightheadedness and palpitations. She reports that she "almost passed out" but denies any loc. States that for the past few months, she noticed that she would have similar symptoms that would resolved upon taking ASA but 2 weeks ago she decided not to take ASA or Plavix as it made her feel bloated in the face and sick. She denies any recent illness, cough, sob, N/V/D, Dysuria. Last BM today. States she ate breakfast this morning. PMD: Dr. Kwon, [place] PMHX: IDDM, HTN, HLD, Osteoarthritis, Hypothyroidism, CAD s/p drug eluting stent x2 in 11/2017, Hx of seizures (not on medication, controlled) Meds: see med list Allergies: Penicillin, Iodine SurgHx: C section, THR (Right Hip 12/2017) FM Hx: Mother- Alzeihmers, Father-CHF, Brother-Asthma Social: Lives alone, denies smoking (smoked occassionally in the past), denies illicit drug use, questionable psych hx vs personality disorder ED Course: Vitals: T 98.5, HR 69, BP 156/81, RR 18, O2 sat 100 on rm air CBC, CMP, Mh, Phos wnl Lipase wnl Troponin x1 0.0240 Accucheck: 338 EKG: NSR, no ischemic changes Head CT- no acute changes Cxray- no acute findings ED Interventions: S/P ASA 325mg S/P Plavix 75mg S/P Insulin 8units Present on Admission - Present on Admission Any Indicators Present on Admission: No Review of Systems - Constitutional Constitutional: absent: Fever - Cardiovascular Cardiovascular: absent: Dyspnea on Exertion, Leg Edema - Respiratory Respiratory: absent: Cough Past Patient History - Infectious Disease Hx of Infectious Diseases: None - Past Medical History & Family History Past Medical History?: Yes - Past Social History Smoking Status: Never Smoked - CARDIAC Hx Hypertension: Yes - PULMONARY Hx Asthma: Yes Hx Pneumonia: Yes - NEUROLOGICAL Hx Seizures: Yes (known seizure and does not take any meds for it) - HEENT Hx HEENT Problems: Yes Hx Deafness: Yes (huslia on left) - RENAL Hx Chronic Kidney Disease: No - ENDOCRINE/METABOLIC Hx Hypothyroidism: Yes - HEMATOLOGICAL/ONCOLOGICAL Hx Human Immunodeficiency Virus (HIV): No - INTEGUMENTARY Hx Dermatological Problems: No - MUSCULOSKELETAL/RHEUMATOLOGICAL Hx Musculoskeletal Disorders: Yes 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) - GASTROINTESTINAL Hx Gastrointestinal Disorders: No - GENITOURINARY/GYNECOLOGICAL Hx Genitourinary Disorders: No - PSYCHIATRIC Hx Anxiety: Yes Hx Depression: Yes - SURGICAL HISTORY Hx Coronary Stent: Yes - ANESTHESIA Hx Anesthesia: Yes Hx Anesthesia Reactions: No Hx Malignant Hyperthermia: No Meds Allergies/Adverse Reactions: Allergies Allergy/AdvReac Type Severity Reaction Status Date / Time iodine Allergy DIZZINESS Verified 06/26/18 13:23 Penicillins Allergy RASH Verified 06/26/18 13:23 Physical Exam - Constitutional Appears: No Acute Distress - Head Exam Head Exam: NORMAL INSPECTION - Eye Exam Eye Exam: Normal appearance - ENT Exam ENT Exam: Mucous Membranes Moist - Respiratory Exam Respiratory Exam: Clear to Auscultation Bilateral. absent: Rales, Wheezes - Cardiovascular Exam Cardiovascular Exam: REGULAR RHYTHM, +S1, +S2. absent: Systolic Murmur - GI/Abdominal Exam GI & Abdominal Exam: Normal Bowel Sounds, Soft. absent: Tenderness - Extremities Exam Extremities exam: Positive for: normal inspection. Negative for: pedal edema - Neurological Exam Neurological exam: Alert (Anxious appearing) - Psychiatric Exam Psychiatric exam: Normal Affect - Skin Skin Exam: Normal Color Results - Vital Signs Recent Vital Signs: Last Vital Signs Temp 98.5 F 06/26/18 13:26 Pulse 69 06/26/18 13:26 Resp 18 06/26/18 13:26 BP 156/81 H 06/26/18 13:26 Pulse Ox 100 06/26/18 15:53 - Labs Result Diagrams: 06/26/18 14:13 06/26/18 14:13 Labs: Laboratory Results - last 24 hr 06/26/18 06/26/18 06/26/18 13:36 14:13 14:13 WBC 6.0 RBC 4.13 Hgb 12.5 Hct 37.8 MCV 91.4 MCH 30.3 MCHC 33.1 RDW 14.3 Plt Count 257 MPV 9.3 Neut % (Auto) 74.4 Lymph % (Auto) 18.2 L [place] % (Auto) 5.2 Eos % (Auto) 1.0 Baso % (Auto) 1.2 Neut # (Auto) 4.5 Lymph # (Auto) 1.1 [place] # (Auto) 0.3 Eos # (Auto) 0.1 Baso # (Auto) 0.1 PT INR APTT Sodium Potassium Chloride Carbon Dioxide Anion Gap BUN Creatinine Est GFR ( Amer) Est GFR (Non-Af Amer) POC Glucose (mg/dL) 348 H Random Glucose Calcium Phosphorus 2.8 Magnesium 2.0 Total Bilirubin AST ALT Alkaline Phosphatase Troponin I Total Protein Albumin Globulin Albumin/Globulin Ratio Lipase 06/26/18 06/26/18 06/26/18 14:13 14:13 16:45 WBC RBC Hgb Hct MCV MCH MCHC RDW Plt Count MPV Neut % (Auto) Lymph % (Auto) [place] % (Auto) Eos % (Auto) Baso % (Auto) Neut # (Auto) Lymph # (Auto) [place] # (Auto) Eos # (Auto) Baso # (Auto) PT 11.3 INR 1.0 APTT 32.2 Sodium 137 Potassium 4.6 Chloride 104 Carbon Dioxide 27 Anion Gap 11 BUN 15 Creatinine 0.6 L Est GFR ( Amer) > 60 Est GFR (Non-Af Amer) > 60 POC Glucose (mg/dL) 191 H Random Glucose 338 H Calcium 10.1 Phosphorus Magnesium Total Bilirubin 0.3 AST 30 ALT 32 Alkaline Phosphatase 121 Troponin I 0.0240 Total Protein 7.4 Albumin 4.3 Globulin 3.1 Albumin/Globulin Ratio 1.4 Lipase 22 L Assessment & Plan - Assessment and Plan (Free Text) Assessment: 68 y/o female with hx of HTN, IDDM, CAD s/p drug eluting stent x2 in 11/2017 (Dr. Frost) admitted for chest pain r/o ACS. #Chest pain -High risk for restenosis of stent in setting of medication on compliance -Troponin x1 negative; follow serial troponins -Metorpolol Tartrate 100mg po daily - Repeat EKG in am - S/P ASA and Plavix in ED - Nitro SL prn #Abdominal Pain -May be gastritis/GERD vs Cardiac -Pepcid ordered #IDDM - Chronic - Uncontrolled - Last HGbA1c 9.3 on 11/23/17 - As per patient she is Type 1 - On NPH 25 units AM and regular insulin with meals - Diabetic diet #HTN -resume home medications: Losartan 50mg #Hypothyroidism -resume Levothyroxine #DVT ppx - SCD for now Discussed case with Dr. Sam
[2018-06-26] MEDS ORDERED: Glucagon Recombinant 1 mg Inj IM PRN (17:29)
[2018-06-26] MEDS ORDERED: Dextrose 50% SYRINGE Inj (50 ml) IV PRN (17:29)
--- NOTE | 2018-06-26 22:41 | CARD ---
APPROVED REPORT Date of service: 06/26/2018 EKG Measurement Heart [id number] <Conclusion> Normal sinus rhythm Normal ECG
[2018-06-27 00:57] VITALS: RESP 18; O2SAT 100
[2018-06-27] MEDS ORDERED: Levothyroxine 125 MCG TAB PO SCH (06:30)
[2018-06-27 07:12] LABS: URINE BILIRUBIN NEGATIVE (NEGATIVE); URINE BLOOD NEGATIVE (NEGATIVE); URINE CLARITY CLEAR (Clear); URINE COLOR STRAW (YELLOW); URINE GLUCOSE (UA) 150 mg/dL (Normal); URINE LEUKOCYTE ESTERASE NEG Leu/uL (Negative); URINE PROTEIN NEGATIVE (NEGATIVE); URINE UROBILINOGEN 0.2-1.0 mg/dL (0.2-1.0)
[2018-06-27] MEDS ORDERED: Pantoprazole 40 mg EC Tab PO SCH (08:08)
[2018-06-27 08:19] VITALS: BP 141/62; TEMP 98.4
[2018-06-27] MEDS ORDERED: Insulin NPH Human 100 Units/ml Inj SC SCH (09:00)
[2018-06-27] MEDS ORDERED: Cholecalciferol 1,000 INTLU TAB PO SCH (09:00)
[2018-06-27 10:17] VITALS: PULSE 54
--- NOTE | 2018-06-27 10:52 | CP.PCM.DIS ---
Provider - Provider Date of Admission: 06/26/18 15:50 Attending physician: Farzana Sam MD Time Spent in preparation of Discharge (in minutes): 20 Diagnosis - Discharge Diagnosis (1) Abdominal pain Status: Acute Priority: High (2) Chest pain Status: Acute Priority: High Hospital Course - Lab Results Lab Results: Most Recent Lab Values WBC 6.0 K/uL (4.8-10.8) 06/26/18 14:13 RBC 4.13 Mil/uL (3.80-5.20) 06/26/18 14:13 Hgb 12.5 g/dL (12.0-16.0) 06/26/18 14:13 Hct 37.8 % (34.0-47.0) 06/26/18 14:13 MCV 91.4 fl (81.0-99.0) 06/26/18 14:13 MCH 30.3 pg (27.0-31.0) 06/26/18 14:13 MCHC 33.1 g/dL (33.0-37.0) 06/26/18 14:13 RDW 14.3 % (11.5-14.5) 06/26/18 14:13 Plt Count 257 K/uL (130-400) 06/26/18 14:13 MPV 9.3 fl (7.2-11.7) 06/26/18 14:13 Neut % (Auto) 74.4 % (50.0-75.0) 06/26/18 14:13 Lymph % (Auto) 18.2 % (20.0-40.0) L 06/26/18 14:13 [place] % (Auto) 5.2 % (0.0-10.0) 06/26/18 14:13 Eos % (Auto) 1.0 % (0.0-4.0) 06/26/18 14:13 Baso % (Auto) 1.2 % (0.0-2.0) 06/26/18 14:13 Neut # (Auto) 4.5 K/uL (1.8-7.0) 06/26/18 14:13 Lymph # (Auto) 1.1 K/uL (1.0-4.3) 06/26/18 14:13 [place] # (Auto) 0.3 K/uL (0.0-0.8) 06/26/18 14:13 Eos # (Auto) 0.1 K/uL (0.0-0.7) 06/26/18 14:13 Baso # (Auto) 0.1 K/uL (0.0-0.2) 06/26/18 14:13 PT 11.3 Seconds (9.8-13.1) 06/26/18 14:13 INR 1.0 06/26/18 14:13 APTT 32.2 Seconds (25.6-37.1) 06/26/18 14:13 Sodium 137 mmol/l (132-148) 06/26/18 14:13 Potassium 4.6 MMOL/L (3.6-5.0) 06/26/18 14:13 Chloride 104 mmol/L (98-107) 06/26/18 14:13 Carbon Dioxide 27 mmol/L (22-30) 06/26/18 14:13 Anion Gap 11 (10-20) 06/26/18 14:13 BUN 15 mg/dl (7-17) 06/26/18 14:13 Creatinine 0.6 mg/dl (0.7-1.2) L 06/26/18 14:13 Est GFR ( Amer) > 60 06/26/18 14:13 Est GFR (Non-Af Amer) > 60 06/26/18 14:13 POC Glucose (mg/dL) 197 mg/dL (65-110) H 06/27/18 05:22 Random Glucose 338 mg/dL (65-105) H 06/26/18 14:13 Calcium 10.1 mg/dL (8.4-10.2) 06/26/18 14:13 Phosphorus 2.8 mg/dl (2.5-4.5) 06/26/18 14:13 Magnesium 2.0 MG/DL (1.6-2.3) 06/26/18 14:13 Total Bilirubin 0.3 mg/dl (0.2-1.3) 06/26/18 14:13 AST 30 U/L (14-36) 06/26/18 14:13 ALT 32 U/L (9-52) 06/26/18 14:13 Alkaline Phosphatase 121 U/L (38-126) 06/26/18 14:13 Troponin I 0.0710 ng/mL (0.00-0.120) 06/27/18 05:29 Total Protein 7.4 G/DL (6.3-8.2) 06/26/18 14:13 Albumin 4.3 g/dL (3.5-5.0) 06/26/18 14:13 Globulin 3.1 gm/dL (2.2-3.9) 06/26/18 14:13 Albumin/Globulin Ratio 1.4 (1.0-2.1) 06/26/18 14:13 Lipase 22 U/L (23-300) L 06/26/18 14:13 Urine Color Straw (YELLOW) 06/27/18 07:01 Urine Clarity Clear (Clear) 06/27/18 07:01 Urine pH 7.0 (5.0-8.0) 06/27/18 07:01 Ur Specific [place] 1.010 (1.003-1.030) 06/27/18 07:01 Urine Protein Negative mg/dL (NEGATIVE) 06/27/18 07:01 Urine Glucose (UA) 150 mg/dL (Normal) 06/27/18 07:01 Urine Ketones Negative mg/dL (NEGATIVE) 06/27/18 07:01 Urine Blood Negative (NEGATIVE) 06/27/18 07:01 Urine Nitrate Negative (NEGATIVE) 06/27/18 07:01 Urine Bilirubin Negative (NEGATIVE) 06/27/18 07:01 Urine Urobilinogen 0.2-1.0 mg/dL (0.2-1.0) 06/27/18 07:01 Ur Leukocyte Esterase Neg [place]/uL (Negative) 06/27/18 07:01 - Hospital Course Hospital Course: Patient is a 68 yo female with PMhx of HTN, IDDM, CAD s/p drug eluting stent x2 in 11/2017 (Dr. Frost) presents to ED with complaints of chest pain. was admitted for ACS Evaluation. IN ER patient vitals were WNL except blood pressure of 156/81, CBC, CMP MH, phos, lipase wnl, Troponin was negative x2 EKG NSR no ischemic changes. Chest xray and Ct scan were negative. Patient received ASA 325mg, plavix 75mg and insulin. Patient was seen and examined at bedside today. Patient had no acute event overnight, Patient feel better, she denies any chest pain, sob, abdominal pain or any other symptoms. Patient states she feel ready to go home. * Patient declined Plavix as this medication make her feel confused and tired, Explained to patient the importance of Plavix for her health. Patient still declines it. Patient adivsed to follow up with PMD Dr. Yu in 1-2 days. ( patient state she have a appointment with Dr yu tomorrow.) PMD: Dr. Yu, [place] Patient was advised if chest pain recur, exacerbate, or develop sob, or any other symptoms of concern to go to closest ER. Discharge Exam - Head Exam Head Exam: NORMAL INSPECTION - Eye Exam Eye Exam: EOMI, Normal appearance, PERRL Pupil Exam: NORMAL ACCOMODATION - Respiratory Exam Respiratory Exam: Clear to PA & Lateral, NORMAL BREATHING PATTERN, UNREMARKABLE - Cardiovascular Exam Cardiovascular Exam: REGULAR RHYTHM, +S1, +S2 - GI/Abdominal Exam GI & Abdominal Exam: Normal Bowel Sounds, Unremarkable - Neurological Exam Neurological exam: Alert, Normal Gait, Oriented x3 - Psychiatric Exam Psychiatric exam: Normal Affect, Normal Mood - Skin Skin Exam: Dry, Intact, Normal Color, Warm Discharge Plan - Follow Up Plan Condition: STABLE Disposition: HOME/ ROUTINE Patient education suggested?: Yes
[2018-06-27] MEDS ORDERED: Insulin Regular 100 units/ml SC SCH (17:00)
== END 2018-06-27 11:03 | disposition home or self-care (01) ==
LOC: H.ER 13:06 → H.ERHOLD 15:50 → H.TEL 18:19
PROVIDERS: ADMIT Hospitalist; ATTEND Hospitalist
DX: R07.89 Other chest pain (principal); R55 Syncope and collapse; K29.70 Gastritis, unspecified, without bleeding; E11.9 Type 2 diabetes mellitus without complications; I25.10 Atherosclerotic heart disease of native coronary artery without angina pectoris; I10 Essential (primary) hypertension; E03.9 Hypothyroidism, unspecified; E78.5 Hyperlipidemia, unspecified; Z91.14 Patient's other noncompliance with medication regimen; H91.8X2 Other specified hearing loss, left ear; J45.909 Unspecified asthma, uncomplicated; F41.9 Anxiety disorder, unspecified; Z88.0 Allergy status to penicillin; Z91.041 Radiographic dye allergy status; Z79.4 Long term (current) use of insulin; Z79.02 Long term (current) use of antithrombotics/antiplatelets; Z95.5 Presence of coronary angioplasty implant and graft; Z87.01 Personal history of pneumonia (recurrent)
CPT/HCPCS: 36415; 70450; 71045; 80053; 81003; 82948; 83690; 83735; 84100; 84484; 85025; 85610; 85730; 93005; 99285; G0378

== ENCOUNTER 2018-12-23 13:23 | Observation (INO) | payer MEDICARE, OTHER ==
[2018-12-23 15:24] LABS: ALB/GLOB RATIO 1.3 (1.0-2.1); ALBUMIN 4.5 g/dL (3.5-5.0); ALT/SGPT 26 U/L (9-52); AST/SGOT 34 U/L (14-36); BASO # 0.1 K/uL (0.0-0.2); BASO % 0.7 % (0.0-2.0); BLOOD UREA NITROGEN 18 mg/dl (7-17); CALCIUM 9.9 mg/dL (8.4-10.2); EOS % 0.5 % (0.0-4.0); GFR NON-AFRICAN AMERICAN > 60; HEMOGLOBIN 12.5 g/dL (12.0-16.0); LYMPH % 10.9 % (20.0-40.0); MEAN CELL VOLUME 91.5 fl (81.0-99.0); MEAN CORPUSCULAR HEMOGLOBIN 29.8 pg (27.0-31.0); MEAN CORPUSCULAR HGB CONC 32.6 g/dL (33.0-37.0); MEAN PLATELET VOLUME 9.5 fl (7.2-11.7); MONO # 0.4 K/uL (0.0-0.8); MONO % 3.8 % (0.0-10.0); NEUT % 84.1 % (50.0-75.0); RBC 4.19 Mil/uL (3.80-5.20); RED CELL DISTRIBUTION WIDTH 14.4 % (11.5-14.5); WHITE BLOOD COUNT 9.5 K/uL (4.8-10.8)
--- NOTE | 2018-12-23 15:28 | ED PDOC ---
Hyperglycemia/Hypoglycemia Time Seen by Provider: 12/23/18 14:12 Chief Complaint (Nursing): Weakness/Neurological Deficit Chief Complaint (Provider): Weakness, Dizziness, Hypoglycemia History Per: Patient History/Exam Limitations: no limitations Onset/Duration Of Symptoms: Hrs (since 0800 this morning) Current Symptoms Are (Timing): Still Present : The patient does not have any of the infectious symptoms listed except for those marked. Additional Complaint(s): 68 year old female presents to the ED for evaluation of weakness, dizziness, and low blood sugar. Patient reports that after breakfast this morning around 0800 she began to feel weak and dizzy, so checked her BS which was 71. After eating more, she checked again a couple minutes later and it was in the 60s. Patient states she ate even more and around 0900 checked her BS again, which was in the 80s; despite this, she still felt weak and developed associated left sided chest pain with palpitations which resolved with Aspirin. She further reports she has been "hyper" this past week, being more active than usual. Of note, patient states her Synthroid was recently increased from 112mcg to 125mcg by her PMD last week. Otherwise, denies shortness of breath, numbness, tingling, nausea, vomiting, headache, fever, and chills. Past Medical History Reviewed: Historical Data, Nursing Documentation, Vital Signs Vital Signs: Last Vital Signs Temp 98.6 F 12/23/18 13:25 Pulse 80 12/23/18 13:25 Resp 19 12/23/18 13:25 BP 134/72 12/23/18 13:25 Pulse Ox 96 12/23/18 13:25 Primary Care Provider: Jossie Tai - Medical History PMH: Anxiety, Asthma, CAD, Depression, Diabetes, HTN, Hypercholesterolemia, Hypothyroidism, Pneumonia, Seizures (known seizure and does not take any meds for it) Denies: Anemia, HIV, Chronic Kidney Disease - Surgical History Surgical History: Coronary Stent (x4) - Family History Family History: States: CAD - Social History Current smoker - smoking cessation education provided: No - Immunization History Hx Tetanus Toxoid Vaccination: No Hx Influenza Vaccination: No Hx Pneumococcal Vaccination: No - Home Medications Home Medications: Ambulatory Orders Medication Instructions Recorded Insulin Human Regular [Novolin R] 2 unit SC DIN PRN 08/29/16 Insulin Human Regular [Novolin R] 6 unit SC BRK 08/29/16 Insulin Human NPH [Humulin N] 30 unit SC QAM 10/16/17 Aspirin [Aspirin Chewable] 81 mg PO DAILY #30 chew 11/25/17 Fluticasone Nasal [Flonase] 2 spray ROBYN DAILY PRN 12/23/18 Levothyroxine [Synthroid] 125 mcg PO DAILY 12/23/18 - Allergies Allergies/Adverse Reactions: Allergies Allergy/AdvReac Type Severity Reaction Status Date / Time iodine Allergy DIZZINESS Verified 12/23/18 13:27 Penicillins Allergy RASH Verified 12/23/18 13:27 Review of Systems ROS Statement: Except As Marked, All Systems Reviewed And Found Negative Constitutional: Positive for: Weakness. Negative for: Fever, Chills Cardiovascular: Positive for: Chest Pain (left sided), Palpitations Respiratory: Negative for: Shortness of Breath Gastrointestinal: Negative for: Nausea, Vomiting Neurological: Positive for: Dizziness. Negative for: Numbness (or tingling), Headache Physical Exam - Reviewed Nursing Documentation Reviewed: Yes Vital Signs Reviewed: Yes - Physical Exam Appears: Positive for: No Acute Distress Head Exam: Positive for: ATRAUMATIC, NORMAL INSPECTION, NORMOCEPHALIC Skin: Positive for: Normal Color, Warm, DRY Eye Exam: Positive for: EOMI, Normal appearance, PERRL ENT: Positive for: Normal ENT Inspection Neck: Positive for: Normal, Painless ROM, Supple Cardiovascular/Chest: Positive for: Regular Rate, Rhythm Respiratory: Positive for: Normal Breath Sounds. Negative for: Accessory Muscle Use, Respiratory Distress Gastrointestinal/Abdominal: Positive for: Normal Exam, Soft. Negative for: Tenderness Extremity: Positive for: Normal ROM (all extremities) Neurological/Psych: Positive for: Awake, Alert, Oriented (x3), Gait (steady, unassisted). Negative for: Facial Droop, Other (aphasia; mosquito sprayer strength equal bilaterally; LE strength 5/5 bilaterally) - Laboratory Results Result Diagrams: 12/23/18 15:08 12/23/18 15:08 Lab Results: Total Bilirubin 0.3 mg/dl (0.2-1.3) 12/23/18 15:08 AST 34 U/L (14-36) 12/23/18 15:08 ALT 26 U/L (9-52) 12/23/18 15:08 Alkaline Phosphatase 114 U/L (38-126) 12/23/18 15:08 Total Protein 8.0 G/DL (6.3-8.2) 12/23/18 15:08 Albumin 4.5 g/dL (3.5-5.0) 12/23/18 15:08 Globulin 3.4 gm/dL (2.2-3.9) 12/23/18 15:08 Albumin/Globulin Ratio 1.3 (1.0-2.1) 12/23/18 15:08 - ECG ECG: Positive for: Interpreted By Me ECG Rhythm: Positive for: Sinus Rhythm. Negative for: ST/T Changes Rate: 65 O2 Sat by Pulse Oximetry: 96 (RA) Pulse Ox Interpretation: Normal - Radiology X-Ray: Read By Radiologist (CXR) X-Ray Interpretation: No Acute Disease Medical Decision Making Medical Decision Making: Time: 1438 Initial Impression: weakness, hypoglycemia, chest pain Initial Plan: --CT head without contrast --EKG --Alcohol serum --CMP --Drug screen --Free T4 --FT3, T3, T4 chemistry --TSH --Trop I --CBC with differential --CXR --Pepcid 20mg PO --Pt placed on front desk monitor --Urinalysis --Reevaluation CT head w/o contrast: negative as per radiology report. Case d/w Dr. Tomlni, hospitalist, and arrangements made for 23 hr observation. Pt. informed of plan and agrees with care. ----- Scribe Attestation: Documented by Noelle Mcrae, acting as a scribe for Franki Avendaño PA-C. Provider Scribe Attestation: All medical record entries made by the Scribe were at my direction and personal ly dictated by me. I have reviewed the chart and agree that the record accurately reflects my personal performance of the history, physical exam, medical decision making, and the department course for this patient. I have also personally directed, reviewed, and agree with the discharge instructions and disposition. Disposition - Clinical Impression Clinical Impression: Weakness, Chest pain - Disposition Disposition Time: 17:04 Condition: FAIR
--- NOTE | 2018-12-23 15:52 | CT ---
Date of service: 12/23/2018 PROCEDURE: CT HEAD WITHOUT CONTRAST. HISTORY: weakness COMPARISON: Comparison is made with 06/26/2018 TECHNIQUE: Axial computed tomography images were obtained through the head/brain without intravenous contrast. Radiation dose: Total exam DLP = 964.56 mGy-cm. This CT exam was performed using one or more of the following dose reduction techniques: Automated exposure control, adjustment of the mA and/or kV according to patient size, and/or use of iterative reconstruction technique. FINDINGS: HEMORRHAGE: No intracranial hemorrhage. BRAIN: No mass effect or edema. No atrophy or chronic microvascular ischemic changes. VENTRICLES: Unremarkable. No hydrocephalus. CALVARIUM: Unremarkable. PARANASAL SINUSES: Unremarkable as visualized. No significant inflammatory changes. MASTOID AIR CELLS: Unremarkable as visualized. No inflammatory changes. OTHER FINDINGS: None. IMPRESSION: Normal CT of the Head.
--- NOTE | 2018-12-23 15:54 | RAD ---
Date of service: 12/23/2018 HISTORY: chest pain COMPARISON: 06/26/2018. FINDINGS: LUNGS: No active pulmonary disease. PLEURA: No significant pleural effusion identified, no pneumothorax apparent. CARDIOVASCULAR: No atherosclerotic calcification present Normal. OSSEOUS STRUCTURES: No significant abnormalities. VISUALIZED UPPER ABDOMEN: Normal. OTHER FINDINGS: None. IMPRESSION: No active disease. No significant interval change compared to the prior examination(s).
[2018-12-23 16:04] LABS: T3 0.829 nmol/L (1.49-2.60)
[2018-12-23] MEDS ORDERED: Insulin Regular 100 units/ml SC PRN (19:21)
[2018-12-23] MEDS ORDERED: Glucagon Recombinant 1 mg Inj IM PRN (19:31)
[2018-12-23] MEDS ORDERED: Dextrose 50% SYRINGE Inj (50 ml) IV PRN (19:31)
--- NOTE | 2018-12-23 19:34 | CP.PCM.HP ---
<Sofi Walsh - Last Filed: 12/23/18 23:02> History of Present Illness - History of Present Illness History of Present Illness: CC: low sugar HPI: 68 YO Female with PMHx of ID, CAD, Hypothyroidism, IDDM presents to the ED for evaluation of weakness, dizziness, and low blood sugar. Patient states that today she felt every weak and dizzy, when she checked her blood sugar it was 70. She drank juice and ate food, but continued to feel that way and when she rechecked her sugar again it was still 70 which prompted her to come to the ED. In additional to the weakness patient experienced chest tightness and palpitations which improved after she took aspirin at home. She noted that she has not been feeling like herself in the past few days after her dose of synthroid was changed. PMHx: ID, CAD, Hypothyroidism, IDDM PSH: CAD with 3 stents, Left hip replacement Soc: Denies alcohol, Denies illicit drug use, Tobacco: '3 or 4 puffs on occasion' FHx: Mother: cardiac causes () Father: Cardiomyopathy/ID ('s) Meds: NPH 25, Regular 6 units, Synthroid 125, Multivitamin Allergies: PCN and iodine rash and redness Present on Admission - Present on Admission Any Indicators Present on Admission: No Review of Systems - Constitutional Constitutional: absent: Chills, Fever, Weakness - Cardiovascular Cardiovascular: Chest Pain, Palpitations. absent: Dyspnea - Respiratory Respiratory: absent: Cough, Dyspnea - Gastrointestinal Gastrointestinal: absent: Abdominal Pain - Genitourinary Genitourinary: absent: Dysuria - Musculoskeletal Musculoskeletal: absent: Muscle Weakness, Numbness - Neurological Neurological: Dizziness, Weakness Past Patient History - Infectious Disease Hx of Infectious Diseases: None - Past Medical History & Family History Past Medical History?: Yes - Past Social History Smoking Status: Former Smoker Alcohol: None Drugs: Denies - CARDIAC Hx Hypercholesterolemia: Yes Hx Hypertension: Yes - PULMONARY Hx Asthma: Yes Hx Pneumonia: Yes - NEUROLOGICAL Hx Seizures: Yes (known seizure and does not take any meds for it) - HEENT Hx HEENT Problems: Yes Hx Deafness: Yes ([place] on left) - RENAL Hx Chronic Kidney Disease: No - ENDOCRINE/METABOLIC Hx Hypothyroidism: Yes - HEMATOLOGICAL/ONCOLOGICAL Hx Anemia: No Hx Human Immunodeficiency Virus (HIV): No - INTEGUMENTARY Hx Dermatological Problems: No - MUSCULOSKELETAL/RHEUMATOLOGICAL Hx Musculoskeletal Disorders: Yes 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[place]) - GASTROINTESTINAL Hx Gastrointestinal Disorders: No - GENITOURINARY/GYNECOLOGICAL Hx Genitourinary Disorders: No - PSYCHIATRIC Hx Anxiety: Yes Hx Depression: Yes - SURGICAL HISTORY Hx Coronary Stent: Yes (x4) - ANESTHESIA Hx Anesthesia: Yes Hx Anesthesia Reactions: No Hx Malignant Hyperthermia: No Meds Allergies/Adverse Reactions: Allergies Allergy/AdvReac Type Severity Reaction Status Date / Time iodine Allergy DIZZINESS Verified 12/23/18 13:27 Penicillins Allergy RASH Verified 12/23/18 13:27 Physical Exam - Constitutional Appears: No Acute Distress, Other (anxious ) - Head Exam Head Exam: NORMAL INSPECTION - Eye Exam Eye Exam: Normal appearance - ENT Exam ENT Exam: Mucous Membranes Moist - Respiratory Exam Respiratory Exam: Clear to Auscultation Bilateral, NORMAL BREATHING PATTERN. absent: Wheezes - Cardiovascular Exam Cardiovascular Exam: REGULAR RHYTHM, +S1, +S2 - GI/Abdominal Exam GI & Abdominal Exam: Normal Bowel Sounds, Soft. absent: Tenderness - Neurological Exam Neurological exam: Alert, CN II-XII Intact, Oriented x3 - Psychiatric Exam Psychiatric exam: Anxious Results - Vital Signs Recent Vital Signs: Last Vital Signs Temp 98.6 F 12/23/18 13:25 Pulse 78 12/23/18 18:15 Resp 17 12/23/18 18:15 BP 131/70 12/23/18 18:15 Pulse Ox 99 12/23/18 18:15 - Labs Result Diagrams: 12/23/18 15:08 12/23/18 15:08 Labs: Laboratory Results - last 24 hr 12/23/18 12/23/18 12/23/18 13:36 15:08 15:08 WBC 9.5 D RBC 4.19 Hgb 12.5 Hct 38.4 MCV 91.5 MCH 29.8 MCHC 32.6 L RDW 14.4 Plt Count 271 MPV 9.5 Neut % (Auto) 84.1 H Lymph % (Auto) 10.9 L White % (Auto) 3.8 Eos % (Auto) 0.5 Baso % (Auto) 0.7 Neut # (Auto) 8.0 H Lymph # (Auto) 1.0 White # (Auto) 0.4 Eos # (Auto) 0.0 Baso # (Auto) 0.1 Sodium 137 Potassium 4.5 Chloride 101 Carbon Dioxide 28 Anion Gap 13 BUN 18 H Creatinine 0.6 L Est GFR ( Amer) > 60 Est GFR (Non-Af Amer) > 60 POC Glucose (mg/dL) 204 H Random Glucose 123 H Calcium 9.9 Total Bilirubin 0.3 AST 34 ALT 26 Alkaline Phosphatase 114 Troponin I < 0.0120 Total Protein 8.0 Albumin 4.5 Globulin 3.4 Albumin/Globulin Ratio 1.3 Free T4 Thyroxine (T4) 9.80 Total T3 0.829 L TSH 3rd Generation 7.28 H Alcohol, Quantitative < 10 12/23/18 12/23/18 15:08 16:39 WBC RBC Hgb Hct MCV MCH MCHC RDW Plt Count MPV Neut % (Auto) Lymph % (Auto) White % (Auto) Eos % (Auto) Baso % (Auto) Neut # (Auto) Lymph # (Auto) White # (Auto) Eos # (Auto) Baso # (Auto) Sodium Potassium Chloride Carbon Dioxide Anion Gap BUN Creatinine Est GFR ( Amer) Est GFR (Non-Af Amer) POC Glucose (mg/dL) 94 Random Glucose Calcium Total Bilirubin AST ALT Alkaline Phosphatase Troponin I Total Protein Albumin Globulin Albumin/Globulin Ratio Free T4 1.35 Thyroxine (T4) Total T3 TSH 3rd Generation Alcohol, Quantitative - EKG Data EKG Interpreted by: Myself EKG shows normal: Sinus rhythm Rate: Normal (NSR with a rate of 65, no acute ST or T wave changes ) Assessment & Plan - Assessment and Plan (Free Text) Assessment: Assessment/Plan: 68 YO Female with PMHx of ID, CAD, Hypothyroidism, IDDM is admitted for chest pain, r/o ACS. Chest pain/palpitations -likely 2/2 to hypoglycemia vs thyroid disease -less likely to bar cardiac in origin -trops x 2 neg -EKG with no acute ST or T wave changes -CXR wnl -follow up trop and morning ekg -start KYLER/Statin and betablocker Weakness/fatigue/dizziness -likely 2/2 to hypoglycemia -CT head no acute changes -no focal or sensory deficit, normal neuro exam IDDM -c/w home regimen -sliding scale -hypoglycemia protocol Hypothyroidism -recently adjusted -elevated TSH -c/w home dose for now hx of ID, CAD -KYLER/BB/Statin started DVT prolx -Lovenox sc <Elise Tomlin - Last Filed: 12/24/18 18:50> Results - Vital Signs Recent Vital Signs: Last Vital Signs Temp 98.1 F 12/24/18 11:48 Pulse 67 12/24/18 11:48 Resp 21 12/24/18 11:48 BP 143/70 12/24/18 11:48 Pulse Ox 97 12/24/18 11:48 - Labs Result Diagrams: 12/24/18 04:45 12/24/18 04:45 Labs: Laboratory Results - last 24 hr 12/23/18 12/23/18 12/23/18 15:08 21:50 22:44 WBC RBC Hgb Hct MCV MCH MCHC RDW Plt Count MPV Neut % (Auto) Lymph % (Auto) White % (Auto) Eos % (Auto) Baso % (Auto) Neut # (Auto) Lymph # (Auto) White # (Auto) Eos # (Auto) Baso # (Auto) Sodium Potassium Chloride Carbon Dioxide Anion Gap BUN Creatinine Est GFR ( Amer) Est GFR (Non-Af Amer) POC Glucose (mg/dL) 196 H Random Glucose Hemoglobin A1c Calcium Total Bilirubin AST ALT Alkaline Phosphatase Troponin I < 0.0120 Total Protein Albumin Globulin Albumin/Globulin Ratio Triglycerides Cholesterol LDL Cholesterol Direct HDL Cholesterol Free T3 pg/mL 2.23 L Urine Color Urine Clarity Urine pH Ur Specific [place] Urine Protein Urine Glucose (UA) Urine Ketones Urine Blood Urine Nitrate Urine Bilirubin Urine Urobilinogen Ur Leukocyte Esterase Urine RBC (Auto) Urine Microscopic WBC Ur Squamous Epith Cells 12/24/18 12/24/18 12/24/18 04:45 04:45 04:45 WBC 6.4 RBC 3.93 Hgb 11.9 L Hct 35.5 MCV 90.3 MCH 30.1 MCHC 33.4 RDW 14.5 Plt Count 243 MPV 9.3 Neut % (Auto) 62.3 Lymph % (Auto) 27.3 White % (Auto) 7.0 Eos % (Auto) 2.3 Baso % (Auto) 1.1 Neut # (Auto) 4.0 Lymph # (Auto) 1.7 White # (Auto) 0.4 Eos # (Auto) 0.1 Baso # (Auto) 0.1 Sodium 134 Potassium 4.9 Chloride 101 Carbon Dioxide 27 Anion Gap 11 BUN 14 Creatinine 0.6 L Est GFR ( Amer) > 60 Est GFR (Non-Af Amer) > 60 POC Glucose (mg/dL) Random Glucose 351 H Hemoglobin A1c 10.0 H Calcium 9.3 Total Bilirubin 0.6 AST 29 ALT 27 Alkaline Phosphatase 98 Troponin I Total Protein 6.9 Albumin 3.9 Globulin 3.0 Albumin/Globulin Ratio 1.3 Triglycerides 97 D Cholesterol 227 H LDL Cholesterol Direct 116 HDL Cholesterol 68 Free T3 pg/mL Urine Color Urine Clarity Urine pH Ur Specific [place] Urine Protein Urine Glucose (UA) Urine Ketones Urine Blood Urine Nitrate Urine Bilirubin Urine Urobilinogen Ur Leukocyte Esterase Urine RBC (Auto) Urine Microscopic WBC Ur Squamous Epith Cells 12/24/18 12/24/18 12/24/18 05:41 10:00 10:46 WBC RBC Hgb Hct MCV MCH MCHC RDW Plt Count MPV Neut % (Auto) Lymph % (Auto) White % (Auto) Eos % (Auto) Baso % (Auto) Neut # (Auto) Lymph # (Auto) White # (Auto) Eos # (Auto) Baso # (Auto) Sodium Potassium Chloride Carbon Dioxide Anion Gap BUN Creatinine Est GFR ( Amer) Est GFR (Non-Af Amer) POC Glucose (mg/dL) 322 H > 500 H* Random Glucose Hemoglobin A1c Calcium Total Bilirubin AST ALT Alkaline Phosphatase Troponin I Total Protein Albumin Globulin Albumin/Globulin Ratio Triglycerides Cholesterol LDL Cholesterol Direct HDL Cholesterol Free T3 pg/mL Urine Color Yellow Urine Clarity Clear Urine pH 5.0 Ur Specific [place] 1.016 Urine Protein Negative Urine Glucose (UA) >=500 Urine Ketones Negative Urine Blood Negative Urine Nitrate Negative Urine Bilirubin Negative Urine Urobilinogen 0.2-1.0 Ur Leukocyte Esterase Neg Urine RBC (Auto) < 1 Urine Microscopic WBC < 1 Ur Squamous Epith Cells 1 12/24/18 11:52 WBC RBC Hgb Hct MCV MCH MCHC RDW Plt Count MPV Neut % (Auto) Lymph % (Auto) White % (Auto) Eos % (Auto) Baso % (Auto) Neut # (Auto) Lymph # (Auto) White # (Auto) Eos # (Auto) Baso # (Auto) Sodium Potassium Chloride Carbon Dioxide Anion Gap BUN Creatinine Est GFR ( Amer) Est GFR (Non-Af Amer) POC Glucose (mg/dL) 484 H* Random Glucose Hemoglobin A1c Calcium Total Bilirubin AST ALT Alkaline Phosphatase Troponin I Total Protein Albumin Globulin Albumin/Globulin Ratio Triglycerides Cholesterol LDL Cholesterol Direct HDL Cholesterol Free T3 pg/mL Urine Color Urine Clarity Urine pH Ur Specific [place] Urine Protein Urine Glucose (UA) Urine Ketones Urine Blood Urine Nitrate Urine Bilirubin Urine Urobilinogen Ur Leukocyte Esterase Urine RBC (Auto) Urine Microscopic WBC Ur Squamous Epith Cells Attending/Attestation - Attestation I have personally seen and examined this patient.: Yes I have fully participated in the care of the patient.: Yes I have reviewed all pertinent clinical information: Yes Notes (Text): Agree with findings and plan as above.
[2018-12-23] MEDS: Insulin Regular 100 units/ml SC SCH (22:36)
[2018-12-24 06:15] LABS: BASO # 0.1 K/uL (0.0-0.2); BASO % 1.1 % (0.0-2.0); EOS # 0.1 K/uL (0.0-0.7); EOS % 2.3 % (0.0-4.0); HEMOGLOBIN 11.9 g/dL (12.0-16.0); LYMPH # 1.7 K/uL (1.0-4.3); LYMPH % 27.3 % (20.0-40.0); MEAN CELL VOLUME 90.3 fl (81.0-99.0); MEAN CORPUSCULAR HEMOGLOBIN 30.1 pg (27.0-31.0); MEAN CORPUSCULAR HGB CONC 33.4 g/dL (33.0-37.0); MEAN PLATELET VOLUME 9.3 fl (7.2-11.7); MONO # 0.4 K/uL (0.0-0.8); NEUT % 62.3 % (50.0-75.0); RBC 3.93 Mil/uL (3.80-5.20); RED CELL DISTRIBUTION WIDTH 14.5 % (11.5-14.5); WHITE BLOOD COUNT 6.4 K/uL (4.8-10.8)
[2018-12-24 06:25] LABS: ALB/GLOB RATIO 1.3 (1.0-2.1); ALBUMIN 3.9 g/dL (3.5-5.0); ALT/SGPT 27 U/L (9-52); AST/SGOT 29 U/L (14-36); BLOOD UREA NITROGEN 14 mg/dl (7-17); CALCIUM 9.3 mg/dL (8.4-10.2); GFR NON-AFRICAN AMERICAN > 60; HDL CHOLESTEROL 68 MG/DL (30-70)
[2018-12-24 06:27] LABS: LDL CHOLESTEROL 116 mg/dL (0-129)
[2018-12-24] MEDS ORDERED: Levothyroxine 125 MCG TAB PO SCH (06:30)
[2018-12-24] MEDS ORDERED: Insulin Regular 100 units/ml SC SCH (08:00)
[2018-12-24 08:06] VITALS: RESP 21
[2018-12-24] MEDS ORDERED: Enoxaparin 40 mg Syringe SC SCH (09:00)
[2018-12-24] MEDS ORDERED: Insulin NPH Human 100 Units/ml Inj SC SCH ×2 (09:00→09:30)
[2018-12-24] MEDS: Insulin Regular 100 units/ml SC SCH ×2 (09:49→11:52)
--- NOTE | 2018-12-24 10:47 | CARD ---
APPROVED REPORT Date of service: 12/24/2018 EKG Measurement Heart [id number] ID [id number] <Conclusion> Sinus bradycardia with sinus arrhythmia Otherwise normal ECG
--- NOTE | 2018-12-24 10:54 | CARD ---
APPROVED REPORT Date of service: 12/23/2018 EKG Measurement Heart [id number] <Conclusion> Normal sinus rhythm with sinus arrhythmia Normal ECG
[2018-12-24 11:24] LABS: SQUAMOUS EPITHIAL 1 /hpf (0-5); URINE BILIRUBIN NEGATIVE (NEGATIVE); URINE BLOOD NEGATIVE (NEGATIVE); URINE CLARITY CLEAR (Clear); URINE COLOR YELLOW (YELLOW); URINE GLUCOSE (UA) >=500 mg/dL (NEGATIVE); URINE LEUKOCYTE ESTERASE NEG Leu/uL (Negative); URINE PROTEIN NEGATIVE (NEGATIVE); URINE UROBILINOGEN 0.2-1.0 mg/dL (0.2-1.0)
[2018-12-24 11:49] VITALS: BP 143/70; PULSE 67; TEMP 98.1; O2SAT 97
--- NOTE | 2018-12-24 11:58 | CP.PCM.DIS ---
<Jonh Rudd - Last Filed: 12/25/18 06:45> Provider - Provider Date of Admission: 12/23/18 17:16 Attending physician: Elise Tomlin DO Time Spent in preparation of Discharge (in minutes): 20 Hospital Course - Lab Results Lab Results: Most Recent Lab Values WBC 6.4 K/uL (4.8-10.8) 12/24/18 04:45 RBC 3.93 Mil/uL (3.80-5.20) 12/24/18 04:45 Hgb 11.9 g/dL (12.0-16.0) L 12/24/18 04:45 Hct 35.5 % (34.0-47.0) 12/24/18 04:45 MCV 90.3 fl (81.0-99.0) 12/24/18 04:45 MCH 30.1 pg (27.0-31.0) 12/24/18 04:45 MCHC 33.4 g/dL (33.0-37.0) 12/24/18 04:45 RDW 14.5 % (11.5-14.5) 12/24/18 04:45 Plt Count 243 K/uL (130-400) 12/24/18 04:45 MPV 9.3 fl (7.2-11.7) 12/24/18 04:45 Neut % (Auto) 62.3 % (50.0-75.0) 12/24/18 04:45 Lymph % (Auto) 27.3 % (20.0-40.0) 12/24/18 04:45 [place] % (Auto) 7.0 % (0.0-10.0) 12/24/18 04:45 Eos % (Auto) 2.3 % (0.0-4.0) 12/24/18 04:45 Baso % (Auto) 1.1 % (0.0-2.0) 12/24/18 04:45 Neut # (Auto) 4.0 K/uL (1.8-7.0) 12/24/18 04:45 Lymph # (Auto) 1.7 K/uL (1.0-4.3) 12/24/18 04:45 [place] # (Auto) 0.4 K/uL (0.0-0.8) 12/24/18 04:45 Eos # (Auto) 0.1 K/uL (0.0-0.7) 12/24/18 04:45 Baso # (Auto) 0.1 K/uL (0.0-0.2) 12/24/18 04:45 Sodium 134 mmol/l (132-148) 12/24/18 04:45 Potassium 4.9 MMOL/L (3.6-5.0) 12/24/18 04:45 Chloride 101 mmol/L (98-107) 12/24/18 04:45 Carbon Dioxide 27 mmol/L (22-30) 12/24/18 04:45 Anion Gap 11 (10-20) 12/24/18 04:45 BUN 14 mg/dl (7-17) 12/24/18 04:45 Creatinine 0.6 mg/dl (0.7-1.2) L 12/24/18 04:45 Est GFR ( Amer) > 60 12/24/18 04:45 Est GFR (Non-Af Amer) > 60 12/24/18 04:45 POC Glucose (mg/dL) > 500 mg/dL (65-110) H* 12/24/18 10:46 Random Glucose 351 mg/dL (65-105) H 12/24/18 04:45 Hemoglobin A1c 10.0 % (4.2-6.5) H 12/24/18 04:45 Calcium 9.3 mg/dL (8.4-10.2) 12/24/18 04:45 Total Bilirubin 0.6 mg/dl (0.2-1.3) 12/24/18 04:45 AST 29 U/L (14-36) 12/24/18 04:45 ALT 27 U/L (9-52) 12/24/18 04:45 Alkaline Phosphatase 98 U/L (38-126) 12/24/18 04:45 Troponin I < 0.0120 ng/mL (0.00-0.120) 12/23/18 21:50 Total Protein 6.9 G/DL (6.3-8.2) 12/24/18 04:45 Albumin 3.9 g/dL (3.5-5.0) 12/24/18 04:45 Globulin 3.0 gm/dL (2.2-3.9) 12/24/18 04:45 Albumin/Globulin Ratio 1.3 (1.0-2.1) 12/24/18 04:45 Triglycerides 97 mg/DL (0-149) D 12/24/18 04:45 Cholesterol 227 mg/dL (0-199) H 12/24/18 04:45 LDL Cholesterol Direct 116 mg/dL (0-129) 12/24/18 04:45 HDL Cholesterol 68 MG/DL (30-70) 12/24/18 04:45 Free T4 1.35 ng/dL (0.78-2.19) 12/23/18 15:08 Thyroxine (T4) 9.80 ug/dl (5.5-11.0) 12/23/18 15:08 Free T3 pg/mL 2.23 pg/mL (2.77-5.27) L 12/23/18 15:08 Total T3 0.829 nmol/L (1.49-2.60) L 12/23/18 15:08 TSH 3rd Generation 7.28 mIU/ML (0.46-4.68) H 12/23/18 15:08 Urine Color Yellow (YELLOW) 12/24/18 10:00 Urine Clarity Clear (Clear) 12/24/18 10:00 Urine pH 5.0 (5.0-8.0) 12/24/18 10:00 Ur Specific [place] 1.016 (1.003-1.030) 12/24/18 10:00 Urine Protein Negative mg/dL (NEGATIVE) 12/24/18 10:00 Urine Glucose (UA) >=500 mg/dL (NEGATIVE) 12/24/18 10:00 Urine Ketones Negative mg/dL (NEGATIVE) 12/24/18 10:00 Urine Blood Negative (NEGATIVE) 12/24/18 10:00 Urine Nitrate Negative (NEGATIVE) 12/24/18 10:00 Urine Bilirubin Negative (NEGATIVE) 12/24/18 10:00 Urine Urobilinogen 0.2-1.0 mg/dL (0.2-1.0) 12/24/18 10:00 Ur Leukocyte Esterase Neg Mariely/uL (Negative) 12/24/18 10:00 Urine RBC (Auto) < 1 /hpf (0-3) 12/24/18 10:00 Urine Microscopic WBC < 1 /hpf (0-5) 12/24/18 10:00 Ur Squamous Epith Cells 1 /hpf (0-5) 12/24/18 10:00 Alcohol, Quantitative < 10 mg/dl (0-10) 12/23/18 15:08 - Hospital Course Hospital Course: 68 YO Female with PMHx of [place], CAD, Hypothyroidism, IDDM presents to the ED for evaluation of weakness, dizziness, and low blood sugar.admitted for chest pain, evaluate ACS.EKG no acute st/t changes, Trop neg 2x, Chest xra wnl, CT head no acute changes,queenie/statin with beta joni started. Patient today EKG no changes. Patient was seen and examined at bedside today, no acute ACS noted on this admission. Patient have no complains and wish to go home. Patient denied taking any medication and wanted to go home as all medication make her dizzy and rather be treated by PCP. Otherwise no acute distress patient will be discharge and follow up with PCP. Medication Atrovastatin lisinorpil coreg Discharge Exam - Head Exam Head Exam: NORMAL INSPECTION - Eye Exam Eye Exam: EOMI, Normal appearance, PERRL Pupil Exam: NORMAL ACCOMODATION, PERRL - Respiratory Exam Respiratory Exam: Clear to PA & Lateral, NORMAL BREATHING PATTERN, UNREMARKABLE - Cardiovascular Exam Cardiovascular Exam: REGULAR RHYTHM, +S1, +S2 - GI/Abdominal Exam GI & Abdominal Exam: Normal Bowel Sounds, Unremarkable - Neurological Exam Neurological exam: Alert, CN II-XII Intact, Normal Gait, Oriented x3, Reflexes Normal - Psychiatric Exam Psychiatric exam: Normal Affect, Normal Mood - Skin Skin Exam: Dry, Intact, Normal Color Discharge Plan - Discharge Medications Prescriptions: Atorvastatin [Lipitor] 20 mg PO DAILY #30 tab Carvedilol [Coreg] 6.25 mg PO Q12 #30 tab Lisinopril [Zestril] 5 mg PO DAILY #30 tab - Follow Up Plan Condition: FAIR Disposition: HOME/ ROUTINE Instructions: Chest Pain (DC), Generalized Weakness (DC) Additional Instructions: ffollow up with in the clinic on 01/05/19 4:00pm Referrals: [facility] [Outside] <Elise Tomlin - Last Filed: 12/26/18 20:09> Provider - Provider Date of Admission: 12/23/18 17:16 Attending physician: Elise Tomlin DO [facility] Course - Lab Results Lab Results: Most Recent Lab Values WBC 6.4 K/uL (4.8-10.8) 12/24/18 04:45 RBC 3.93 Mil/uL (3.80-5.20) 12/24/18 04:45 Hgb 11.9 g/dL (12.0-16.0) L 12/24/18 04:45 Hct 35.5 % (34.0-47.0) 12/24/18 04:45 MCV 90.3 fl (81.0-99.0) 12/24/18 04:45 MCH 30.1 pg (27.0-31.0) 12/24/18 04:45 MCHC 33.4 g/dL (33.0-37.0) 12/24/18 04:45 RDW 14.5 % (11.5-14.5) 12/24/18 04:45 Plt Count 243 K/uL (130-400) 12/24/18 04:45 MPV 9.3 fl (7.2-11.7) 12/24/18 04:45 Neut % (Auto) 62.3 % (50.0-75.0) 12/24/18 04:45 Lymph % (Auto) 27.3 % (20.0-40.0) 12/24/18 04:45 [place] % (Auto) 7.0 % (0.0-10.0) 12/24/18 04:45 Eos % (Auto) 2.3 % (0.0-4.0) 12/24/18 04:45 Baso % (Auto) 1.1 % (0.0-2.0) 12/24/18 04:45 Neut # (Auto) 4.0 K/uL (1.8-7.0) 12/24/18 04:45 Lymph # (Auto) 1.7 K/uL (1.0-4.3) 12/24/18 04:45 [place] # (Auto) 0.4 K/uL (0.0-0.8) 12/24/18 04:45 Eos # (Auto) 0.1 K/uL (0.0-0.7) 12/24/18 04:45 Baso # (Auto) 0.1 K/uL (0.0-0.2) 12/24/18 04:45 Sodium 134 mmol/l (132-148) 12/24/18 04:45 Potassium 4.9 MMOL/L (3.6-5.0) 12/24/18 04:45 Chloride 101 mmol/L (98-107) 12/24/18 04:45 Carbon Dioxide 27 mmol/L (22-30) 12/24/18 04:45 Anion Gap 11 (10-20) 12/24/18 04:45 BUN 14 mg/dl (7-17) 12/24/18 04:45 Creatinine 0.6 mg/dl (0.7-1.2) L 12/24/18 04:45 Est GFR ( Amer) > 60 12/24/18 04:45 Est GFR (Non-Af Amer) > 60 12/24/18 04:45 POC Glucose (mg/dL) 484 mg/dL (65-110) H* 12/24/18 11:52 Random Glucose 351 mg/dL (65-105) H 12/24/18 04:45 Hemoglobin A1c 10.0 % (4.2-6.5) H 12/24/18 04:45 Calcium 9.3 mg/dL (8.4-10.2) 12/24/18 04:45 Total Bilirubin 0.6 mg/dl (0.2-1.3) 12/24/18 04:45 AST 29 U/L (14-36) 12/24/18 04:45 ALT 27 U/L (9-52) 12/24/18 04:45 Alkaline Phosphatase 98 U/L (38-126) 12/24/18 04:45 Troponin I < 0.0120 ng/mL (0.00-0.120) 12/23/18 21:50 Total Protein 6.9 G/DL (6.3-8.2) 12/24/18 04:45 Albumin 3.9 g/dL (3.5-5.0) 12/24/18 04:45 Globulin 3.0 gm/dL (2.2-3.9) 12/24/18 04:45 Albumin/Globulin Ratio 1.3 (1.0-2.1) 12/24/18 04:45 Triglycerides 97 mg/DL (0-149) D 12/24/18 04:45 Cholesterol 227 mg/dL (0-199) H 12/24/18 04:45 LDL Cholesterol Direct 116 mg/dL (0-129) 12/24/18 04:45 HDL Cholesterol 68 MG/DL (30-70) 12/24/18 04:45 Free T4 1.35 ng/dL (0.78-2.19) 12/23/18 15:08 Thyroxine (T4) 9.80 ug/dl (5.5-11.0) 12/23/18 15:08 Free T3 pg/mL 2.23 pg/mL (2.77-5.27) L 12/23/18 15:08 Total T3 0.829 nmol/L (1.49-2.60) L 12/23/18 15:08 TSH 3rd Generation 7.28 mIU/ML (0.46-4.68) H 12/23/18 15:08 Urine Color Yellow (YELLOW) 12/24/18 10:00 Urine Clarity Clear (Clear) 12/24/18 10:00 Urine pH 5.0 (5.0-8.0) 12/24/18 10:00 Ur Specific [place] 1.016 (1.003-1.030) 12/24/18 10:00 Urine Protein Negative mg/dL (NEGATIVE) 12/24/18 10:00 Urine Glucose (UA) >=500 mg/dL (NEGATIVE) 12/24/18 10:00 Urine Ketones Negative mg/dL (NEGATIVE) 12/24/18 10:00 Urine Blood Negative (NEGATIVE) 12/24/18 10:00 Urine Nitrate Negative (NEGATIVE) 12/24/18 10:00 Urine Bilirubin Negative (NEGATIVE) 12/24/18 10:00 Urine Urobilinogen 0.2-1.0 mg/dL (0.2-1.0) 12/24/18 10:00 Ur Leukocyte Esterase Neg [place]/uL (Negative) 12/24/18 10:00 Urine RBC (Auto) < 1 /hpf (0-3) 12/24/18 10:00 Urine Microscopic WBC < 1 /hpf (0-5) 12/24/18 10:00 Ur Squamous Epith Cells 1 /hpf (0-5) 12/24/18 10:00 Alcohol, Quantitative < 10 mg/dl (0-10) 12/23/18 15:08 Attending/Attestation - Attestation I have personally seen and examined this patient.: Yes I have fully participated in the care of the patient.: Yes I have reviewed all pertinent clinical information, including history, physical exam and plan: Yes Notes (Text): Agree with findings and plan as above.
== END 2018-12-24 13:30 | disposition home or self-care (01) ==
LOC: H.ER 13:23 → H.ERHOLD 17:16 → H.TEL 22:00
PROVIDERS: ADMIT Student in an Organized Health Care Education/Training Program; ATTEND Student in an Organized Health Care Education/Training Program
DX: R07.9 Chest pain, unspecified (principal); R53.1 Weakness; E03.9 Hypothyroidism, unspecified; E78.00 Pure hypercholesterolemia, unspecified; I10 Essential (primary) hypertension; I25.10 Atherosclerotic heart disease of native coronary artery without angina pectoris; I25.2 Old myocardial infarction; J45.909 Unspecified asthma, uncomplicated; Z79.4 Long term (current) use of insulin; Z79.890 Hormone replacement therapy; Z87.891 Personal history of nicotine dependence; Z95.5 Presence of coronary angioplasty implant and graft; Z96.642 Presence of left artificial hip joint; Z88.0 Allergy status to penicillin; Z91.041 Radiographic dye allergy status; H91.92 Unspecified hearing loss, left ear; F41.9 Anxiety disorder, unspecified; F32.9 Major depressive disorder, single episode, unspecified; E11.9 Type 2 diabetes mellitus without complications
CPT/HCPCS: 36415; 70450; 71045; 80053; 80061; 81003; 82948; 83036; 84436; 84443; 84481; 84484; 85025; 93005; 99283; G0378; G0480